=== PATIENT | female | born 1985 | race Caucasian/White ===

== ENCOUNTER 2021-12-12 14:45 | Outpatient (CLI) | payer BC, SELFPAY ==
--- OUTSIDE RECORDS SUMMARY | 2021-12-12 14:46 | XMS_ITS ---
:1985 Author Care Team Providers Name Role Phone Karlee Haganemarie Primary Care Provider Unavailable Allergies Code Code System Name Reaction Severity Status Onset NKDA ? Medications Name Status Start Date Stop Date ? ? Baby Aspirin 81 mg chewable tablet Active ? Not available Chew 1 tablet every day by oral route. digestive enzymes Active ? Not available Elderberry Active ? Not available + DHA Active ? Not available Probiotic Active ? Not available True Metrix Glucose Meter Active ? Not av ailable USE DIRECTED True Metrix Glucose Test Strip Active ? N ot available USE TO TEST BLOOD SUGAR 4 TIMES A DAY TRUEplus Lancets 28 gauge Active ? Not av ailable USE TO TEST BLOOD SUGAR 4 TIMES A DAY Vitamin C Active ? Not available Vitamin D3 Active ? Not available Problems Name Status Onset Date Source ? Obesity Active 06/13/2021 ? Mixed Anxiety and Depressive Disorder Active 06/13/2021 ? Active 06/13/2021 ? Procedures Date Name Performed by ? ? Extraction of [place] Tooth Information n ot available Results Lab Results None recorded. Past Encounters 11/15/2021 Routine Care Vanesa Hagan APRN CNM, WILLIAM: [address] [facility], [address] [address], [place] [address], Ph. 11/02/2021 Routine Care Vanesa Hagan APRN CNM, WHNP: [address] [facility], [facility] [address], [place] [address], Ph. 09/19/2021 Routine Care Vanesa Hagan APRN CNM, WHNP: [address] [facility], [address] [address], [place] [address], Ph. 07/25/2021 Routine Care Vanesa Hagan APRN CNM, WHNP: [address] [facility], [facility] [address], [place] [address], Ph. 06/13/2021 Routine Care Vanesa Hagan APRN CNM, WILLIAM: [address] [facility], [facility] [address], [place] [address], Ph. Social History Tobacco Smoking Status Never Smoker Vaccine List Notes: Declines flu and COVID-19 vacci ne Plan of Care Reminders Provider Appointments None recorded. ? ? Lab None recorded. ? ? Referral None recorded. ? ? Procedures None recorded. ? ? Surgeries None recorded. ? ? Imaging None recorded. ? ? Vitals 11/15/2021 02:00PM Visit Height Weight BMI Blood Pressure 62 in 275 lbs 6.4 oz 50.4 kg/m2 122/62 mm[Hg] 11/02/2021 09:00AM Visit Height Weight BMI Blood Pressure 62 in 274 lbs 8 oz 50.2 kg/m2 120/62 mm[Hg] 09/19/2021 03:00PM Visit Height Weight BMI Blood Pressure 62 in 264 lbs 48.3 kg/m2 118/62 mm[Hg] 07/25/2021 03:00PM Visit Height Weight BMI Blood Pressure 62 in 255 lbs 5.92 oz 46.7 kg/m2 116/64 mm[Hg] 06/13/2021 01:00PM Visit Height Weight BMI Blood Pressure 62 in 248 lbs 45.4 kg/m2 108/72 mm[Hg]
--- OUTSIDE RECORDS SUMMARY | 2021-12-12 14:46 | XMS_ITS | Encounter Summary ---
:1985 Author Reason for Visit (24, 25, 26, 27, 28 week) visit Assessment and Plan Assessment Note 1. EVETTE at 23.5 weeks gestation. 2. Obesity. - Reviewed PTL S/S, when to seek medical care. - Encouraged class via [place] if possible. - Encouraged daily baby ASA. - Reviewed comfort measures of ligament stretching and adequate hydration for suspicious constipation. - RTC in 4 weeks at [place], then 8 w eeks at [facility]. Time spent face to face for EVETTE was 40 m inutes. 1. Routine care Discussion Note: None recorded.Patient educational handouts: No information available. Plan of Care Reminders Provider Appointments Visit 12/20/2021 10:00AM Vanesa tan APRN CNLázaro, WILLIAM Lab None recorded. ? ? Referral None recorded. ? ? Procedures None recorded. ? ? Surgeries None recorded. ? ? Imaging None recorded. ? ? Medications Name Start Date ? ? Baby Aspirin 81 mg chewable tablet ? Chew 1 tablet every day by oral route. digestive enzymes ? Elderberry ? + DHA ? Probiotic ? True Metrix Glucose Meter ? USE DIRECTED True Metrix Glucose Test Strip ? USE TO TEST BLOOD SUGAR 4 TIMES A DAY TRUEplus Lancets 28 gauge ? USE TO TEST BLOOD SUGAR 4 TIMES A DAY Vitamin C ? Vitamin D3 ? Medications Administered None recorded. Vitals Height Weight BMI Blood Pressure 62 in 264 lbs 48.3 kg/m2 118/62 mm[Hg] Results Lab Results None recorded. Allergies Code Code System Name Reaction Severity Onset NKDA ? ? ? Problems Name Status Onset Date Source ? Obesity Active 06/13/2021 ? Mixed Anxiety and Depressive Disorder Active 06/13/2021 ? Active 06/13/2021 ? Procedures Date Name Performed by ? ? Extraction of [place] Tooth Information n ot available Vaccine List Notes: Declines flu and COVID-19 vacci ne Social History Tobacco Smoking Status Never Smoker Do you have difficulty walking or climbing N stairs? What type of diet are you following? REGULAR Have you been exposed to chemicals or N toxins? What is the highest grade or level of [id number] school you have completed or the highest degree you have received? Have you used any illegal drugs while N ? Do you have any transportation challenges? N Are you able to care for yourself? Y Are you currently employed? Y Are you blind or do you have difficulty N seeing? Do you have transportation difficulties? N Do you have enough food to eat? Y Have you been exposed to heavy metals? N Have you ever been hit/kicked/slapped or N raped in your current relationship? Do you have difficulty doing errands alone? N Have you consumed alcohol since becoming N ? Do you use any illicit or recreational N drugs? Have you ever experienced abuse from family N members, friends, past relationships, etc? Have there been any changes to your family N or social situation? What is your exercise level? Moderate What is your relationship status? Domestic partner What is your level of alcohol consumption? Moderate Notes: pre- Do you currently smoke or vape? N Are you sexually active? Y Are you deaf or do you have serious N difficulty hearing? Do you have people in your life you can Y reach out to for help Do you have difficulty concentrating, N remembering or making decisions? Are you passively exposed to smoke? Y No teresita: childhood Are you a survivor of abuse? N Do you or have you ever used any other N forms of tobacco or nicotine? Do you experience mental or emotional abuse N in your current relationship? Do you feel stressed (tense, restless, [id number] nervous, or anxious, or unable to sleep at night)? Do you have difficulty dressing or bathing? N Family History Relation Problem Onset Age of Age Notes Sister Polycystic ovary syndrome (No Information) N/A (No Notes) Functional Status No Impairment. Past Encounters 09/19/2021 Routine Care Vanesa Hagan APRN CNM, WILLIAM: [address] [facility], [place] [address], Ph. History of Present Illness Note: <div>This is a 36 year old presenting to the clinic for an EVETTE at 23.5 weekd gestation. See prentatl entry. Feeling well, no concerns. Anatomy U/S at [facility] and [facility]. Obtained a youth services librarian and excited to meet with her. Next visit in 4 weeks at [facility].</div>Review of Systems: ROS as noted in the HPI Review of Systems None recorded. Physical Exam ? Notes: See flowsheet
--- OUTSIDE RECORDS SUMMARY | 2021-12-12 14:46 | XMS_ITS | Encounter Summary ---
:1985 Author Reason for Visit (29, 30, 31 week) visit Assessment and Plan Assessment Note 1. EVETTE at 30 weeks. 2. Obesity. - Reviewed remainder of shared care mode l. Patient doing well, encouraged adequate hydration and limiting sugar within diet. - Encouraged swimming/tub soaks for feet swelling, as well as eliminating sodium intake. - RTC in 2 weeks. Time spent face to face for 30 week gest ation was 45 minutes. 1. Routine care Discussion Note: None recorded.Patient educational handouts: No information available. Plan of Care Reminders Provider Appointments Visit 12/20/2021 10:00AM Vanesa tan APRN CNM, WILLIAM Lab None recorded. ? ? Referral [...] lbs 8 oz 50.2 kg/m2 120/62 mm[Hg] Results Lab Results None recorded. Allergies Code Code System Name Reaction Severity Onset NKDA ? ? ? Problems Name Status Onset Date Source ? Obesity Active 06/13/2021 ? Mixed Anxiety and Depressive Disorder Active 06/13/2021 ? Active 06/13/2021 ? Procedures Date Name Performed by ? ? Extraction of [place] Tooth Information n ot available Vaccine List Notes: Declines flu and COVID-19 vacci ne Social History Tobacco Smoking Status Never Smoker Do you have difficulty walking or climbing N stairs? What type of diet are you following? REGULAR Have you been exposed to chemicals or N toxins? What is the highest grade or level of [id number] school you have completed or the highest [...] relationship? Do you feel stressed (tense, restless, [id number] nervous, or anxious, or unable to sleep at night)? Do you have difficulty dressing or bathing? N Family History Relation Problem Onset Age of Age Notes Sister Polycystic ovary syndrome (No Information) N/A (No Notes) Functional Status No Impairment. Past Encounters 11/02/2021 Routine Care Vanesa Hagan APRN CNM, WILLIAM: [address] [facility], [address], [place] [address], Ph. History of Present Illness Note: <div>Have you breastfed in the past? {{NA YES NO*}}
If so, did you meet you goals? {{NA* YES NO}}
Did you notice breast changes at the beginning of ?{{YES NO*}}
Do you have any history of breast surgery?{{YES-reduction YES-augmentation YES-other NO*}}
Do you have any concerns about the size or shape of your breasts or nipples?{{YES NO*}}
Do you have any other concerns about ?{{YES NO* NA-PLAN TO FORMULA FEED}}</div>Review of Systems: ROS as noted in the HPI Review of Systems None recorded. Physical Exam ? Notes: See flowsheet
--- OUTSIDE RECORDS SUMMARY | 2021-12-12 14:46 | XMS_ITS | Encounter Summary ---
:1985 Author Reason for Visit (32, 33, 34, 35 week) visit Assessment and Plan Assessment Note 1. EVETTE at 32.1 weeks gestation. 2. Stress. 3. Obesity. - Reviewed comfort measures of uterine c ramping. Reviewed PTL S/S and when to seek medical attention. - Encouraged 2 week EVETTE in [place] as they desire a growth U/S secondary to obesity. Reviewed WNL fundal height and guidelines facilities may follow with BMI >40. - RTC 2 week PP for mood check. Time spent face to face for EVETTE at 32 we eks was 50 minutes. 1. Routine care Discussion Note: None recorded.Patient educational handouts: No information available. Plan of Care Reminders Provider Appointments Visit 12/20/2021 10:00AM Vanesa tan APRN CNLázaro, WHVINEET Lab None recorded. ? ? Referral None [...] lbs 6.4 oz 50.4 kg/m2 122/62 mm[Hg] Results Lab Results None recorded. Allergies Code Code System Name Reaction Severity Onset NKDA ? ? ? Problems Name Status Onset Date Source ? Obesity Active 06/13/2021 ? Mixed Anxiety and Depressive Disorder Active 06/13/2021 ? Active 06/13/2021 ? Procedures Date Name Performed by ? ? Extraction of [place] Tooth Information n ot available Vaccine List Notes: Declines flu and COVID-19 vacci ne Social History Tobacco Smoking Status Never Smoker Do you have difficulty walking or climbing N stairs? What type of diet are you following? REGULAR Have you been exposed to chemicals or N toxins? What is the highest grade or level of [id number] school you have completed or the highest [...] relationship? Do you feel stressed (tense, restless, [id number] nervous, or anxious, or unable to sleep at night)? Do you have difficulty dressing or bathing? N Family History Relation Problem Onset Age of Age Notes Sister Polycystic ovary syndrome (No Information) N/A (No Notes) Functional Status No Impairment. Past Encounters 11/15/2021 Routine Care Vanesa Hagan APRN CNM, WHNP: [address] [facility], [address] [address], [place] [address], Ph. 11/02/2021 Routine Care Vanesa Hagan APRN CNM, WHNP: [address] [facility], [address] [address] [address], Ph. History of Present Illness Note: <div>Feeling well, no concerns. See OB flowsheet.</div>Review of Systems: ROS as noted in the HPI Review of Systems None recorded. Physical Exam ? Notes: See flowsheet
[2021-12-13 23:36] LABS: Strep B DNA Probe NEGATIVE (Negative)
== END 2021-12-12 14:46 | disposition home or self-care (01) ==
LOC: NFLDREF 14:45
PROVIDERS: Visit Provider Advanced Practice Midwife
DX: Z34.93 Encounter for supervision of normal pregnancy, unspecified, third trimester (principal); Z3A.36 36 weeks gestation of pregnancy
CPT/HCPCS: 87081; 87653

== ENCOUNTER 2022-01-15 14:55 | Outpatient (CLI) | payer BC, SELFPAY ==
--- OUTSIDE RECORDS SUMMARY | 2022-01-15 14:56 | XMS_ITS | Clinical Summary ---
:1985 Author Organization [facility] Address [address] [place] [address] Care Team Providers Name Role Phone None, Pcp Primary Care Provider Unavailable Allergies Active Allergy Reactions Severity Noted Date Comments Seasonal Other (see comments) Low 07/13/2020 Sinus c ongestion, drainage Medications Medication Sig Dispensed Refills Start Date End Date Status UNABLE TO FIND Med Name: 0 Activ e Livaplex, Ligaplex, OvexP, CystO, Cognitive enhancer, Beta, Magnesium Lactate, Tumeric Forte, Lymphtone, Lappa levothyroxine Take 1 tablet (50 30 tablet 3 07/26/2020 Active (Synthroid) 50 MCG mcg total) by tabletIndications: mouth 1 (one) time Hypothyroidism, each day unspecified type Immunizations Name Administration Dates Next Due Hepatitis A 01/08/2012 Meningococcal MCV4P 01/08/2012 Td 12/19/1998 Tdap 01/08/2012 Typhoid Inactivated 01/08/2012 Family History Medical History Relation Comments Obesity Father Obesity Father's Brother Obesity Father's Sister Heart disease Maternal Grandfather Anxiety disorder Maternal Grandmother Insomnia Maternal Grandmother Obesity Mother Obesity Mother's Brother No Known Problems Mother's Sister 1 Obesity Mother's Sister 2 Cancer Paternal Grandfather skin cancer Obesity Sister 1 Polycystic ovary syndrome Sister 1 Obesity Sister 2 Relation Status Comments Father Alive Father's Brother Alive half brother Father's Sister Alive half sister Maternal Grandfather Alive Maternal Grandmother Alive Mother Alive Mother's Brother Alive Mother's Sister 1 Alive Mother's Sister 2 Alive Paternal Grandfather Alive Paternal Grandmother never met grandmoth er Sister 1 Alive Sister 2 Alive Social History Tobacco Use Types Packs/Day Years Used Date Never Smoker Smokeless Tobacco: Never Used Alcohol Use Standard Drinks/Week Comments Yes 0 (1 standard drink = 0.6 oz pure alcoho l) Alcohol Habits Answer Date Recorded How often do you have a drink containing alcohol? 2-3 times a week 07/13/2020 How many drinks containing alcohol do you have on a 3 or 4 07/13/2020 typical day when you are drinking? How often do you have six or more drinks on one Monthly 07/13/2020 occasion? Comment: Not asked Sex Assigned at Date Recorded Not on file Last Filed Vital Signs Vital Sign Reading Time Taken Comments Blood Pressure 112/80 07/13/2020 8:27 AM CDT Pulse 72 07/13/2020 8:27 AM CDT Temperature 36.5 ??C (97.7 ??F) 07/13/2020 8:27 AM CDT Respiratory Rate 16 07/13/2020 8:27 AM CDT Oxygen Saturation 96% 07/13/2020 8:27 AM CDT Inhaled Oxygen Concentration - - Weight 105 kg (232 lb 9.4 oz) 07/13/2020 8:27 AM CDT Height 156.2 cm (5' 1.5) 07/13/2020 8:27 AM CDT Body Mass Index 43.24 07/13/2020 8:27 AM CDT Plan of Treatment Health Maintenance Due Date Last Done Comments COVID-19 Vaccine (#1) 01/18/1987 Pap Smear 01/23/2023 01/23/2018 HPV Vaccines Aged Out No longer eligib le based on patient's age to complete this topic Pneumococcal Vaccine: Pediatrics Aged Out No longer eligible based on (0 to 5 Years) and At-Risk patie nt's age to complete Patients (6 to 64 Years) this to [facility] Insurance Payer Benefit Plan / Subscriber ID Effective Dates Phone Addre ss Type Group BCBS OF BCBS OF [id number] 2019-Prese [address] [address] [place] [address] Care Teams Japanese Tutor Relationship Specialty Start Date End Date None, Pcp PCP - General 06/20/[address] [place] [phone]
--- OUTSIDE RECORDS SUMMARY | 2022-01-15 14:56 | XMS_ITS | Encounter Summary ---
:1985 Author Organization [facility] Address [address] [place] [address] Care Team Providers Name Role Phone Freida Stanton MD Primary Care Provider Unavailable Reason for Visit Reason Onset Date Comments need to schedule US 07/26/2020 Encounter Details Date Type Department Care Team Description 07/26/2020 Telephone Freida Pierre, need to schedule [address] [facility] [place] [address] Social History Tobacco Use Types Packs/Day Years [...] Assigned at Date Recorded Not on file documented as of this encounter Miscellaneous Notes Telephone Encounter - Ashanti Mcneal - 07/27/2020 9:57 AM CDT Pt doesn't want to have the ultrasound done or fill the rx for her thyroid. Telephone Encounter - Ashanti Mcneal - 07/26/2020 3:11 PM CDT LMTCB documented in this encounter Plan of Treatment Not on filedocumented as of this encounter Visit Diagnoses Not on filedocumented in this encounter Care Teams Student Support Counselor Relationship Specialty Start Date End Date Freida Stanton MD PCP - General Family Medicine 02/08/19 documented as of this encounter
--- OUTSIDE RECORDS SUMMARY | 2022-01-15 14:56 | XMS_ITS | Encounter Summary ---
:1985 Author Organization [facility] Address [address] [place] [address] Care Team Providers Name Role Phone Freida Stanton MD Primary Care Provider Unavailable Encounter Details Date Type Department Care Team Description 07/13/2020 Orders Only Freida Pierre Hypothyroidism, unspecified type (Primary Dx); [address] [place] [address] Social History Tobacco Use Types Packs/Day Years [...] on file documented as of this encounter Plan of Treatment Not on filedocumented as of this encounter Visit Diagnoses Diagnosis Hypothyroidism, unspecified type - Prima ry Irregular periods documented in this encounter Care Teams Branch Credit Counselor Relationship Specialty Start Date End Date Freida Stanton MD PCP - General Family Medicine 02/08/19 documented as of this encounter
--- OUTSIDE RECORDS SUMMARY | 2022-01-15 14:56 | XMS_ITS | Encounter Summary ---
:1985 Author Organization [facility] Address [address] [place] [address] Care Team Providers Name Role Phone Freida Stanton MD Primary Care Provider Unavailable Encounter Details Date Type Department Care Team Description 07/20/2020 Orders Only Family Med Freida Stanton MD [address] [place] [address] Social History Tobacco Use Types Packs/Day Years [...] on filedocumented in this encounter Care Teams Regulatory Affairs Assistant Relationship Specialty Start Date End Date Freida Stanton MD PCP - General Family Medicine 02/08/19 documented as of this encounter
--- OUTSIDE RECORDS SUMMARY | 2022-01-15 14:57 | XMS_ITS | Encounter Summary ---
:1985 Author Reason for Visit (36, 37, 38, 39, 40 week) visit Assessment and Plan Assessment Note 1. EVETTE at 37 weeks. 2. Obesity in . 3. AMA. - Reviewed comfort measures for swelling , joint discomfort and sleep. - Labor S/S reviewed, along with labor m aneuvers/comfort measures for malpositioned baby in labor. - PNC to be complete at [facility]. - Reviewed warning S/S of GHTN/Pre-eclam psia. - RTC in 1 week [facility]. - RTC at [facility] 2 weeks PP for mood check. Reviewed PP care done at [facility]. Time spent face to face reviewing end of , risk factors, warning S/S, comfort measures and coordinating a POC for PP was 60 minutes. 1. Routine care Discussion Note: None recorded.Patient educational handouts: No information available. Plan of Care Reminders Provider Appointments Return to Office on or around Vanesa azar, MANAGER [employer] 01/31/2022 OLIVIA, WILLIAM Lab None recorded. ? ? Referral None recorded. ? ? Procedures None recorded. ? ? Surgeries None recorded. ? ? Imaging None recorded. ? ? Medications Name Start Date ? ? Baby Aspirin 81 mg chewable tablet ? Chew 1 tablet every day by oral route. digestive enzymes ? Elderberry ? + DHA ? Probiotic ? Vitamin C ? Vitamin D3 ? Medications Administered None recorded. Vitals Height Weight BMI Blood Pressure 62 in 294 lbs 53.8 kg/m2 112/66 mm[Hg] Results Lab Results None recorded. Allergies Code Code System Name Reaction Severity Onset NKDA ? ? ? Problems Name Status Onset Date Source ? Mixed Anxiety and Depressive Disorder Active 06/13/2021 ? Active 06/13/2021 ? Obesity Active 12/20/2021 ? Procedures Date Name Performed by ? ? Extraction of [place] Tooth Information n ot available Vaccine List Notes: Declines flu and COVID-19 vacci ne Social History Tobacco Smoking Status Never Smoker Have you used any illegal drugs while N ? Do you have any transportation challenges? N Do you have difficulty walking or climbing N stairs? What type of diet are you following? REGULAR What is the highest grade or level of [id number] school you have completed or the highest degree you have received? Have you been exposed to chemicals or N toxins? Are you able to care for yourself? Y Are you currently employed? Y Are you blind or do you have difficulty N seeing? Do you have transportation difficulties? N Do you have enough food to eat? Y Have you been exposed to heavy metals? N Do you have difficulty doing errands alone? N Have you consumed alcohol since becoming N ? Do you use any illicit or recreational N drugs? What is your exercise level? Moderate Have there been any changes to your family N or social situation? What is your relationship status? Domestic partner What is your level of alcohol consumption? Moderate Notes: pre- Do you currently smoke or vape? N Are you sexually active? Y Do you have people in your life you can Y reach out to for help Are you deaf or do you have serious N difficulty hearing? Do you have difficulty concentrating, N remembering or making decisions? Are you a survivor of abuse? N Are you passively exposed to smoke? Y No teresita: childhood Do you or have you ever used any other N forms of tobacco or nicotine? Do you experience mental or emotional abuse N in your current relationship? Do you feel stressed (tense, restless, [id number] nervous, or anxious, or unable to sleep at night)? Do you have difficulty dressing or bathing? N Family History Relation Problem Onset Age of Age Notes Sister Polycystic ovary syndrome (No Information) N/A (No Notes) Functional Status No Impairment. Past Encounters 12/20/2021 Routine Care Vanesa Hagan APRN CNM, WHNP: [address] [facility] [address], [place] [address], Ph. History of Present Illness Note: <div>Presents alone. Feeling overall well, over it as her sleep has become uncomfortable and she is experiencing bilateral foot swelling. Using oils in the morning and evening to help redistribute the fluid. Encouraged to drink more water, take baths and/or a pool to help with ligament and swelling. Will try this weekend. Discussed risk factors: nullip, AMA, obesity and 40 lb weight gainfor potential complications. Reviewed warning S/S of GHTN/Pre- eclampsia: denies epigastric discomfort, RUQ discomfort, headaches or visual changes. B/P looks good. Discussed joint pain and comfort measures. Reviewed comfort measures of fluid retention. Discussed labor maneuvers,comfort positions for OP positioned baby. Baby OP per leopolds with EFW ~ 3700 grams, very active baby and with body habitus, estimate was difficult. Still goes to remittance clerk and chiropractor every week, along with massage once/week. Does not feel ready for baby, but ready for to be done. Was able to obtain another hyperbaric welder diver, Sandra Daniella. No growth U/S at [facility], WNL. GBS negative. Remainder of EVETTE at [facility], will schedule for 1 week. Labor S/S reviewed.</div>Review of Systems: ROS as noted in the HPI Review of Systems None recorded. Physical Exam ? Notes: See flowsheet
--- OUTSIDE RECORDS SUMMARY | 2022-01-15 14:57 | XMS_ITS | Encounter Summary ---
:1985 Author Reason for Visit (32, 33, 34, 35 week) visit Assessment and Plan Assessment Note 1. EVETTE at 32.1 weeks gestation. 2. Stress. 3. Obesity. - Reviewed comfort measures of uterine c ramping. Reviewed PTL S/S and when to seek medical attention. - Encouraged 2 week EVETTE in [place] as they desire a growth U/S secondary [...] Return to Office on or around Vanesa azar APRN 01/31/2022 CNM, WILLIAM Lab None recorded. ? ? [...] Name Performed by ? ? Extraction of [place] Tooth Information n ot available Vaccine List Notes: Declines flu and COVID-19 vacci ne Social History Tobacco Smoking Status Never Smoker Have you used any illegal drugs while N ? Do you have any transportation challenges? N Do you have difficulty walking or climbing N stairs? What type of diet are you following? REGULAR What is the highest grade or level of [id number] school you have completed or the highest [...] relationship? Do you feel stressed (tense, restless, [id number] nervous, or anxious, or unable to sleep at night)? Do you have difficulty dressing or bathing? N Family History Relation Problem Onset Age of Age Notes Sister Polycystic ovary syndrome (No Information) N/A (No Notes) Functional Status No Impairment. Past Encounters 11/15/2021 Routine Care Vanesa Hagan APRN CNM, WILLIAM: [address] [facility], [place] [address], [place] [address], Ph. 11/02/2021 Routine Care Vanesa Hagan APRN CNM, VINEET: [address] [facility], [place] [address], [place] [address], Ph. History of Present Illness Note: <div>Feeling well, no concerns. See OB flowsheet.</div>Review of Systems: ROS as noted in the HPI Review of Systems None recorded. Physical Exam ? Notes: See flowsheet
--- OUTSIDE RECORDS SUMMARY | 2022-01-15 14:57 | XMS_ITS ---
:1985 Author Care Team Providers Name Role Phone ArturoKarlee ricoemarie Primary Care Provider Unavailable Allergies Code Code [...] ? Not available True Metrix Glucose Meter Completed ? 2021 USE DIRECTED True Metrix Glucose Test Strip Completed ? 0 12/20/2021 USE TO TEST BLOOD SUGAR 4 TIMES A DAY TRUEplus Lancets 28 gauge Completed ? 2021 USE TO TEST BLOOD SUGAR 4 TIMES A DAY Vitamin C Active ? Not available Vitamin D3 Active ? Not available Problems Name Status Onset Date Source ? Mixed Anxiety and Depressive Disorder Active 06/13/2021 ? Active 06/13/2021 ? Obesity Active 12/20/2021 ? Procedures Date Name Performed by ? ? Extraction of [place] Tooth Information n ot available Results Lab Results None recorded. Past Encounters 12/20/2021 Routine Care Vanesa Hgaan APRN CNM, SPENSERNP: [address] [facility], [place] [address] [address], [place] [address], Ph. 11/15/2021 Routine Care Vanesa Hagan APRN CNM, VINEET: [address] [facility], [place] [address], Ph. 11/02/2021 Routine Care Vanesa Hagan APRN CNM, WILLIAM: [address] [facility], [facility] [address], [place] [address], Ph. 09/19/2021 Routine Care Vanesa Hagan APRN CNM, WILLIAM: [address] [facility], [facility] [address], [place] [address], Ph. 07/25/2021 Routine Care Vanesa Hagan APRN CNM, WILLIAM: [address] [facility], [place] [address], Ph. 06/13/2021 Routine Care Vanesa Hagan APRN CNM, WILLIAM: [address] [facility], [facility] [address], [place] [address], Ph. Social History Tobacco Smoking Status Never Smoker Vaccine List Notes: Declines flu and COVID-19 vacci ne Plan of Care Reminders Provider Appointments None recorded. ? ? Lab None recorded. ? ? Referral None recorded. ? ? Procedures None recorded. ? ? Surgeries None recorded. ? ? Imaging None recorded. ? ? Vitals 12/20/2021 10:00AM Visit Height Weight BMI Blood Pressure 62 in 294 lbs 53.8 kg/m2 112/66 mm[Hg] 11/15/2021 02:00PM Visit Height Weight BMI Blood [...]
--- OUTSIDE RECORDS SUMMARY | 2022-01-15 14:57 | XMS_ITS | Encounter Summary ---
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
--- OUTSIDE RECORDS SUMMARY | 2022-01-15 14:57 | XMS_ITS | Encounter Summary ---
:1985 Author Organization [facility] Address [address] [place] [address] Care Team Providers Name Role Phone Freida Stanton MD Primary Care Provider Unavailable Reason for Visit Reason Comments Annual Exam Encounter Details Date Type Department Care Team Description 02/08/2019 Office Visit Freida Pierre Well adult exam [address] [facility] [place] Iliana (Primary Dx) [place] [address] Social History Tobacco Use Types Packs/Day Years [...] on file documented as of this encounter Last Filed Vital Signs Vital Sign Reading Time Taken Comments Blood Pressure 120/72 02/08/2019 10:19 AM CDT Pulse 68 02/08/2019 10:19 AM CDT Temperature 36.5 ??C (97.7 ??F) 02/08/2019 10:19 AM CDT Respiratory Rate 16 02/08/2019 10:19 AM CDT Oxygen Saturation - - Inhaled Oxygen Concentration - - Weight 107 kg (236 lb 5.3 oz) 02/08/2019 10:19 AM CDT Height 155.6 cm (5' 1.26) 02/08/2019 10:19 AM CDT Body Mass Index 44.28 02/08/2019 10:19 AM CDT documented in this encounter Patient Instructions Patient InstructionsFrances E. Maximino, MD - 02/08/2019 10:20 AM CDT Patient Education Health Maintenance, Female Adopting a healthy lifestyle and getting preventive care can go a long way to promote health and wellness. Talk with your health care provider about what schedule of regular examinations is right for you. This is a good chance for you to check in with your provider about disease prevention and stayinghealthy. In between checkups, there are plenty of things you can do on your own. Experts have done a lot of research about which lifestyle changes and preventive measures are most likely to keep you healthy. Ask your health care provider for more information. Weight and diet Eat a healthy diet ?? Be sure to include plenty of vegetables, fruits, low-fat dairy products, and lean protein. ?? Do not eat a lot of foods high in solid fats, added sugars, or salt. ?? Get regular exercise. This is one of the most important things you can do for your health. ? Most adults should exercise for at least 150 minutes each week. The exercise should increase your heart rate and make you sweat (moderate-intensity exercise). ? Most adults should also do strengthening exercises at least twice a week. This is in addition to the moderate-intensity exercise. Maintain a healthy weight ?? Body mass index (BMI) is a measurement that can be used to identify possible weight problems. It estimates body fat based on height and weight. Your health care provider can help determine your BMI and help you achieve or maintain a healthy weight. ?? For females 20 years of age and older: ? A BMI below 18.5 is considered underweight. ? A BMI of 18.5 to 24.9 is normal. ? A BMI of 25 to 29.9 is considered overweight. ? A BMI of 30 and above is considered obese. Watch levels of cholesterol and blood lipids ?? You should start having your blood tested for lipids and cholesterol at 20 years of age, then have this test every 5 years. ?? You may need to have your cholesterol levels checked more often if: ? Your lipid or cholesterol levels are high. ? You are older than 50 years of age. ? You are at high risk for heart disease. Cancer screening Lung Cancer ?? Lung cancer screening is recommended for adults 55-80 years old who are at high risk for lung cancer because of a history of smoking. ?? A yearly low-dose CT scan of the lungs is recommended for people who: ? Currently smoke. ? Have quit within the past 15 years. ? Have at least a [id number] history of smoking. A pack year is smoking an average of one pack of cigarettes a day for 1 year. ?? Yearly screening should continue until it has been 15 years since you quit. ?? Yearly screening should stop if you develop a health problem that would prevent you from having lung cancer treatment. Breast Cancer ?? Practice breast self-awareness. This means understanding how your breasts normally appear and feel. ?? It also means doing regular breast self-exams. Let your health care provider know about any changes, no matter how small. ?? If you are in your 20s or 30s, you should have a clinical breast exam (CBE) by a health care provider every 1-3 years as part of a regular health exam. ?? If you are 40 or older, have a CBE every year. Also consider having a breast X-ray (mammogram) every year. ?? If you have a family history of breast cancer, talk to your health care provider about genetic screening. ?? If you are at high risk for breast cancer, talk to your health care provider about having an MRI and a mammogram every year. ?? Breast cancer gene (BRCA) assessment is recommended for women who have family members with BRCA-related cancers. BRCA-related cancers include: ? Breast. ? Ovarian. ? Tubal. ? Peritoneal cancers. ?? Results of the assessment will determine the need for genetic counseling and BRCA1 and BRCA2 testing. Cervical Cancer Your health care provider may recommend that you be screened regularly for cancer of the pelvic organs (ovaries, uterus, and vagina). This screening involves a pelvic examination, including checking for microscopic changes to the surface of your cervix (Pap test). You may be encouraged to have this screening done every 3 years, beginning at age 21. ?? For women ages 30-65, health care providers may recommend pelvic exams and Pap testing every 3 years, or they may recommend the Pap and pelvic exam, combined with testing for human papilloma virus (HPV), every 5 years. Some types of HPV increase your risk of cervical cancer. Testing for HPV may also be done on women of any age with unclear Pap test results. ?? Other health care providers may not recommend any screening for non women who are considered low risk for pelvic cancer and who do not have symptoms. Ask your health care provider if a screening pelvic exam is right for you. ?? If you have had past treatment for cervical cancer or a condition that could lead to cancer, you need Pap tests and screening for cancer for at least 20 years after your treatment. If Pap tests havebeen discontinued, your risk factors (such as having a new sexual partner) need to be reassessed to determine if screening should resume. Some women have medical problems that increase the chance of getting cervical cancer. In these cases, your health care provider may recommend more frequent screening and Pap tests. Colorectal Cancer ?? This type of cancer can be detected and often prevented. ?? Routine colorectal cancer screening usually begins at 50 years of age and continues through 75 years of age. ?? Your health care provider may recommend screening at an earlier age if you have risk factors for colon cancer. ?? Your health care provider may also recommend using home test kits to check for hidden blood in the stool. ?? A small camera at the end of a tube can be used to examine your colon directly (sigmoidoscopy or colonoscopy). This is done to check for the earliest forms of colorectal cancer. ?? Routine screening usually begins at age 50. ?? Direct examination of the colon should be repeated every 5-10 years through 75 years of age. However, you may need to be screened more often if early forms of precancerous polyps or small growths are found. Skin Cancer ?? Check your skin from head to toe regularly. ?? Tell your health care provider about any new moles or changes in moles, especially if there is a change in a mole's shape or color. ?? Also tell your health care provider if you have a mole that is larger than the size of a pencil eraser. ?? Always use sunscreen. Apply sunscreen liberally and repeatedly throughout the day. ?? Protect yourself by wearing long sleeves, pants, a wide-brimmed hat, and sunglasses whenever you are outside. Heart disease, diabetes, and high blood pressure ?? High blood pressure causes heart disease and increases the risk of stroke. High blood pressure ismore likely to develop in: ? People who have blood pressure in the high end of the normal range (130-139/85-89 mm Hg). ? People who are overweight or obese. ? People who are . ?? If you are 18-39 years of age, have your blood pressure checked every 3-5 years. If you are 40 years of age or older, have your blood pressure checked every year. You should have your blood pressuremeasured twice--once when you are at a hospital or clinic, and once when you are not at a hospital or clinic. Record the average of the two measurements. To check your blood pressure when you are not at a hospital or clinic, you can use: ? An automated blood pressure machine at a pharmacy. ? A home blood pressure monitor. ?? If you are between 55 years and 79 years old, ask your health care provider if you should take aspirin to prevent strokes. ?? Have regular diabetes screenings. This involves taking a blood sample to check your fasting bloodsugar level. ? If you are at a normal weight and have a low risk for diabetes, have this test once every three years after 45 years of age. ? If you are overweight and have a high risk for diabetes, consider being tested at a younger age ormore often. Preventing infection Hepatitis B ?? If you have a higher risk for hepatitis B, you should be screened for this virus. You are considered at high risk for hepatitis B if: ? You were born in a country where hepatitis B is common. Ask your health care provider which countries are considered high risk. ? Your parents were born in a high-risk country, and you have not been immunized against hepatitis B(hepatitis B vaccine). ? You have HIV or AIDS. ? You use needles to inject street drugs. ? You live with someone who has hepatitis B. ? You have had sex with someone who has hepatitis B. ? You get hemodialysis treatment. ? You take certain medicines for conditions, including cancer, organ transplantation, and autoimmuneconditions. Hepatitis C ?? Blood testing is recommended for: ? Everyone born from 1945 through 1965. ? Anyone with known risk factors for hepatitis C. Sexually transmitted infections (STIs) ?? You should be screened for sexually transmitted infections (STIs) including gonorrhea and chlamydia if: ? You are sexually active and are younger than 24 years of age. ? You are older than 24 years of age and your health care provider tells you that you are at risk for this type of infection. ? Your sexual activity has changed since you were last screened and you are at an increased risk forchlamydia or gonorrhea. Ask your health care provider if you are at risk. ?? If you do not have HIV, but are at risk, it may be recommended that you take a prescription medicine daily to prevent HIV infection. This is called pre- exposure prophylaxis (PrEP). You are considered at risk if: ? You are sexually active and do not regularly use condoms or know the HIV status of your partner(s). ? You take drugs by injection. ? You are sexually active with a partner who has HIV. Talk with your health care provider about whether you are at high risk of being infected with HIV. If you choose to begin PrEP, you should first be tested for HIV. You should then be tested every 3 months for as long as you are taking PrEP. ?? If you are premenopausal and you may become , ask your health care provider about preconception counseling. ?? If you may become , take 400 to 800 micrograms (mcg) of folic acid every day. ?? If you want to prevent , talk to your health care provider about control (contraception). Osteoporosis and menopause ?? Osteoporosis is a disease in which the bones lose minerals and strength with aging. This can result in serious bone fractures. Your risk for osteoporosis can be identified using a bone density scan. ?? If you are 65 years of age or older, or if you are at risk for osteoporosis and fractures, ask your health care provider if you should be screened. ?? Ask your health care provider whether you should take a calcium or vitamin D supplement to lower your risk for osteoporosis. ?? Menopause may have certain physical symptoms and risks. ?? Hormone replacement therapy may reduce some of these symptoms and risks. Talk to your health care provider about whether hormone replacement therapy is right for you. Follow these instructions at home: ?? Schedule regular health, dental, and eye exams. ?? Stay current with your immunizations. ?? Do not use any tobacco products including cigarettes, chewing tobacco, or electronic cigarettes. ?? If you are , do not drink alcohol. ?? If you are , limit how much and how often you drink alcohol. ?? Limit alcohol intake to no more than 1 drink per day for non women. One drink equals 12 ounces of beer, 5 ounces of wine, or 1?? ounces of hard liquor. ?? Do not use street drugs. ?? Do not share needles. ?? Ask your health care provider for help if you need support or information about quitting drugs. ?? Tell your health care provider if you often feel depressed. ?? Tell your health care provider if you have ever been abused or do not feel safe at home. This information is not intended to replace advice given to you by your health care provider. Make sure you discuss any questions you have with your health care provider. Document Released: 10/21/2011 Document Revised: 09/12/2016 Document Reviewed: 01/09/2016 [employer] Interactive Patient Education ?? 2019 Zones. documented in this encounter Progress Notes Freida Stanton MD - 02/08/2019 10:20 AM CDT Well Adult - Estab Subjective Patient ID: Rosie Stein is a 33 y.o. female. Chief Complaint Patient presents with ??? Annual Exam HPI Patient is a 33-year-old P0 who is here for an annual physical exam. She tells me she has had labs done 3 months ago that were normal. She shows me on her phone that a complete metabolic panel done on August 01, 2018 was completely normal and hemoglobin A1c was 4.9 at that time. She had a Pap smear last year that was normal including HPV testing. She declines flu vaccine today. She tells me that she has been doing a program called nutrition response testing which is in [place]. She [facility] [employer] and says that she has been doing that for 18 months and has changed her life. She is on various supplements and the goal is to taper off supplements completely. The idea is that she has reducedher processed and packaged food intake and eating more whole foods. She admits that the summer months are harder because she goes out quite a bit with her friends and eats out. She also consumes alcohol 2-3 times per week and when she drinks she drinks 2-4 alcoholic beverages per evening. She does notuse tobacco. 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 She exercises 3-5 times per week. She says her weight is stable. She lives by herself. She works in the [employer]. She has a monogamous relationship with a male partner. She has no concerns about STDs. She says that her periods are every 40 to 45 days andbleeding is 3 to 4 days and not heavy. She says her periods have always been somewhat irregular. Sheis to be on control but this caused her to have mood symptoms. She uses barrier method and timing of ovulation to avoid . Current Outpatient Medications on File Prior to Visit Medication Sig Dispense Refill ??? LILLOW 0.15-30 MG-MCG per tablet Take 1 tablet by mouth 1 (one) time each day (Patient not taking: Reported on 02/08/2019) 28 tablet 3 No current facility-administered medications on file prior to visit. Patient has no known allergies. Immunization History Administered Date(s) Administered ??? Hepatitis A 01/08/2012 ??? Meningococcal MCV4P 01/08/2012 ??? Td 12/19/1998 ??? Tdap 01/08/2012 ??? Typhoid Inactivated 01/08/2012 The following portions of the patient's chart were reviewed in this encounter and updated as appropriate: Tobacco Allergies Meds Med Hx Surg Hx Fam Hx Review of Systems Constitutional: Negative. HENT: Negative. Eyes: Negative. Respiratory: Negative. Cardiovascular: Negative. Gastrointestinal: Negative. Genitourinary: Negative. Musculoskeletal: Negative. Skin: Negative. Psychiatric/Behavioral: Negative. See HPI. Objective Physical Exam Blood pressure 120/72, pulse 68, temperature 36.5 ??C (97.7 ??F), temperature source Temporal, resp.rate 16, height 1.556 m (5' 1.26), weight 107 kg (236 lb 5.3 oz). General Appearance: Alert, cooperative, no distress. Head: Normocephalic, without obvious abnormality. Eyes: PERRL, conjunctiva/corneas clear, EOM's intact, fundi benign, both eyes Ears: Normal TM's and external ear canals, both ears Nose: Nares normal, no drainage Throat: Lips, mucosa, and tongue normal; teeth and gums normal Neck: Supple, symmetrical, trachea midline, no adenopathy; no thyromegaly Back: No tenderness. ROM normal. Lungs: Clear to auscultation bilaterally, respirations unlabored Chest Wall: No tenderness or deformity Heart: Regular rate and rhythm, S1 and S2 normal, no murmur, rub or gallop Breast Exam: No tenderness, masses, or nipple abnormality Abdomen: Soft, nontender, nondistended, no organomegaly. Normoactive bowel sounds. Genitalia: not performed Rectal: not performed Extremities: Extremities normal, atraumatic, without edema Pulses: 2+ and symmetric all extremities Skin: Skin without rashes or lesions Lymph nodes: Cervical, supraclavicular, and axillary nodes normal Neurologic: CNII-XII intact, normal strength, sensation and reflexes throughout PHQ 9 = 0 GAD7 = 1 Assessment/Plan Diagnoses and all orders for this visit: Well adult exam Patient's exam is notable for obesity but otherwise unremarkable. She has a healthy lifestyle and wedid discuss reducing alcohol intake. We also discussed influenza vaccine which she declines. I reviewed her previous labs including a normal TSH and CBC and an unremarkable lipid panel. She does not wish to do any further lab testing today and I do not think any are indicated. Patient information given regarding wellness. She will let me know if she wants to discuss further about family planning. Health Maintenance Due Topic Date Due ??? Pneumococcal PPSV23 Medium Risk Adult (1 of 1 - PPSV23) 2005 There are no Patient Instructions on file for this visit. documented in this encounter Plan of Treatment Not on filedocumented as of this encounter Visit Diagnoses Diagnosis Well adult exam - Primary Routine general medical examination at a health care facility documented in this encounter Care Teams Organ Fixer Relationship Specialty Start Date End Date Freida Stanton MD PCP - General Family Medicine 02/08/19 documented as of this encounter
--- OUTSIDE RECORDS SUMMARY | 2022-01-15 14:57 | XMS_ITS | Encounter Summary ---
:[address] 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
--- OUTSIDE RECORDS SUMMARY | 2022-01-15 14:57 | XMS_ITS | Encounter Summary ---
:[address] [facility] Address [address] [place] [address] Care Team Providers Name Role Phone Freida Stanton MD Primary Care Provider Unavailable Reason for Referral Consultation (Routine) - Closed Specialty Diagnoses / Procedures Referred By Contact Refer red To Contact Sleep Medicine Diagnoses Freida Gates MD [address] [place] [address] Referral ID Status Reason Start Date Expiration Date Visits V isits Requested Authorized [id number] Closed Specialty 07/13/2020 01/09/2021 1 1 Services Required Scheduling Instructions Staff from this department will contact the patient to schedule an appointment. Reason for Visit Reason Comments Annual Exam hormone imbalance left shoulder pain seeing chiropracter Encounter Details Date Type Department Care Team Description 07/13/2020 Office Visit Freida Pierre Well adult exam (Primary Dx) ; [address] [place] [address] Esa Barrientos MD Irregular periods; [place] [address] Encounter for preconception consultation; [phone] [place] Social History Tobacco Use Types Packs/Day Years [...] Mass Index 43.24 07/13/2020 8:27 AM CDT documented in this encounter Patient Instructions Patient InstructionsFrances Iliana Stanton MD - 07/13/2020 8:20 AM CDT Images from the original note were not included. Patient Education Preventive Care 21-39 Years Old, Female Preventive care refers to visits with your health care provider and lifestyle choices that can promote health and wellness. This includes: ?? A yearly physical exam. This may also be called an annual well check. ?? Regular dental visits and eye exams. ?? Immunizations. ?? Screening for certain conditions. ?? Healthy lifestyle choices, such as eating a healthy diet, getting regular exercise, not using drugs or products that contain nicotine and tobacco, and limiting alcohol use. What can I expect for my preventive care visit? Physical exam Your health care provider will check your: ?? Height and weight. This may be used to calculate body mass index (BMI), which tells if you are humble healthy weight. ?? Heart rate and blood pressure. ?? Skin for abnormal spots. Counseling Your health care provider may ask you questions about your: ?? Alcohol, tobacco, and drug use. ?? Emotional well-being. ?? Home and relationship well-being. ?? Sexual activity. ?? Eating habits. ?? Work and work environment. ?? Method of control. ?? Menstrual cycle. ?? history. What immunizations do I need? Influenza (flu) vaccine ?? This is recommended every year. Tetanus, diphtheria, and pertussis (Tdap) vaccine ?? You may need a Td booster every 10 years. Varicella (chickenpox) vaccine ?? You may need this if you have not been vaccinated. Human papillomavirus (HPV) vaccine ?? If recommended by your health care provider, you may need three doses over 6 months. Measles, mumps, and rubella (MMR) vaccine ?? You may need at least one dose of MMR. You may also need a second dose. Meningococcal conjugate (MenACWY) vaccine ?? One dose is recommended if you are age 19-21 years and a first-year college student living in a residence [place], or if you have one of several medical conditions. You may also need additional boosterdoses. Pneumococcal conjugate (PCV13) vaccine ?? You may need this if you have certain conditions and were not previously vaccinated. Pneumococcal polysaccharide (PPSV23) vaccine ?? You may need one or two doses if you smoke cigarettes or if you have certain conditions. Hepatitis A vaccine ?? You may need this if you have certain conditions or if you travel or work in places where you maybe exposed to hepatitis A. Hepatitis B vaccine ?? You may need this if you have certain conditions or if you travel or work in places where you maybe exposed to hepatitis B. Haemophilus influenzae type b (Hib) vaccine ?? You may need this if you have certain conditions. You may receive vaccines as individual doses or as more than one vaccine together in one shot (combination vaccines). Talk with your health care provider about the risks and benefits of combination vaccines. What tests do I need? Blood tests ?? Lipid and cholesterol levels. These may be checked every 5 years starting at age 20. ?? Hepatitis C test. ?? Hepatitis B test. Screening ?? Diabetes screening. This is done by checking your blood sugar (glucose) after you have not eaten for a while (fasting). ?? Sexually transmitted disease (STD) testing. ?? BRCA-related cancer screening. This may be done if you have a family history of breast, ovarian, tubal, or peritoneal cancers. ?? Pelvic exam and Pap test. This may be done every 3 years starting at age 21. Starting at age 30, this may be done every 5 years if you have a Pap test in combination with an HPV test. Talk with your health care provider about your test results, treatment options, and if necessary, the need for more tests. Follow these instructions at home: Eating and drinking ?? Eat a diet that includes fresh fruits and vegetables, whole grains, lean protein, and low-fat dairy. ?? Take vitamin and mineral supplements as recommended by your health care provider. ?? Do not drink alcohol if: ? Your health care provider tells you not to drink. ? You are , may be , or are planning to become . ?? If you drink alcohol: ? Limit how much you have to 0-1 drink a day. ? Be aware of how much alcohol is in your drink. In the [place] one drink equals one 12 oz bottle of beer (355 mL), one 5 oz glass of wine (148 mL), or one 1?? oz glass of hard liquor (44 mL). Lifestyle ?? Take daily care of your teeth and gums. ?? Stay active. Exercise for at least 30 minutes on 5 or more days each week. ?? Do not use any products that contain nicotine or tobacco, such as cigarettes, e-cigarettes, and chewing tobacco. If you need help quitting, ask your health care provider. ?? If you are sexually active, practice safe sex. Use a condom or other form of control (contraception) in order to prevent and STIs (sexually transmitted infections). If you plan to become , see your health care provider for a preconception visit. What's next? ?? Visit your health care provider once a year for a well check visit. ?? Ask your health care provider how often you should have your eyes and teeth checked. ?? Stay up to date on all vaccines. This information is not intended to replace advice given to you by your health care provider. Make sure you discuss any questions you have with your health care provider. Document Released: 06/03/2002 Document Revised: 12/17/2018 Document Reviewed: 12/17/2018 [employer] Patient Education ?? 2020 [employer]. documented in this encounter Progress Notes Freida Stanton MD - 07/13/2020 8:20 AM CDT Images from the original note were not included. Well Adult - Estab Subjective Patient ID: Rosie Stein is a 34 y.o. female. Chief Complaint Patient presents with ??? Annual Exam ??? hormone imbalance ??? left shoulder pain seeing chiropracter HPI Patient is a 34-year-old female P0 who was last seen in clinic by me in January 2019. She had a normal Pap and HPV testing at that time with recommendations to repeat in 5 years. She had labs drawn in 2019 that showed lipid panel of 159/101/61/77 and a glucose of 89. She had a TSH in 2017 that was 3.18. Concerns today are her irregular periods and fertility concerns. She says her periods have mostly been irregular since she started having periods at age 13. she says that she had regular periods when she was on the control pill but stopped that a couple of years ago. She then had a period of time where her periods were every 31 days when she was off the pill but then they were more irregular recently when she was on a keto diet where she lost 15 pounds. Now she is more on a well-balanced diet.She has some frustration because despite eating very well and working out regularly, she has plateaued as far as weight loss. She is in a relationship and considering starting a family though at this time they are using condoms for control. She is on a daily multivitamin with folic acid. She reports some increased anxiety related to work related stressors. She reports longstanding poor sleep, she sleeps on her back and does snore. She has some daytime sleepiness. She reports longstanding digestive problems with history of reflux that has resolved but she does have intermittent constipation and diarrhea. She does not smoke. She drinks 2-3 times per week and drinks 2-3 beverages per outing. Current Outpatient Medications on File Prior to Visit Medication Sig Dispense Refill ??? UNABLE TO FIND Med Name: Livaplex, Ligaplex, OvexP, CystO, Cognitive enhancer, Beta, Magnesium Lactate, Tumeric Forte, Lymphtone, Lappa No current facility-administered medications on file prior to visit. Seasonal Immunization History Administered Date(s) Administered ??? Hepatitis A 01/08/2012 ??? Meningococcal MCV4P 01/08/2012 ??? Td 12/19/1998 ??? Tdap 01/08/2012 ??? Typhoid Inactivated 01/08/2012 The following portions of the patient's chart were reviewed in this encounter and updated as appropriate: Tobacco Allergies Meds Med Hx Surg Hx Fam Hx Soc Hx Review of Systems As per HPI, All other systems reviewed and negative. Objective Physical Exam Blood pressure 112/80, pulse 72, temperature 36.5 ??C (97.7 ??F), temperature source Temporal, resp.rate 16, height 1.562 m (5' 1.5), weight 105 kg (232 lb 9.4 oz), SpO2 96 %. General Appearance: Alert, cooperative, no distress. Head: [...] no murmur, rub or gallop Breast Exam: Not examined Abdomen: Soft, nondistended, no organomegaly. She has some mild tenderness to deep palpation in the right lower abdomen but no palpable abnormality, no guarding or rebound. Normoactive bowel sounds. Genitalia: Not examined Rectal: Not examined Extremities: Extremities normal, atraumatic, without edema Pulses: 2+ and symmetric all extremities Skin: Skin without rashes or lesions Lymph nodes: Cervical, supraclavicular nodes normal Neurologic: No focal deficits PHQ 9 = 5 MOLLY 7 = 9 Assessment/Plan Diagnoses and all orders for this visit: Well adult exam Irregular periods - CBC Branch Off w/Diff; Future - TSH; Future - T4, free; Future - Comprehensive metabolic panel; Future - Ultrasound transvaginal non-OB; Future Encounter for preconception consultation - TSH; Future Snores - Ambulatory referral to Sleep Medicine A significant goal for her is to improve her sleep and after discussion, discussed having a referralto the clinic for possible sleep apnea. Discussed reducing or stopping alcohol intake. Discussed her fertility and would like to recheck her TSH with a goal of having her TSH less than 2.5. Also would like to obtain a pelvic ultrasound. Advised her to continue taking a multivitamin with folic acid if she is planning . Advised abstinence from alcohol. I will contact her with these results. She will be due for repeat HPV and Pap smear in January 2023. This dictation was created with voice recognition software and therefore may contain errors that went unnoticed. There are no preventive care reminders to display for this patient. Patient Instructions Patient Education Preventive Care 21-39 Years Old, Female Preventive care refers to visits with your health care provider and lifestyle choices that can promote health and wellness. This includes: ?? A yearly physical exam. This may also be called an annual well check. ?? Regular dental visits and eye exams. ?? Immunizations. ?? Screening for certain conditions. ?? Healthy lifestyle choices, such as eating a healthy diet, getting regular exercise, not using drugs or products that contain nicotine and tobacco, and limiting alcohol use. What can I expect for my preventive care visit? Physical exam Your health care provider will check your: ?? Height and weight. This may be used to calculate body mass index (BMI), which tells if you are humble healthy weight. ?? Heart rate and blood pressure. ?? Skin for abnormal spots. Counseling Your health care provider may ask you questions about your: ?? Alcohol, tobacco, and drug use. ?? Emotional well-being. ?? Home and relationship well-being. ?? Sexual activity. ?? Eating habits. ?? Work and work environment. ?? Method of control. ?? Menstrual cycle. ?? history. What immunizations do I need? Influenza (flu) vaccine ?? This is recommended every year. Tetanus, diphtheria, and pertussis (Tdap) vaccine ?? You may need a Td booster every 10 years. Varicella (chickenpox) vaccine ?? You may need this if you have not been vaccinated. Human papillomavirus (HPV) vaccine ?? If recommended by your health care provider, you may need three doses over 6 months. Measles, mumps, and rubella (MMR) vaccine ?? You may need at least one dose of MMR. You may also need a second dose. Meningococcal conjugate (MenACWY) vaccine ?? One dose is recommended if you are age 19-21 years and a first-year college student living in a residence [place], or if you have one of several medical conditions. You may also need additional boosterdoses. Pneumococcal conjugate (PCV13) vaccine ?? You may need this if you have certain conditions and were not previously vaccinated. Pneumococcal polysaccharide (PPSV23) vaccine ?? You may need one or two doses if you smoke cigarettes or if you have certain conditions. Hepatitis A vaccine ?? You may need this if you have certain conditions or if you travel or work in places where you maybe exposed to hepatitis A. Hepatitis B vaccine ?? You may need this if you have certain conditions or if you travel or work in places where you maybe exposed to hepatitis B. Haemophilus influenzae type b (Hib) vaccine ?? You may need this if you have certain conditions. You may receive vaccines as individual doses or as more than one vaccine together in one shot (combination vaccines). Talk with your health care provider about the risks and benefits of combination vaccines. What tests do I need? Blood tests ?? Lipid and cholesterol levels. These may be checked every 5 years starting at age 20. ?? Hepatitis C test. ?? Hepatitis B test. Screening ?? Diabetes screening. This is done by checking your blood sugar (glucose) after you have not eaten for a while (fasting). ?? Sexually transmitted disease (STD) testing. ?? BRCA-related cancer screening. This may be done if you have a family history of breast, ovarian, tubal, or peritoneal cancers. ?? Pelvic exam and Pap test. This may be done every 3 years starting at age 21. Starting at age 30, this may be done every 5 years if you have a Pap test in combination with an HPV test. Talk with your health care provider about your test results, treatment options, and if necessary, the need for more tests. Follow these instructions at home: Eating and drinking ?? Eat a diet that includes fresh fruits and vegetables, whole grains, lean protein, and low-fat dairy. ?? Take vitamin and mineral supplements as recommended by your health care provider. ?? Do not drink alcohol if: ? Your health care provider tells you not to drink. ? You are , may be , or are planning to become . ?? If you drink alcohol: ? Limit how much you have to 0-1 drink a day. ? Be aware of how much alcohol is in your drink. In the [place] one drink equals one 12 oz bottle of beer (355 mL), one 5 oz glass of wine (148 mL), or one 1?? oz glass of hard liquor (44 mL). Lifestyle ?? Take daily care of your teeth and gums. ?? Stay active. Exercise for at least 30 minutes on 5 or more days each week. ?? Do not use any products that contain nicotine or tobacco, such as cigarettes, e-cigarettes, and chewing tobacco. If you need help quitting, ask your health care provider. ?? If you are sexually active, practice safe sex. Use a condom or other form of control (contraception) in order to prevent and STIs (sexually transmitted infections). If you plan to become , see your health care provider for a preconception visit. What's next? ?? Visit your health care provider once a year for a well check visit. ?? Ask your health care provider how often you should have your eyes and teeth checked. ?? Stay up to date on all vaccines. This information is not intended to replace advice given to you by your health care provider. Make sure you discuss any questions you have with your health care provider. Document Released: 06/03/2002 Document Revised: 12/17/2018 Document Reviewed: 12/17/2018 [employer] Patient Education ?? 2020 [employer]. documented in this encounter Plan of Treatment Scheduled Orders Name Type Priority Associated Diagnoses Order S chedule Ultrasound transvaginal Imaging Routine Irregular periods Expected: 07/13/2020, non-OB Expires: 2021 Scheduled Referrals Name Type Priority Associated Order Schedule Diagnoses Ambulatory referral Outpatient Referral Routine Snores O rdered: to Sleep Medicine 07/13/2020 documented as of this encounter Results Comprehensive metabolic panel (07/13/2020 9:36 AM CDT) athologist Signature Total Protein 6.8 6.3 - 8.2 07/13/2020 [place] g/dL 1:44 PM [facility] Albumin, Serum 4.0 3.5 - 5.0 07/13/2020 [place] g/dL 1:44 PM [facility] Total Bilirubin <0.7 0.1 - 1.0 07/13/2020 [place] mg/dL 1:44 PM [facility] AST 24 8 - 43 U/L 07/13/2020 [place] 1:[address] [facility] Alkaline 38 38 - 128 07/13/2020 [place] Phosphatase U/L 1:44 PM [facility] ALT (SGPT) 27 0 - 34 U/L 07/13/2020 [place] 1:44 PM [facility] Sodium 138 135 - 145 07/13/2020 [place] mEq/L 1:44 PM [facility] Potassium 4.0 3.5 - 5.1 07/13/2020 [place] mEq/L 1:44 PM [facility] Chloride 107 98 - 107 07/13/2020 [place] mEq/L 1:44 PM [facility] CO2 27 22 - 29 07/13/2020 [place] mmol/L 1:44 PM [facility] BUN 14 5 - 25 07/13/2020 [place] mg/dL 1:44 PM [facility] Creatinine 0.7 0.4 - 1.2 07/13/2020 [place] mg/dL 1:44 PM [facility] Glucose 99 70 - 100 07/13/2020 [place] mg/dL 1:44 PM [facility] Calcium, Total,S 9.1 8.4 - 10.2 07/13/2020 [place] mg/dL 1:44 PM [facility] Fasting? Yes 07/13/2020 [place] 9:36 AM [facility] Specimen Anatomical Collection Method Collection Time Receive d Time (Source) Location / / Volume Laterality Blood 07/13/2020 9:36 AM CDT 12:58 PM CDT Freida Stanton MD LAB BLOOD ORDERABLES Performing Organization Address City/State/ZIP Code Phon e Number [facility] [address] [place] [address] (ABNORMAL) T4, free (07/13/2020 9:36 AM CDT) P athologist Signature Free T4 0.75 (L) 0.78 - 2.19 07/13/2020 [place] [facility] ng/dL 2:04 PM [facility] Comment: The results from this or any other diagn ostic test should be used and interpreted only in the context of the overall clinical picture. Heterophilic antibodies in serum or plas ma samples may cause interference in immunoassays. ??Exposure to animal antigens, either in the environment or as part of treatment or imaging procedures, may have circulating anti-an imal antibodies present. These antibodies may interfere with the assay reagents to produce unreliable results. ??Results which are inconsistent with clinical observations indicate the need for additional testing. Specimen Anatomical Collection Method Collection Time Receive d Time (Source) Location / / Volume Laterality Blood 07/13/2020 9:36 AM CDT 12:58 PM CDT Freida Stanton MD LAB BLOOD ORDERABLES Performing Organization Address City/[facility] e Number [facility] [address] [place] [address] TSH (07/13/2020 9:36 AM CDT) athologist Signature TSH, Sensitive 2.93 0.46 - 07/13/2020 [place] [facility] 4.68 mIU/L 2:04 PM CDT [facility] Comment: The results from this or any other diagn ostic test should be used and interpreted only in the context of the overall clinical picture. Biotin levels in serum remain elevated f or up to 24 hours after oral or intravenous biotin adminis tration and may interfere with this assay to produce unr eliable results. Heterophilic antibodies in serum or plas ma samples may cause interference in immunoassays. ??Exposure to animal antigens, either in the environment or as part of treatment or imaging procedures, may have circulating anti-an imal antibodies present. These antibodies may interfere with the assay reagents to produce unreliable results. ??Results which are inconsistent with clinical observations indicate the need for additional testing. Specimen Anatomical Collection Method Collection Time Receive d Time (Source) Location / / Volume Laterality Blood 07/13/2020 9:36 AM CDT 12:58 PM CDT Freida Stanton MD LAB BLOOD ORDERABLES Performing Organization Address [facility] e Number [facility] [address] [place] [address] CBC Branch Off w/Diff (07/13/2020 9:36 AM CDT) athologist Signature WBC 5.2 3.5 - 10.5 07/13/2020 [facility] [place] K/uL 9:54 AM CDT LAB RBC 4.30 3.90 - 07/13/2020 [facility] [place] 5.00 M/uL 9:54 AM CDT LAB Hemoglobin 13.6 12.0 - 07/13/2020 [facility] [place] 15.5 g/dL 9:54 AM CDT LAB Hematocrit 40.1 35.0 - 07/13/2020 [facility] [place] 44.0 % 9:54 AM CDT LAB Platelets 238 150 - 450 07/13/2020 [facility] [place] K/uL 9:54 AM CDT LAB MCV 93.3 81.6 - 07/13/2020 [facility] [place] 98.3 fL 9:54 AM CDT LAB MCH 31.6 26.0 - 07/13/2020 [facility] [place] 32.0 pg 9:54 AM CDT LAB MCHC 33.9 32.0 - 07/13/2020 [facility] [place] 36.0 g/dL 9:54 AM CDT LAB RDW 12.8 11.9 - 07/13/2020 [facility] [place] 15.5 % 9:54 AM CDT LAB Lymphocytes % 24.2 % 07/13/2020 [facility] [place] 9:54 AM CDT LAB Mid-size Cells 8.0 % 07/13/2020 [facility] [place] 9:54 AM CDT LAB Granulocytes/Dinesh 67.8 % 07/13/2020 [facility] [place] trophils 9:54 AM CDT LAB Lymphocytes 1.3 0.9 - 2.9 07/13/2020 [facility] [place] Absolute K/uL 9:54 AM CDT LAB MIDS Absolute 0.4 0.4 - 1.5 07/13/2020 [facility] [place] K/uL 9:54 AM CDT LAB Granulocytes/Dinesh 3.5 1.7 - 7.0 07/13/2020 [facility] [place] trophils K/uL 9:54 AM CDT LAB Absolute Specimen Anatomical Collection Method Collection Time Receive d Time (Source) Location / / Volume Laterality Blood 07/13/2020 9:36 AM 9:36 CDT AM CDT Freida Stanton MD LAB BLOOD ORDERABLES Performing Organization Address City/State/ZIP Code Phon e Number [facility] [address] [place] [address] [place] [address] documented in this encounter Visit Diagnoses Diagnosis Well adult exam - Primary Routine general medical examination at a health care facility Irregular periods Encounter for preconception consultation Snores Other dyspnea and respiratory abnormalit y documented in this encounter Care Teams Natural Sciences Manager Relationship Specialty Start Date End Date Freida Stanton MD PCP - General Family Medicine 02/08/19 documented as of this encounter
--- OUTSIDE RECORDS SUMMARY | 2022-01-15 14:57 | XMS_ITS | Encounter Summary ---
[...] Return to Office on or around Vanesa Victorino azar, ATTILA 01/31/2022 CNM, WILLIAM Lab None recorded. ? [...] Name Performed by ? ? Extraction of Louisa Tooth Information n ot available Vaccine List Notes: Declines flu and COVID-19 vacci ne Social History Tobacco Smoking Status Never Smoker Have you used any illegal drugs while N ? Do you have any transportation challenges? N Do you have difficulty walking or climbing N stairs? What type of diet are you following? REGULAR What is the highest grade or level of [id number] school you have completed or the highest [...] relationship? Do you feel stressed (tense, restless, [id number] nervous, or anxious, or unable to sleep at night)? Do you have difficulty dressing or bathing? N Family History Relation Problem Onset Age of Age Notes Sister Polycystic ovary syndrome (No Information) N/A (No Notes) Functional Status No Impairment. Past Encounters 11/02/2021 Routine Care Vanesa Hagan APRN CNM, WILLIAM: [address] [facility], [facility] [address], [place] [address], Ph. History of Present Illness Note: <div>Have [...]
--- OUTSIDE RECORDS SUMMARY | 2022-01-15 14:57 | XMS_ITS | Encounter Summary ---
:1985 Author Organization [facility] Address [address] [place] [address] Care Team Providers Name Role Phone Jayleen Wang FIRE EXTINGUISHER CHARGER, COFFEE TASTER Primary Care Provider Unavailable Reason for Visit Reason Comments Annual Exam Contraception pt stopped taking 8 weeks ag o Encounter Details Date Type Department Care Team Description 01/23/2018 Office Visit Ana Heath Estrada, Annual physical exam (Primar y Dx); [address] [facility] DNP, FIRE EXTINGUISHER CHARGER, COFFEE TASTER Screening for malignant neoplasm of cerv ix; [place] [address] Class 3 severe obesity without serious c omorbidity with body mass index (BMI) of 45.0 to 49.9 in adult, unspecified obesity type (HCC) [phone] [place] [address] Social History Tobacco Use Types Packs/Day Years [...] Sign Reading Time Taken Comments Blood Pressure 130/70 01/23/2018 8:23 AM CDT Pulse 72 01/23/2018 8:23 AM CDT Temperature 36.4 ??C (97.5 ??F) 01/23/2018 8:23 AM CDT Respiratory Rate 16 01/23/2018 8:23 AM CDT Oxygen Saturation 98% 01/23/2018 8:23 AM CDT Inhaled Oxygen Concentration - - Weight 111 kg (244 lb 0.8 oz) 01/23/2018 8:23 AM CDT Height 156.6 cm (5' 1.65) 01/23/2018 8:23 AM CDT Body Mass Index 45.14 01/23/2018 8:23 AM CDT documented in this encounter Patient Instructions Patient InstructionsHeath Hagan, MARIBEL, FIRE EXTINGUISHER CHARGER, COFFEE TASTER - 01/23/2018 8:20 AM CDT Images from the original note were not included. - Consider sleep apnea evaluation. Patient Education Sleep Apnea Sleep apnea is a condition in which breathing pauses or becomes shallow during sleep. Episodes of sleep apnea usually last 10 seconds or longer, and they may occur as many as 20 times an hour. Sleep apnea disrupts your sleep and keeps your body from getting the rest that it needs. This condition can increase your risk of certain health problems, including: ?? Heart attack. ?? Stroke. ?? Obesity. ?? Diabetes. ?? Heart failure. ?? Irregular heartbeat. There are three kinds of sleep apnea: ?? Obstructive sleep apnea. This kind is caused by a blocked or collapsed airway. ?? Central sleep apnea. This kind happens when the part of the brain that controls breathing does not send the correct signals to the muscles that control breathing. ?? Mixed sleep apnea. This is a combination of obstructive and central sleep apnea. What are the causes? The most common cause of this condition is a collapsed or blocked airway. An airway can collapse or become blocked if: ?? Your throat muscles are abnormally relaxed. ?? Your tongue and tonsils are larger than normal. ?? You are overweight. ?? Your airway is smaller than normal. What increases the risk? This condition is more likely to develop in people who: ?? Are overweight. ?? Smoke. ?? Have a smaller than normal airway. ?? Are elderly. ?? Are male. ?? Drink alcohol. ?? Take sedatives or tranquilizers. ?? Have a family history of sleep apnea. What are the signs or symptoms? Symptoms of this condition include: ?? Trouble staying asleep. ?? Daytime sleepiness and tiredness. ?? Irritability. ?? Loud snoring. ?? Morning headaches. ?? Trouble concentrating. ?? Forgetfulness. ?? Decreased interest in sex. ?? Unexplained sleepiness. ?? Mood swings. ?? Personality changes. ?? Feelings of depression. ?? Waking up often during the night to urinate. ?? Dry mouth. ?? Sore throat. How is this diagnosed? This condition may be diagnosed with: ?? A medical history. ?? A physical exam. ?? A series of tests that are done while you are sleeping (sleep study). These tests are usually done in a sleep lab, but they may also be done at home. How is this treated? Treatment for this condition aims to restore normal breathing and to ease symptoms during sleep. It may involve managing health issues that can affect breathing, such as high blood pressure or obesity.Treatment may include: ?? Sleeping on your side. ?? Using a decongestant if you have nasal congestion. ?? Avoiding the use of depressants, including alcohol, sedatives, and narcotics. ?? Losing weight if you are overweight. ?? Making changes to your diet. ?? Quitting smoking. ?? Using a device to open your airway while you sleep, such as: ? An oral appliance. This is a custom-made mouthpiece that shifts your lower jaw forward. ? A continuous positive airway pressure (CPAP) device. This device delivers oxygen to your airway through a mask. ? A nasal expiratory positive airway pressure (EPAP) device. This device has valves that you put into each nostril. ? A bi-level positive airway pressure (BPAP) device. This device delivers oxygen to your airway through a mask. ?? Surgery if other treatments do not work. During surgery, excess tissue is removed to create a wider airway. It is important to get treatment for sleep apnea. Without treatment, this condition can lead to: ?? High blood pressure. ?? Coronary artery disease. ?? (Men) An inability to achieve or maintain an erection (impotence). ?? Reduced thinking abilities. Follow these instructions at home: ?? Make any lifestyle changes that your health care provider recommends. ?? Eat a healthy, well-balanced diet. ?? Take [id number] and prescription medicines only as told by your health care provider. ?? Avoid using depressants, including alcohol, sedatives, and narcotics. ?? Take steps to lose weight if you are overweight. ?? If you were given a device to open your airway while you sleep, use it only as told by your health care provider. ?? Do not use any tobacco products, such as cigarettes, chewing tobacco, and e- cigarettes. If you need help quitting, ask your health care provider. ?? Keep all follow-up visits as told by your health care provider. This is important. Contact a health care provider if: ?? The device that you received to open your airway during sleep is uncomfortable or does not seem to be working. ?? Your symptoms do not improve. ?? Your symptoms get worse. Get help right away if: ?? You develop chest pain. ?? You develop shortness of breath. ?? You develop discomfort in your back, arms, or stomach. ?? You have trouble speaking. ?? You have weakness on one side of your body. ?? You have drooping in your face. These symptoms may represent a serious problem that is an emergency. Do not wait to see if the symptoms will go away. Get medical help right away. Call your local emergency services (911 in the [place] Do not drive yourself to the hospital. This information is not intended to replace advice given to you by your health care provider. Make sure you discuss any questions you have with your health care provider. Document Released: 03/28/2003 Document Revised: 12/01/2016 Document Reviewed: 01/15/2016 [employer] Patient Education ?? 2018 [employer] documented in this encounter Progress Notes Heath Hagan DNP, APRN, CNP - 01/23/2018 8:20 AM CDT Well Adult - Estab Subjective Patient ID: Massiel Stein is a 32 y.o. female. Chief Complaint Patient presents with ??? Annual Exam ??? Contraception pt stopped taking 8 weeks ago 32-year-old female comes into the clinic today for her annual exam. She notes that she does not haveany current concerns. She was taking control pills regularly, however stopped taking them about 8 weeks ago. She says that she feels better while she is not taking them. Her headaches have subsided and she has lost a small amount of weight. She feels that her mood is better. She says that her periods were not regular before she started the control pill. She has not had a period since she stopped taking it. She uses condoms for protection against , she does not believe she is . She does not have heavy periods or painful periods. She does have some underlying anxiety, however says this is manageable. She does have intermittent diarrhea and constipation and bloating. She is working with a chiropractor in [place] to address this. She also is getting nutritional advice from them. She says that she is trying to get back to exercising regularly again. She says she is now trying to exercise for 15 minutes 3 times per week. She does not smoke or use recreational drugs. She does drink alcohol about 15 servings per week. She says she does not get regular sleep. She snores loudly and wakes up frequently throughout the night. She thinks she has snorted herself awake once. She feels tired throughout the day. The following portions of the patient's chart were reviewed in this encounter and updated as appropriate: Tobacco Allergies Meds Med Hx Surg Hx Fam Hx Soc Hx Review of Systems Constitutional: Negative. HENT: Negative for ear pain. Eyes: Negative for pain and visual disturbance. Respiratory: Negative for cough, chest tightness and shortness of breath. Cardiovascular: Negative for chest pain, palpitations and leg swelling. Gastrointestinal: Negative for abdominal pain, blood in stool, constipation and diarrhea. Endocrine: Negative for cold intolerance, polydipsia and polyuria. Genitourinary: Negative for dysuria, pelvic pain, vaginal discharge and vaginal pain. Musculoskeletal: Negative for arthralgias and myalgias. Skin: Negative for rash. Intact, dry Neurological: Negative for seizures. Psychiatric/Behavioral: Negative for agitation and dysphoric mood. Objective Physical Exam Constitutional: She appears well-developed and well-nourished. HENT: Head: Normocephalic. Right Ear: External ear normal. Left Ear: External ear normal. Nose: Nose normal. Mouth/Throat: Oropharynx is clear and moist. Eyes: Conjunctivae are normal. Pupils are equal, round, and reactive to light. Neck: Normal range of motion. Neck supple. No thyromegaly present. Cardiovascular: Normal rate, regular rhythm and normal heart sounds. No murmur heard. Pulmonary/Chest: Effort normal and breath sounds normal. Abdominal: Soft. Bowel sounds are normal. She exhibits no mass. There is no tenderness. There is no rebound and no guarding. Genitourinary: Vagina normal and uterus normal. No vaginal discharge found. Genitourinary Comments: Cervix normal, no adnexa tenderness. No rashes or lesions present. Musculoskeletal: Normal range of motion. She exhibits no edema. Lymphadenopathy: She has no cervical adenopathy. Neurological: She is alert. No sensory deficit. Coordination normal. Skin: Skin is warm and dry. No rash noted. Psychiatric: She has a normal mood and affect. Her behavior is normal. Patient declined safety and health consultant for sensitive parts of exam. Assessment/Plan Diagnoses and all orders for this visit: Annual physical exam Screening for malignant neoplasm of cervix - Pap smear - HPV High Risk DNA Detection with Genotyping Class 3 severe obesity without serious comorbidity with body mass index (BMI) of 45.0 to 49.9 in adult, unspecified obesity type - Lipid panel, c14, and TSH drawn last year and were normal. -Patient does not want OCP refilled at this time. She will call when she wants it refilled. - Advised decreasing alcohol intake to 1 serving per day. She does not feel she has a dependency on alcohol currently. - She would like to continue nutrition counseling with her chiropractor. Advised her to call clinic if she would like a nutrition referral from [facility]. She is working on increasing her exercise. Advised 30 minutes per day at least 5 days per week. -Discussed symptoms of ESTEBAN with her and gave her a handout regarding this. Advised her that I would put a referral in to sleep medicine for further investigation of this, she will call if she is interested in this. -Follow up in 1 year, earlier if needed. Questions answered, patient verbalizes understanding and is in agreement with the plan of care. Heath Hagan DNP, ATTILA, KEISHA - 01/23/2018 8:20 AM CDT Hi Massiel, Your pap smear is normal. Your HPV test was negative. Your next pap smear should be in 5 years. documented in this encounter Plan of Treatment Not on filedocumented as of this encounter Procedures Procedure Name Priority Date/Time Associated Comments Diagnosis HPV HIGH RISK DNA Routine 01/23/2018 9:02 AM Screening for Res ults for this DETECTION WITH CDT malignant neoplasm procedu re are in GENOTYPING of cervix the results section. PAP TEST Routine 01/23/2018 9:02 AM Screening for Results for this CDT malignant neoplasm procedure are in of cervix the results section. documented in this encounter Results HPV High Risk DNA Detection with Genotyping (01/23/2018 9:02 AM CDT) [facility] gist Method Time Signature Source Endocervical 01/28/2018 [facility] 7:39 PM CDT LABORATORIES HPV Type 16 Negative Negative 01/28/2018 [facility] 7:39 PM CDT LABORATORIES HPV Type 18 Negative Negative 01/28/2018 [facility] 7:39 PM CDT LABORATORIES HPV non-Type Negative Negative 01/28/2018 [facility] 16 or 18 7:39 PM CDT LABORATORIES Comment: The following Other High Risk HPV types were not detected: 31, 33, 35, 39, 45, 51, 52, 56, 58, 59, 66, and 68 ADDITIONAL INFORMATIO N This test has been modified from the man nelsonr's instructions. Its performance characteri stics were determined by [facility] in a manner co nsistent with CLIA requirements. This test has not been tylor ared or approved by the U.S. Food and Drug Administration. Test Performed by: [facility] - [address] [address] Specimen (Source) Anatomical Collection Method Collection Time Re ceived Time Location / / Volume Laterality Pap collection 01/23/2018 9:02 01/23/2018 1:24 bottle AM CDT PM CDT Heath Estrada DNP, FIRE EXTINGUISHER CHARGER, COFFEE TASTER LAB CYTOLOGY ORDERABLES Performing Organization Address City/State/ZIP Code Phon e Number [facility] see result attachment for specific address (ABNORMAL) Pap smear (01/23/2018 9:02 AM CDT) Specimen Anatomical Collection Method Collection Time Receive d Time (Source) Location / / Volume Laterality Sure Path PAP, 01/23/2018 9:02 AM 018 1:40 screen (Cervix) CDT PM CDT Narrative [facility] - 01/19 1:32 PM CDT ? [facility] ? [address] ?[place] [address] ? Patient: ?MASSIEL STEIN ?Procedure: ? 01/23/2018 09:02 /Age/Sex: ??1985, 32 Y, F ? Received: ?01/23/2018 13:40 ?Accession #: ?? [id number] Billing: ?[id number] ?Patient Location: [id number] ?OFFICE Ordered by: ?? HEATH HAGAN, DNP, FIRE EXTINGUISHER CHARGER, COFFEE TASTER ?Attending: ? HEATH HAGAN, MARIBEL, ? KEISHA AIKEN ? SHOP HELPER CYTOLOGY FINAL REPORT SPECIMEN: (A) SURE PATH PAP, SCREEN SPECIMEN DESCRIPTION: Endocervical Received cloudy specimen in [facility] via l. CLINICAL INFORMATION: LMP: 11/07/2017 ?? Hormonal TX: Yes ?? P rev.normal: 2014 SPECIMEN ADEQUACY: Satisfactory for Evaluation. ??Endocervi gloria cells/transformation zone component present. GENERAL CATEGORIZATION: Negative for Intraepithelial Lesion or M alignancy INTERPRETATION/RESULTS: Reactive and reparative cellular changes . PAP Test Disclaimer Cervical cytology is a screening test pr imarily for squamous cancer and its precursors and has associated false-nega tive and false-positive results. Regular sampling and follow-up of unexplained cl inical signs and symptoms are recommended to minimize the impact of false negative and false positive results. Screened By: LAURYN YEH(ASCP) Signed By: DARERN SOLER MD <Sign Out Signature> Reported: ??01/29/2018 ? Page 1 of 1 Heath Estrada DNP, FIRE EXTINGUISHER CHARGER, COFFEE TASTER LAB CYTOLOGY ORDERABLES Performing Organization Address City/State/ZIP Code Phon e Number [facility] [address] [place] [address] documented in this encounter Visit Diagnoses Diagnosis Annual physical exam - Primary Routine general medical examination at a health care facility Screening for malignant neoplasm of cerv ix Screening for malignant neoplasm of the cervix Class 3 severe obesity without serious c omorbidity with body mass index (BMI) of 45.0 to 49.9 in adult, unspecified obesity ty pe (HCC) documented in this encounter Care Teams Cassandra Consultant Relationship Specialty Start Date End Date Jayleen Wang, ATTILA, COFFEE TASTER PCP - General 11/25/17 1 documented as of this encounter
--- OUTSIDE RECORDS SUMMARY | 2022-01-15 14:57 | XMS_ITS | Encounter Summary ---
:1985 Author Organization [facility] Address [address] [place] [address] Care Team Providers Name Role Phone None, Pcp Primary Care Provider Unavailable Reason for Visit Reason Onset Date Comments Med Refill 02/04/2018 Encounter Details Date Type Department Care Team Description 02/04/2018 Refill [facility] Internal Medicine Jayleen Wang, PRESSER MACHINE, PIPE FITTER MARINE [address] [place], [place] [phone] Social History Tobacco Use Types Packs/Day Years [...] this encounter Miscellaneous Notes Telephone Encounter - Lucero Mas LPN - 02/05/2018 10:48 AM CDT Pt called states she Is follows with [facility] and transferred to speak to them re med refillrequest. Pt reports has pap 01/23/18 By Emilee Cisneros Telephone Encounter - Jayleen Wang NP - 02/04/2018 4:50 PM CDT I don't see a pap smear on file. Also, if patient is not currently taking oral contraceptive, she will need a negative result to restart. Telephone Encounter - Brunilda Fabian LPN - 02/04/2018 3:33 PM CDT Marlissa (ethinyl estradiol-levonorgestrel) 30 mcg-0.15 mg tablet, oral, 1 tablet, Daily, 90 days Last Prescribed: 01/27/2017 Prescriber: Dwain Bowers Pharmacy: [facility] [place] Quantity: 3 packets Refills: 3 Instructions: patient is temporally not taking 01/16/18 Chronic: Y Last visit 11/27/16 No upcoming appts. Patient is due for f/u.Please advise on appt.and work with your staff . documented in this encounter Plan of Treatment Not on filedocumented as of this encounter Visit Diagnoses Not on filedocumented in this encounter Care Teams Raw Material Handler Relationship Specialty Start Date End Date None, Pcp PCP - General 06/20/[address] [place] [phone] documented as of this encounter
--- OUTSIDE RECORDS SUMMARY | 2022-01-15 14:57 | XMS_ITS | Encounter Summary ---
:1985 Author Organization [facility] Address [address] [place] [address] Care Team Providers Name Role Phone Jayleen Wang APRN, CNP Primary Care Provider Unavailable Reason for Visit Reason Onset Date Comments Med Refill 02/12/2018 Encounter Details Date Type Department Care Team Description 02/12/2018 Refill Dwain Lynn, Encounter for other [address] [facility] [place] [address] (Primary Dx) [phone] Social History Tobacco Use Types Packs/Day Years [...] as of this encounter Visit Diagnoses Diagnosis Encounter for other contraceptive manage ment - Primary documented in this encounter Care Teams Associate Professor Of Counseling Relationship Specialty Start Date End Date Jayleen Wang APRN, CNP PCP - General 11/25/17 1 documented as of this encounter
--- OUTSIDE RECORDS SUMMARY | 2022-01-15 14:57 | XMS_ITS | Encounter Summary ---
:1985 Author Organization [facility] Address [address] [place] [address] Care Team Providers Name Role Phone Freida Stanton MD Primary Care Provider Unavailable Encounter Details Date Type Department Care Team Description 02/11/2019 Abstract Freida Pierre MD [address] [place] [address] Social History Tobacco Use Types Packs/Day Years [...] encounter Procedures Procedure Name Priority Date/Time Associated Diagnosis Comme nts LIPID PANEL Routine 09/14/2018 Results for thi s procedure are i n the results section . BASIC METABOLIC PANEL Routine 09/14/2018 Result s for this procedure are i n the results section . HEMOGLOBIN A1C Routine 08/01/2018 Results for t his procedure are i n the results section . BASIC METABOLIC PANEL Routine 08/01/2018 Result s for this procedure are i n the results section . documented in this encounter Results Lipid panel (09/14/2018) Analysis Performed At Patho logist Time Signature Triglycerides 101 40 - 160 mg/dL Cholesterol 159 0 - 200 mg/dL HDL 61 35 - 70 mg/dL LDL Cholesterol 77 mg/dL (NMR) Specimen (Source) Anatomical Location Collection Method / Collectio n Time Received Time / Laterality Volume Blood (Blood, Venous) Historical Provider LAB BLOOD ORDERABLES (ABNORMAL) Basic metabolic panel (09/14/2018) [facility] Glucose 87 mg/dL Alkaline 49 U/L Phosphatase ALT (SGPT) 22 7 - 35 U/L AST 22 13 - 35 U/L BUN 16 4 - 21 mg/dL CREATININE IN 0.9 0.5 - 1.1 SER/PLAS mg/dL Total Bilirubin 0.4 0.1 - 1.4 mg/dL Total Protein 6.3 (A) 6.4 - 8.2 g/dL Albumin, Serum 4.3 3.5 - 5.0 g/dL Specimen (Source) Anatomical Location Collection Method / Collectio n Time Received Time / Laterality Volume Blood (Blood, Venous) Historical Provider LAB BLOOD ORDERABLES Hemoglobin A1c (08/01/2018) athologist Signature Hemoglobin A1C 4.9 4.0 - 6.0 % Specimen (Source) Anatomical Location Collection Method / Collectio n Time Received Time / Laterality Volume Blood (Blood, Venous) Historical Provider LAB BLOOD ORDERABLES (ABNORMAL) Basic metabolic panel (08/01/2018) athologist Signature Glucose 89 mg/dL Alkaline 55 U/L Phosphatase ALT (SGPT) 16 7 - 35 U/L AST 16 13 - 35 U/L BUN 12 4 - 21 mg/dL CO2 28 (A) 13 - 22 mmol/L CREATININE IN 0.9 0.5 - 1.1 SER/PLAS mg/dL Total Bilirubin 0.5 0.1 - 1.4 mg/dL Potassium 4.5 3.4 - 5.5 mmol/L Sodium 140 137 - 147 mmol/L Chloride 105 99 - 108 mmol/L Calcium, Total,S 9.6 8.7 - 10.7 mg/dL Total Protein 7.4 6.4 - 8.2 g/dL eGFR 87.0 60.0 mL/min/1.7 3m*2 Albumin, Serum 4.3 3.5 - 5.0 g/dL Specimen (Source) Anatomical Location Collection Method / Collectio n Time Received Time / Laterality Volume Blood (Blood, Venous) Historical Provider MD LAB BLOOD ORDERABLES documented in this encounter Visit Diagnoses Not on filedocumented in this encounter Care Teams Firing Pin Gauger Relationship Specialty Start Date End Date Freida Stanton MD PCP - General Family Medicine 02/08/19 documented as of this encounter
--- OUTSIDE RECORDS SUMMARY | 2022-01-15 14:57 | XMS_ITS | Encounter Summary ---
:1985 Author Organization [facility] Address [address] [place] [address] Care Team Providers Name Role Phone Freida Stanton MD Primary Care Provider Unavailable Encounter Details Date Type Department Care Team Description 07/13/2020 Lab [place] Irregular periods; [address] Encounter for preconception consultation BORIS Perez [id number] Social History Tobacco Use Types Packs/Day Years [...] Name Priority Date/Time Associated Diagnosis Comme nts GLOMERULAR FILTRATION Routine 07/13/2020 9:36 Irregular period s Results for this RATE AM CDT procedure are i n the results section. CBC BRANCH OFFICE Routine 07/13/2020 9:36 Irregular periods Re sults for this W/DIFF AM CDT procedure are i n the results section. TSH Routine 07/13/2020 9:36 Irregular period s Results for this AM CDT Encounter for procedure are in preconception the results consultation section. T4, FREE Routine 07/13/2020 9:36 Irregular periods Results for this AM CDT procedure are i n the results section. COMPREHENSIVE Routine 07/13/2020 9:36 Irregular periods Result s for this METABOLIC PANEL AM CDT procedure ar e in the results section. documented in this encounter Results Glomerular filtration rate (GFR) (07/13/2020 9:36 AM CDT) athologist Signature GFR >60 07/13/2020 [facility] 1:44 PM CDT [facility] >60 07/13/2020 [facility] Malaysian GFR 1:44 PM CDT [facility] Comment: GFR calculated from serum creatinine v alue Chronic Kidney Disease less than 60 mL/m in/1.73 m2 Kidney Failure less than 15 mL/min/1.73 m2 Note: effective 09/03/06 IDMS-Traceable MDRD Study Equation used. Specimen Anatomical Collection Method Collection Time Receive d Time (Source) Location / / Volume Laterality 07/13/2020 9:36 AM 9:36 CDT AM CDT Freida Stanton MD LAB BLOOD ORDERABLES Performing Organization Address City/State/ZIP Code Phon e Number [facility] [address] [place] [phone] CBC Branch Off w/Diff (07/13/2020 9:36 AM CDT) athologist Signature WBC 5.2 3.5 - 10.5 07/13/2020 [facility] [place] K/uL 9:54 AM CDT LAB RBC 4.30 3.90 - 07/13/2020 [facility] [place] 5.00 M/uL 9:54 AM CDT LAB Hemoglobin 13.6 12.0 - 07/13/2020 [facility] [place] 15.5 g/dL 9:54 AM CDT LAB Hematocrit 40.1 35.0 - 07/13/2020 [facility] [place] 44.0 % 9:54 AM CDT LAB Platelets 238 150 - 450 07/13/2020 [facility] [place] K/uL 9:54 AM CDT LAB MCV 93.3 81.6 - 07/13/2020 [facility] [place] 98.3 fL 9:54 AM CDT LAB MCH 31.6 26.0 - 07/13/2020 [facility] [place] 32.0 pg 9:54 AM CDT LAB MCHC 33.9 32.0 - 07/13/2020 [facility] [place] 36.0 g/dL 9:54 AM CDT LAB RDW 12.8 11.9 - 07/13/2020 [facility] [place] 15.5 % 9:54 AM CDT LAB Lymphocytes % 24.2 % 07/13/2020 [facility] 9:54 AM CDT LAB Mid-size Cells 8.0 % 07/13/2020 [facility] 9:54 AM CDT LAB Granulocytes/Dinesh 67.8 % 07/13/2020 [facility] O trophils 9:54 AM CDT LAB Lymphocytes 1.3 0.9 - 2.9 07/13/2020 [facility] Absolute K/uL 9:54 AM CDT LAB MIDS Absolute 0.4 0.4 - 1.5 07/13/2020 [facility] K/uL 9:54 AM CDT LAB Granulocytes/Dinesh 3.5 1.7 - 7.0 07/13/2020 [facility] O trophils K/uL 9:54 AM CDT LAB Absolute Specimen Anatomical Collection Method Collection Time Receive d Time (Source) Location / / Volume Laterality Blood 07/13/2020 9:36 AM 9:36 CDT AM CDT Freida Stanton MD LAB BLOOD ORDERABLES Performing Organization Address City/State/ZIP Code Phon e Number [facility] [address] [place] [address] [place] [address] TSH (07/13/2020 9:36 AM CDT) P athologist Signature TSH, Sensitive 2.93 0.46 - 07/13/2020 [facility] 4.68 mIU/L 2:04 PM CDT [...] MD LAB BLOOD ORDERABLES Performing Organization Address [facility] [address] [place] [phone] (ABNORMAL) T4, free (07/13/2020 9:36 AM CDT) athologist Signature Free T4 0.75 (L) 0.78 - 2.19 07/13/2020 [facility] ng/dL 2:04 PM CDT [facility] Comment: The [...] MD LAB BLOOD ORDERABLES Performing Organization Address [facility] [address] [place] [phone] Comprehensive metabolic panel (07/13/2020 9:36 AM CDT) athologist Signature Total Protein 6.8 6.3 - 8.2 07/13/2020 [facility] g/dL 1:44 PM CDT [facility] Albumin, Serum 4.0 3.5 - 5.0 07/13/2020 [facility] g/dL 1:44 PM CDT [facility] Total Bilirubin <0.7 0.1 - 1.0 07/13/2020 [place] mg/dL 1:44 PM [facility] AST 24 8 - 43 U/L 07/13/2020 [facility] 1:44 PM [facility] Alkaline 38 38 - 128 07/13/2020 [facility] Phosphatase U/L 1:44 PM [facility] ALT (SGPT) 27 0 - 34 U/L 07/13/2020 [facility] 1:44 PM [facility] Sodium 138 135 - 145 07/13/2020 [facility] mEq/L 1:44 PM [facility] Potassium 4.0 3.5 - 5.1 07/13/2020 [facility] mEq/L 1:44 PM [facility] Chloride 107 98 - 107 07/13/2020 [facility] mEq/L 1:44 PM [facility] CO2 27 22 - 29 07/13/2020 [place] mmol/L 1:44 PM [facility] BUN 14 5 - 25 07/13/2020 [place] mg/dL 1:44 PM [facility] Creatinine 0.7 0.4 - 1.2 07/13/2020 [place] mg/dL 1:44 PM [facility] Glucose 99 70 - 100 07/13/2020 [place] mg/dL 1:44 PM [facility] Calcium, Total,S 9.1 8.4 - 10.2 07/13/2020 [facility] mg/dL 1:44 PM [facility] Fasting? Yes 07/13/2020 [place] 9:36 AM [facility] Specimen Anatomical Collection Method Collection Time Receive d Time (Source) Location / / Volume Laterality Blood 07/13/2020 9:36 AM CDT 12:58 PM CDT Freida Stanton MD LAB BLOOD ORDERABLES Performing Organization Address City/State/ZIP Code Phon e Number [facility] [address] [place] [address] documented in this encounter Visit Diagnoses Diagnosis Irregular periods Encounter for preconception consultation documented in this encounter Care Teams Model Making Supervisor Relationship Specialty Start Date End Date Freida Stanton MD PCP - General Family Medicine 02/08/19 documented as of this encounter
--- OUTSIDE RECORDS SUMMARY | 2022-01-15 14:57 | XMS_ITS | Encounter Summary ---
:1985 Author Organization [facility] Address [address] [place] [address] Care Team Providers Name Role Phone Freida Stanton MD Primary Care Provider Unavailable Encounter Details Date Type Department Care Team Description 02/10/2019 Lab [place] Drug testing, pre-employment [address] [place] [address] Social History Tobacco Use Types Packs/Day Years [...] as of this encounter Visit Diagnoses Diagnosis Drug testing, pre-employment Health examination of defined subpopulat ion documented in this encounter Care Teams Email Administrator Relationship Specialty Start Date End Date Freida Stanton MD PCP - General Family Medicine 02/08/19 documented as of this encounter
--- NOTE | 2022-01-15 15:00 | CRLHL7_ITS ---
For Patients: As a result of the Century Cures Act, medical imaging exams and procedure reports are released immediately into your electronic medical record. You may view this report before your referring provider. If you have questions, please contact your health care provider. INDICATION: Post-dates TECHNIQUE: Real time milian scale imaging of the fetus was performed. COMPARISON: 08/20/2021 FINDINGS: Sonographic imaging demonstrates a single living intrauterine gestation. Fetus demonstrates a regular cardiac rate of 146 beats per minute. Fetus has a vertex position. The placenta lies posteriorly. Amniotic fluid volume appears normal and there is a single deepest pocket of 6.5 cm. The estimated weight is 4745gm. On the prior OB ultrasound dated 08/20/2021 the estimated weight was at the 39th percentile. The fetus was active and demonstrated normal breathing movements. There was normal flexion and extension of the trunk and extremities. IMPRESSION: Normal biophysical profile score 8/8. Sonographic gestational age 39 weeks 2 days. Estimated weight 4745 grams, 10 pound 7 ounces. Dictated by Dwain Morrissey MD @ 01/17/2022 1:04:29 PM (Electronically Signed)
== END 2022-01-15 14:56 | disposition home or self-care (01) ==
LOC: US 14:55
PROVIDERS: PCP Advanced Practice Midwife; Visit Provider Advanced Practice Midwife
DX: O48.0 Post-term pregnancy (principal); Z3A.41 41 weeks gestation of pregnancy
CPT/HCPCS: 76815; 76816; 76819

== ENCOUNTER 2022-01-17 12:15 | Inpatient (IN) | payer BC, SELFPAY ==
[2022-01-17] VITALS (16 sets, daily range): BP systolic 128–155; BP diastolic 65–91; PULSE 83–105; RESP 18; TEMP 36.8–37.1; O2SAT 96–98; BMI 55.9
[2022-01-17] MEDS: miSOPROStoL 25 MCG/0.25 TABLET VAGINAL ×3 (13:04→21:23)
--- NOTE | 2022-01-17 13:12 | W.PM.LDBA ---
Subjective History of Present Illness Date Seen: 01/17/22 Narrative: Patient is being admitted to Labor and Delivery for IOL for late term in the setting of elevated blood pressure in clinic today and large measuring fetus, >10lbs on ultrasound on 01/15/22. NST in clinic today was reassuring. She has been declining IOL but is agreeable today after discussion with Clem Willingham CNM. She is a 36 year old at weeks gestation. She prefers minimal intervention, desires unmedicated , and plans to have her boyfriend and client relationship executive present for labor support. Her full history and physical was dictated by Clem Willingham on 12/26/2021. She had an OB consult with a previous visit by Dr. Noland. Anesthesia consult was ordered but has not yet been completed. They have been notified of her arrival. Please see her H&P for details. OB PROBLEM LIST 1. AMA. Declined level II and genetic screening 2. BMI 45.5 Recommendations: Anesthesia referral: Early GCT: done at 16 weeks, 134 Weekly BPPs or NST starting 32 weeks, undecided Growth u/s between 32-36 weeks - ordered, declined OB consult on 01/10/2022 3. History of COVID infection during : level 2 ultrasound: Declines Growth ultrasound at 32: ordered Growth at 36 weeks 4. Recommended baby ASA @ 12 weeks d/t BMI, nulliparous, and AMA, declines, using natural supplement 5. PHQ: 16 ~ feels she is managing well right now; not interested in medication currently 6. H pylori infection diagnosed and treated by her homeopathy practitioner 7. Doing duel care with Dm Escalante at [facility] in [facility]. Will do every other visit here and plan to deliver with us. 8. Rubella non-immune. NEEDS: vaccine PP 9. Declines 28 week GCT, will test blood sugars the week prior, blood sugars all WNL except 1. 10. Needs follow up anatomy scan - rt arm and face views missing r/t position. Declines 11. 41.1 wk growth u/s EFW 10 lb 7 oz Ultrasound 01/15/2022: FINDINGS: Sonographic imaging demonstrates a single living intrauterine gestation.?Fetus demonstrates a regular cardiac rate of 146 beats per minute.? Fetus has a vertex position. The placenta lies posteriorly.? Amniotic fluid volume appears normal and there is a single deepest pocket of 6.5 cm.? The estimated weight is 4745gm. On the prior OB ultrasound dated 08/20/2021 the estimated weight was at the 39th percentile.? The fetus was active and demonstrated normal breathing movements.? There was normal flexion and extension of the trunk and extremities. IMPRESSION: Normal biophysical profile score 8/8. Sonographic gestational age 39 weeks 2 days. Estimated weight 4745 grams, 10 pound 7 ounces. OB - H&P: Exam Physical Exam: Vital signs: Pulse BP Pulse Ox 93 141/89 H 98 01/17/22 12:48 01/17/22 12:48 01/17/22 12:32 Constitutional: Constitutional: no acute distress Routine Neck Exam: Neck: Present full ROM Detailed Neck Exam: Thyroids: Comments: Supple Routine Respiratory Exam: Respiratory: Present CTA bilaterally Routine Cardiovascular Exam: Cardiovascular: RRR Detailed Labor and Delivery Exam: Patient Gravid: yes Dilation (cm): 1 (Per Clem Willingham CNM in clinic) Effacement (%): 30 Cervix position: mid Consistency: firm Tachysystole: No Contraction intensity: Mild Fetus (Single): Station: 0 Heart Rate Baseline: 135 Monitor Accelerations: Present Monitor Decelerations: None Vice President Of Customer Service Variability: Moderate (11-25) Routine Extremities Exam: Extremities: Present full ROM Routine Back/Spine/Pelvis Exam: Back/Spine: full ROM Routine Skin Exam: Present intact Routine Neurological Exam: Present alert, oriented X3, normal reflexes (Deep Tendon Reflexes +2) and normal speech; Absent clonus Routine Psychiatric Exam: Present normal affect and anxious OB - Problem Based A/P Additional Plan (1) Encounter for induction of labor: Status: Acute (2) Obesity, morbid, BMI 50 or higher: Status: Acute (3) Large for dates fetus affecting , antepartum: Status: Acute (4) Elevated blood pressure reading without diagnosis of hypertension: Status: Acute (5) AMA (advanced maternal age) primigravida 35+: Status: Acute (6) Rubella non-immune status, antepartum: Status: Acute Plan ASSESSMENT:? 36 at 41 3/7 weeks gestation? complicated by:? Labor type: Induced, Early labor? Category 1 FHR pattern.?? Labor complicated by: BMI >50, Elevated BP without diagnosis of hypertension, AMA, Large for gestational age fetus?(EFW by Ultrasound 01/15/22 10 lb 7oz.) GBS negative? ? PLAN:? 1. Routine intrapartum cares as ordered. Method of induction discussed with patient prior to admission at clinic visit with Clem Willingham CNM. Plan to start with vaginal cytotec, q 4 hours. Will administer per misoprosol protocol. Will recheck with any change in status. Patient not feeling contractions at this time. 2. Monitoring per policy, Intermittent?currently. She is aware that if she meets criteria for GHTN we would recommend continuous monitoring. 3. Planning unmedicated . Not a candidate for waterbirth. She is a candidate for analgesia of choice if desired.?? 4. Patient encouraged to reposition and ambulate to promote physiologic labor and .?Patient is very anxious but aware of her anxiety. She appreciates rationale and discussion when a change in plan occurs. 5. Anesthesia notified of patient arrival for consult. 6. Continue to monitor Blood pressures. Will draw labs based on elevation in clinic. If she has another blood pressure 4 hours from her initial clinic BP she would meet criteria for GHTN. Patient is aware and understands the risk. Questions and concerns answered. 7. Anticipate ? Delivery/Labor/Induction Plan Plan: induction Induction method: per misoprostol protocol
[2022-01-17 14:17] LABS: Basophils Absolute Auto 0.01 K/uL (0.00-0.30); Basophils Percent Auto 0.1 % (0.0-3.0); Eosinophils Absolute Auto 0.05 K/uL (0.00-0.50); Eosinophils Percent Auto 0.6 % (0.0-7.0); Hemoglobin* 12.2 gm/dL (12.0-16.0); Immature Granulocytes Abs Auto 0.06 K/uL (0.00-0.30); Lymphocytes Percent Auto 12.7 % (20-44); Mean Corpuscular HGB Conc 34 gm/dL (32-36); Mean Corpuscular Hemoglobin 30 pg (26-34); Mean Corpuscular Volume 90 fL (80-100); Monocytes Percent Auto 7.2 % (0.0-11.0); Neutrophils Percent Auto 78.7 % (42.0-72.0); Platelet Count* 208 K/uL (140-440); RDW Coefficient of Variation % 14.1 % (11.5-15.5); Red Blood Count 4.01 m/uL (4.00-5.20); White Blood Count* 8.64 K/uL (4.50-11.00)
[2022-01-17 14:21] LABS: Slide Review Reflex No
[2022-01-17 14:27] LABS: Alanine Aminotransferase* 22 U/L (4-35); Aspartate Amino Transferase* 31 U/L (12-35); Blood Urea Nitrogen* 9 mg/dL (5-24); Creatinine* 0.5 mg/dL (0.5-1.5); Estimated Glomerular Filt Rate 125 ml/min
[2022-01-17 14:56] LABS: Creatinine Urine 27.3 mg/dL; Total Protein Urine 12 mg/dL
[2022-01-17 15:36] LABS: SARS PCR* Negative SARS-CoV-2 (Negative)
--- NOTE | 2022-01-17 16:17 | P.ANPROEV_ITS ---
[facility] Medical History (Updated 01/17/22 @ 12:44 by Calista Van CNM) COVID-19 affecting , antepartum Helicobacter pylori (H. pylori) infection Surgical History (Updated 12/26/21 @ 16:19 by Michelle Willingham CNM) No history of previous surgery Social History (Updated 12/26/21 @ 16:21 by Mihcelle Willingham CNM) Are you following a diet prescribed by a doctor: No Are you following a special diet: No Smoking Status: Never smoker Meds Home Medications and Allergies Home Medications Medication Instructions Recorded Confirmed Type prenat.vits,gloria,[id number] 1 tab PO QDAY 10/24/21 01/17/22 History Allergies Allergy/AdvReac Type Severity Reaction Status Date / Time No Known Allergies Allergy Unknown Verified 01/17/22 10:32 Results Labs Labs: Short CBC 01/17/22 Range/Units 14:05 WBC 8.64 (4.50-11.00) K/uL Hgb 12.2 (12.0-16.0) gm/dL Hct 36.0 (33.0-51.0) % Plt Count 208 (140-440) K/uL BMP 01/17/22 14:05 BUN 9 Creatinine 0.5 Liver Function 01/17/22 Range/Units 14:05 AST 31 (12-35) U/L ALT 22 (4-35) U/L Anesthesia Risk Status Procedure Time Seen by Provider: 16:17 Date Seen: 01/17/22 History History of anesthesia reactions: No Family history of reaction to anesthesia: No Status Dentition: intact/complete Risk Assessed to be at risk for difficult intubation: Yes Assessment and Plan Assessment and plan (1) : Status: Acute (2) Obesity, morbid, BMI 50 or higher: Status: Acute Plan Saw patient on OB floor. She did not make it in for a visit during her . She is not wanting an epidural. Discussed size and the fact that this can increase difficulty of placement and time to place. spinous processes were palpable though are deep. Discussed general anesthesia and increased difficulty due to size as well
--- NOTE | 2022-01-17 18:23 | PM.OBPNL ---
Pain Control Time Seen by Provider: 17:00 Date Seen: 01/17/22 Comments: Rosie Waterman is coping well, she is not feeling much cramping or contractions at this time. She is currently being supported by boyfriend. She does have to have her tank wagon operator present when labor gets more intense. Understands the current plan of care. Questions answered to her satisfaction. Reports concerns regarding: the change in plan and anxiety of the unknown. She would like to continue with position changes for comfort and pain management.?? Contractions Monitor mode: External Contraction pattern: Irregular (Patient is unaware) Contraction intensity: Mild Fetus (Single) status: Category l Assessment and Plan Assessment: other (Early labor) Plan: continue present management Comments: ASSESSMENT:? 36 at 41 3/7 weeks gestation? complicated by:?BMI >50, Elevated BP without diagnosis of hypertension, AMA, Rubella non-immune Labor type: Induced, Early labor? Category 1 FHR pattern.?? Labor complicated by: BMI >50, Elevated BP without diagnosis of hypertension, AMA, Large for gestational age fetus?(EFW by Ultrasound 01/15/22 10 lb 7oz.) Pre-Eclampsia without Severe Features GBS negative? ? PLAN:? 1. Routine intrapartum cares as ordered. Continue with vaginal cytotec as planned. 2. Monitoring per policy, continuous with diagnosis of Pre-Eclampsia without severe features. 3. Planning unmedicated . Not a candidate for waterbirth. She is a candidate for analgesia of choice if desired.?? 4. Patient encouraged to reposition and ambulate to promote physiologic labor and .?Patient is very anxious but aware of her anxiety. She is going to try some aromatherapy. 5. Anesthesia consult completed. See their documentation for more information. 6. Continue to monitor Blood pressures. Labs WNL except p/c ratio of 0.40. Discussed findings with patient. Plan for labor does not change, this supports the decision for IOL and that it is time for her to have her baby. All questions answered. 7. Anticipate ? Labs Labs Laboratory Tests 01/17/22 01/17/22 01/17/22 Range/Units 14:26 14:20 14:05 WBC (4.50-11.00) K/uL RBC (4.00-5.20) m/uL Hgb (12.0-16.0) gm/dL Hct (33.0-51.0) % MCV (80-100) fL MCH (26-34) pg MCHC (32-36) gm/dL RDW Coeff of Lucy (11.5-15.5) % Plt Count (140-440) K/uL Neut % (Auto) (42.0-72.0) % Lymph % (Auto) (20-44) % Carlisle % (Auto) (0.0-11.0) % Eos % (Auto) (0.0-7.0) % Baso % (Auto) (0.0-3.0) % Neut # (Auto) (1.7-7.0) K/uL Lymph # (Auto) (0.90-2.90) K/uL Carlisle # (Auto) (0.00-0.90) K/UL Eos # (Auto) (0.00-0.50) K/uL Baso # (Auto) (0.00-0.30) K/uL Abs Immat Gran (auto) (0.00-0.30) K/uL BUN 9 (5-24) mg/dL Creatinine 0.5 (0.5-1.5) mg/dL Estimated GFR 125 ml/min AST 31 (12-35) U/L ALT 22 (4-35) U/L Urine Creatinine 27.3 mg/dL Protein/Creatinin Ratio 0.40 H (0-0.19) Urine Total Protein 12 mg/dL SARS-CoV-2 (PCR) Negative SARS-CoV-2 (Negative) 01/17/22 Range/Units 14:05 WBC 8.64 (4.50-11.00) K/uL RBC 4.01 (4.00-5.20) m/uL Hgb 12.2 (12.0-16.0) gm/dL Hct 36.0 (33.0-51.0) % MCV 90 (80-100) fL MCH 30 (26-34) pg MCHC 34 (32-36) gm/dL RDW Coeff of Lucy 14.1 (11.5-15.5) % Plt Count 208 (140-440) K/uL Neut % (Auto) 78.7 H (42.0-72.0) % Lymph % (Auto) 12.7 L (20-44) % Carlisle % (Auto) 7.2 (0.0-11.0) % Eos % (Auto) 0.6 (0.0-7.0) % Baso % (Auto) 0.1 (0.0-3.0) % Neut # (Auto) 6.80 (1.7-7.0) K/uL Lymph # (Auto) 1.10 (0.90-2.90) K/uL Carlisle # (Auto) 0.60 (0.00-0.90) K/UL Eos # (Auto) 0.05 (0.00-0.50) K/uL Baso # (Auto) 0.01 (0.00-0.30) K/uL Abs Immat Gran (auto) 0.06 (0.00-0.30) K/uL BUN (5-24) mg/dL Creatinine (0.5-1.5) mg/dL Estimated GFR ml/min AST (12-35) U/L ALT (4-35) U/L Urine Creatinine mg/dL Protein/Creatinin Ratio (0-0.19) Urine Total Protein mg/dL SARS-CoV-2 (PCR) (Negative)
[2022-01-18] VITALS (19 sets, daily range): BP systolic 128–164; BP diastolic 61–93; PULSE 80–97; RESP 18; TEMP 36.7–36.8; O2SAT 97–98
[2022-01-18] MEDS: miSOPROStoL 25 MCG/0.25 TABLET VAGINAL ×3 (01:18→22:30)
--- NOTE | 2022-01-18 08:48 | P.OBPN_ITS ---
Pain Control Time Seen by Provider: 08:48 Date Seen: 01/18/22 Pain control: tolerating well Comments: Intrapartum Progress Note? Labor and Delivery? ? Subjective: Rosie is coping well with IOL labor pain/contractions. Reports they feel a little crampy in her back. She is currently being supported by Seven. Discussed last dose of cytotec given at 5:35am, cervix soft but unchanged, can continue IOL with cervadil. Pt agreeable. Questions elicited and answered to he r satisfaction. She would like to get some sleep as she was not able to sleep well last night and says she does not do well with little sleep.?? Contractions Monitor mode: External Contraction pattern: Irregular (Patient is unaware) Contraction intensity: Mild Pelvic Exam Dilation (cm): fingertip Effacement (%): 0 Station: -3 Fetus (Single) status: Category l Assessment and Plan Assessment: induction ongoing Comments: ASSESSMENT:? 36 at 41 1/7 weeks gestation? complicated by:?Prepregancy BMI 45, [facility] Labor type: Induced for postdates, IOL ongoing Category 1 FHR pattern.?? GBS Negative ? ?? PLAN:? 1. Routine intrapartum cares as ordered. Continue with IOL management: Cervadil placement after ctytotec dose complete 2. Monitoring per policy, continuous? 3. Planning unmedicated . Candidate for analgesia of choice.?? 4. Patient encouraged to reposition and ambulate to promote physiologic labor and and comfort.? 6. Anticipate progress to active labor ?
[2022-01-18] MEDS: DINOPROSTONE 10 MG VAGINAL INSERT VAGINAL (09:40)
--- NOTE | 2022-01-18 22:28 | PM.OBPNL ---
Pain Control Time Seen by Provider: 22:28 Date Seen: 01/18/22 Pain control: tolerating well Comments: Intrapartum Progress Note? Labor and Delivery? ? Subjective: Rosie is coping well with IOL overall. She has not been feeling any contractions or having any discomfort. Cervidil was removed at 2245. SVE: 1cm, long and high, soft - minimal change from this morning. Discussed options to continue IOL with Pitocin and Cook catheter or higher dose Cytotec regimen. Pt declined Pitocin and Cook, and stated she was very nervous about higher doses of Cytotec with the increased risk for tachysystole. Discussed option to continue with Cytotec 25mcg q4 hours, which she said she was much more comfortable with. Talked at length about options, risks, benefits, and the need for labor to progress at this point. Pt wants to do 25mcg of cytotec q4 overnight, then reevaluate in the morning, stated she is open to the idea of Pitocin at that time if needed, but would prefer not to have it. Rosie expressed that she has been having a hard time accepting the idea of needing an induction, since she had really hoped for an unmedicated, low intervention labor and . She stated that she is frustrated with the IOL process, but she is finally wrapping her head around the idea of having a baby, and will start working on her mindset to encourage her body into labor now. Questions elicited and answered to her satisfaction. Encouraged balancing sleep with activity and position changes to promote labor and optimal position.?? Contractions Monitor mode: External Contraction pattern: Irregular (Patient is unaware) Contraction intensity: Mild Pelvic Exam Dilation (cm): 1 Effacement (%): 0 Station: -3 Fetus (Single) status: Category l Assessment and Plan Assessment: induction ongoing Comments: Cytotec 25mcg q4 hours overnight, reevaluate in the morning.
--- NOTE | 2022-01-18 22:55 | P.OBPN_ITS ---
Pain Control Time Seen by Provider: 15:30 Date Seen: 01/18/22 Pain control: tolerating well Comments: (Late Entry) Into room to check on pt progress, discuss current plan and possible next steps in IOL. Rosie resting comfortably in bed after having a good nap/rest and shower. Stated she was a little more crampy and feeling some contractions. Discussed possible options for IOL after Cervidil, including Pitocin/cook catheter, Pitocin alone if cervix is dilated more than 3cm, or possible need for more cervical ripening with additional doses of Cytotec. Agreed that we would make a plan later after SVE when Cervidil complete. Encouraged position changes, dancing, movement, and ambulation to help labor progress and optimal positioning. Pt agreeable to plan. Contractions Monitor mode: External Contraction pattern: Irregular (Patient is unaware) Contraction intensity: Mild Fetus (Single) status: Category l Assessment and Plan Assessment: induction ongoing Plan: continue present management Comments: ASSESSMENT:? 35 at 41 1/7 weeks gestation? complicated by:?Prepregnancy BMI 45, AMA, Pre-Eclampsia without severe features; Dual care with [facility] Labor type: Induced for postdates, Pre-Eclampsia, Large for Dates fetus; IOL ongoing Category 1 FHR pattern.?? GBS Negative ? ?? PLAN:? 1. Routine intrapartum cares as ordered. Continue with IOL management: Cervidil 2. Monitoring per policy, continuous? 3. Planning unmedicated . Candidate for analgesia of choice.?? 4. Patient encouraged to reposition and ambulate to for comfort and to promote physiologic labor and .? 6. Anticipate progress to active labor
--- NOTE | 2022-01-18 23:55 | PM.OBPNL ---
Pain Control Time Seen by Provider: 23:30 Date Seen: 01/18/22 Pain control: tolerating well Comments: Into room to assess pt - elevated FHR and contraction pattern Rosie in room bouncing on labor ball. Discussed need to get a better reading on baby and contractions. Pt agreeable to resting in bed to better monitor baby and contractions at this time. Once in bed, low fowlers, FHR returned to 155 baseline with accelerations and contraction pattern tracing more accurately. Pt reports feeling more cramping in lower abdomen now. Contractions Monitor mode: External Contraction pattern: Irregular (Difficult to monitor, pt reports feeling them more now though) Contraction intensity: Mild Fetus (Single) status: Category ll Assessment and Plan Assessment: induction ongoing Plan: continue present management Comments: ASSESSMENT:? 35 at 41 1/7 weeks gestation? complicated by:?Prepregnancy BMI 45, AMA, Pre-Eclampsia without severe features; Dual care with [facility] Labor type: Induced for postdates, Pre-Eclampsia, Large for Dates fetus; IOL ongoing Category 2 FHR pattern.?? GBS Negative ? ?? PLAN:? 1. Routine intrapartum cares as ordered. Continue with IOL management: Cytotec 25mcg q4 hours and reevaluate in the morning or as needed 2. Monitoring per policy, continuous? 3. Planning unmedicated . Candidate for analgesia of choice.?? 4. Patient encouraged to rest.? 6. Anticipate progress to active labor
[2022-01-19] VITALS (90 sets, daily range): BP systolic 80–177; BP diastolic 41–113; PULSE 74–109; RESP 16–20; TEMP 36.6–37.1; O2SAT 97–99
[2022-01-19] MEDS: miSOPROStoL 25 MCG/0.25 TABLET VAGINAL (03:01)
--- NOTE | 2022-01-19 06:59 | P.OBPN_ITS ---
Pain Control Time Seen by Provider: 06:30 Date Seen: 01/19/22 Pain control: tolerating well (Working with electronic die maker, counter pressure, massage, position changes) Comments: Into room to check progress and make a plan for the morning Rosie in bed, right lateral, with Fish Hatchery Laborer Millicent applying counter pressure to lower back. Support person Seven sleeping on couch. Cytotec 25mg x2, next dose due at 7am. Rosie reports she is feeling significant back pain with each contraction. SVE: 2/50/-3, more midline, bulging bag. Discussed findings with pt and electronic die maker, reassured that her cervix is definitely making change. Reviewed options to keep going with cytotec, switch to pitocin, or hold next dose to see if contractions just keep working. Pt prefers to hold next dose of cytotec and reevaluate plan when Michelle Willingham CNM is here later this morning. Pt stated she might be open to pain medication at some point if back labor persists like this. Encouraged position changes, forward leaning, massage, counter pressure, hydrotherapy for comfort measures and reassured pt that if she would like pain medication at any time we can discuss, but will leave it up to her to let us know if she would like to talk about it. Novii not picking up contractions consistently, RN readjusted and still not picking up better. Discussed possible need to switch to TOCO and EFM or telemetry until if we can not get Novii to warehouse order picker better. At 7:00 am changed to telemetry unit and now tracings more accurate. Contractions Monitor mode: External Contraction frequency: 3 (2-3) Contraction pattern: Irregular (Difficult to monitor, pt reports feeling them more now though) Contraction intensity: Moderate (per pt - mostly back labor) Pelvic Exam Dilation (cm): 2 Effacement (%): 50 Station: -3 Fetus (Single) status: Category l Comments: Baseline: 140 Accelerations: Present Decels: Absent Contractions: 2-3min Assessment and Plan Assessment: induction ongoing Plan: other (Hold next dose of cytotec ) Comments: ASSESSMENT:? 35 at 41 1/7 weeks gestation? complicated by:?Prepregnancy BMI 45, AMA, Pre-Eclampsia without severe features; Dual care with [facility] Labor type: Induced for postdates, Pre-Eclampsia, Large for Dates fetus; IOL ongoing Category 1 FHR pattern.?? GBS Negative ? ?? PLAN:? 1. Routine intrapartum cares as ordered. Continue with IOL management: Hold next dose of cytotec and reevaluate after 8am 2. Monitoring per policy, continuous?- switched to telemetry at 7am 3. Planning unmedicated . Candidate for analgesia of choice.?Encouraged pt to let us know if she would like to discuss options. 4. Patient encouraged to move and utilize shower, labor tools, massage and counter pressure for comfort and to encourage labor to progress. ? 6. Anticipate progress to active labor
--- NOTE | 2022-01-19 08:39 | P.OBPN_ITS ---
Pain Control Time Seen by Provider: 08:00 Date Seen: 01/19/22 Pain control: other (tolerating contractions fair. Pt is very tired but is changing positions and using back pressure for comfort) Contractions Monitor mode: External Contraction frequency: 3 (2-4) Contraction pattern: Regular Contraction intensity: Moderate (per pt - mostly back labor, some tolerable pain in the lower front) Fetus (Single) status: Category l Comments: Baseline 135, +accels. -decels, moderate variability Assessment and Plan Assessment: induction ongoing Plan: begin Pitocin augmentation Comments: Extensive discussion on options for continuing labor induction and the risks and benefits of each. Discussed options of additional cytotec doses, pitocin or AROM. Contractions are currently too close to safely given more cytotec. Per the pervious CNM assessment, baby may by too ballotable for AROM. Although pitocin is something that the patient wanted to avoid discussed that it may be her best option at this time. Offered no interventions but discouraged against this. Encouraged her to use the contractions she currently has and add pitocin to help augment them to progress labor. She is hesitant but doesn't want to do this all day so is agreeable to pitocin at this time. Will consider AROM later in the day if appropriate. Bedside ultrasound to confirm position showed baby vertex. The patients profile stitching machine operator and are at the bedside and supportive.
[2022-01-19] MEDS: LACTATED RINGERS 1000 ML 1,000 ML 123 ML IV (08:41)
[2022-01-19] MEDS: OXYTOCIN 30 unit/500 ML in NS 30 UNIT/500 ML BAG IVPB (08:56)
[2022-01-19] MEDS: LABETALOL HCL 5 MG/ML inj IVP ×2 (10:43→12:19)
--- NOTE | 2022-01-19 11:45 | PC.NURSE ---
Pt out of bed moving to wall for counter pressure
--- NOTE | 2022-01-19 11:46 | PC.NURSE ---
Pt out of bed walking to wall for counter pressure
--- NOTE | 2022-01-19 12:57 | PM.OBCN1 ---
OB - CN: HPI Date of Consult Time Seen by Provider: 12:58 Date Seen: 01/19/22 Patient: [facility] Patient Consult date: 01/19/22 Requesting Physician: Michelle Willingham CNM Primary Care Provider: Not a Local Provider Consult Narrative Narrative: HPI: Rosie is a 36 year old G 1 P 0 at 42 and 7/5 weeks gestation that was admitted to the [facility] on 01/17/22 for cervical ripening followed by induction of labor for mild preeclampsia. I was asked to see patient by Michelle Willingham CNM for a consultation as the patient now meets criteria for severe preeclampsia by blood pressure criteria. Rosie's has been complicated by elevated BMI 55.9, suspected macrosomia an ultrasound for estimated weight performed on 01/15/2022: Single, live, intrauterine gestation in vertex presentation. Amniotic fluid level is normal with single deepest pocket of 6.5 cm. Estimated weight was 4745 g = 10 lb 7 oz > 97%. and recent diagnosis of mild preeclampsia. The patient was desiring spontaneous onset of labor and no medications for analgesia during labor. Unfortunately, her has not been low risk. The patient was admitted on 01/17/2022 and has done 2 courses of vaginal Cytotec with Cervidil between. She was started on Pitocin this morning with the hope of artificial rupture of membranes when able. The patient received 1 dose of IV labetalol 20 mg at 10:43 a.m. after having a blood pressure of 177/99 at 10:37 a.m. and then received another IV labetalol 20 mg dose at 12:19 a.m. after a blood pressure of 164/96. After that 2nd labetalol dose the patient was started on magnesium for seizure prophylaxis with a 4 g load followed by 2 g magnesium sulfate per hour given IV. I also requested repeat serum preeclampsia labs as they have not been checked since her admission and she now has worsening blood pressure. I also ordered coagulation tests: INR, PTT and fibrinogen and requested 2 units of packed red blood cells crossed on hold for delivery as she has significant risk factors for hemorrhage. The most reason cervix check was performed by Michelle Willingham CNM at 12:45pm: 4.5cm/90%/-2 with a bulging bag. The patient gave verbal permission for Michelle to break her bag of water but she wanted to use the restroom 1st. The patient desires the nurse locomotive oiler to manage her labor and I will be managing her preeclampsia, possible shoulder dystocia, laceration repair if complicated and hemorrhage. I ordered serial serum preeclampsia labs every 6 hours now that she meets criteria for severe preeclampsia. She will likely need the antihypertensive medication orally after delivery. The patient had significant low back pain with contractions and is considering options for analgesia during labor. She denies headache, visual changes, mid epigastric/right lower quadrant pain, increased swelling. See the patient's Admission H&P from 01/17/2022 Preeclampsia labs: 01/17/22 at 14:05: hgb 12.2, plats 208, BUN 9, creatinine 0.5, AST 31, ALT 22. Urine P/C 0.40. Blood type A positive. A second set of serum preeclampsia labs is pending. I will not repeat urine testing as she has met criteria for proteinuria already. OB PROBLEM LIST 1.? AMA.? Declined level II and genetic screening 2.? BMI 45.5? Recommendations: ? Anesthesia referral: ? Early GCT: done at 16 weeks, 134 ? Weekly BPPs or NST starting 32 weeks, undecided ? Growth u/s between 32-36 weeks - ordered, declined OB consult on 01/10/2022 3.? History of COVID infection during : level 2 ultrasound:? Declines Growth ultrasound at 32: ordered Growth at 36 weeks 4.? Recommended baby ASA @ 12 weeks d/t? BMI, nulliparous, and AMA, declines, using natural supplement 5. PHQ: 16 ~ feels she is managing well right now; not interested in medication currently 6.? H pylori infection diagnosed and treated by her homeopathy practitioner 7.? Doing duel care with? - Ava at [facility] in [facility].? Will do every other visit here and plan to deliver with us.? 8.? Rubella non-immune.? NEEDS: vaccine PP 9.? Declines 28 week GCT, will test blood sugars the week prior,? blood sugars all WNL except 1. 10. Needs follow up anatomy scan - rt arm and face views missing r/t position.? Declines 11. 41.1 wk growth u/s EFW 10 lb 7 oz History History 1 Elective abortions Para 0 Spontaneous abortions Hx # Term Pregnancies Ectopic pregnancies Hx # Pregnancies Multiple births Number of Living Children 0 Labs OB Labs: Lab Assessment Start: 01/17/22 12:19 Freq: ONCE Status: Complete Protocol: PC.OBGBS Activity Type Activity Date Activity User E-sign Co-sign Detail Recorded Client Recorded Date Recorded By Document 01/17/22 12:50 MMB [id number] 01/17/22 12:55 MMB 01/17/22 12:50 Lab Assessment GBS Negative Does Patient Meet Criteria No Maternal Blood Type A Maternal RH Factor Positive Evaluate Maternal Rubella Immune Status Non-Immune Maternal HIV Status Negative Maternal Syphillis (RPR) Status Negative Are Labs Available Yes Lab Assessment Start: 01/17/22 18:13 Freq: Status: Complete Protocol: PC.OBGBS Activity Type Activity Date Activity User E-sign Co-sign Detail Recorded Client Recorded Date Recorded By Document 01/17/22 12:26 MMB [id number] 01/17/22 18:13 BKG DAEMON 01/17/22 12:26 Lab Assessment GBS Negative PFSH PFSH Medical History COVID-19 affecting , antepartum Helicobacter pylori (H. pylori) infection Surgical History No history of previous surgery Social History Are you following a diet prescribed by a doctor: No Are you following a special diet: No Smoking Status: Never smoker Meds Home Medications and Allergies Home Medications Medication Instructions Recorded Confirmed Type prenat.vits,gloria,[id number] 1 tab PO QDAY 10/24/21 01/17/22 History Allergies Allergy/AdvReac Type Severity Reaction Status Date / Time No Known Allergies Allergy Unknown Verified 01/17/22 10:32 OB - H&P: Exam Physical Exam: Vital signs: Temp Pulse Resp BP Pulse Ox 98.7 F 93 20 143/88 H 97 01/19/22 11:32 01/19/22 12:46 01/19/22 11:33 01/19/22 12:46 01/18/22 05:23 Narrative: General: Patient in pain with contractions. Vital signs: See heart rate monitor External monitor: Baseline 140s, sporadic variable and early decelerations, (+)accelerations. Reactive, category 2. Reassuring. [place]: Q2-3 minutes. SVE per OLIVIA Martinez: 4-5cm/90/-2. Meconium stained amniotic fluid (moderate). OB - CN: A/P Assessment and Plan (1) Encounter for induction of labor: Status: Acute Assessment and Plan: 1. Continue Pitocin per labor induction protocol. (2) Obesity, morbid, BMI 50 or higher: Status: Acute (3) Large for dates fetus affecting , antepartum: Status: Acute Assessment and Plan: 1. At risk for uterine atony and hemorrhage. Plan TXA IV in the 2nd stage 10-30 minutes prior to delivery. 2. Typed crossed the patient for 2u pRBC's on hold if needed for treatment of hemorrhage (4) AMA (advanced maternal age) primigravida 35+: Status: Acute (5) Rubella non-immune status, antepartum: Status: Acute (6) Pre-eclampsia: Problem details: Severe by BP criteria on 01/19/22 Status: Acute Assessment and Plan: 1. Magnesium sulfate 4gm IV, 2gm IV/hour for seizure prophylaxis. 2. Check serum preeclampsia labs Q6hr. 3. Serum preeclampsia labs, INR, PTT and fibrinogen now. 4. Following with the CNM's.
--- NOTE | 2022-01-19 13:22 | P.OBPN_ITS ---
Pain Control Date Seen: 01/19/22 Pain control: other (tolerating fair, support at bedside with SO and regulatory attorney, trying position changes) Contractions Monitor mode: External Contraction frequency: 3 (2-4) Contraction pattern: Regular Contraction intensity: Moderate (per pt - mostly back labor, some tolerable pain in the lower front) Pelvic Exam Dilation (cm): 4-5cm Effacement (%): 90 Station: -2 Comments: Had a bulging bag of water. AROM with verbal consent. Moderate amount of moderately stained meconium fluid. Fetus (Single) Amniotic Membrane Status: AROM status: Category l Assessment and Plan Pitocin rate (mU/min): 7 Assessment: induction ongoing Plan: other (AROM performed) Comments: Blood pressures increasing. Treated x2 at this point. Dr. Noland notified and participating in her care at this time. Plan for the OB to manage her Pre- eclampsia and to co-manage her labor. Magnesium started. Reviewed risks and benefits of AROM and pt agreeable to it at this time. Considering an epidural but declining at this time. Labs and type & screen ordered.
[2022-01-19 13:28] LABS: Hematocrit 34.5 % (33.0-51.0); Hemoglobin* 11.9 gm/dL (12.0-16.0); Mean Corpuscular HGB Conc 35 gm/dL (32-36); Mean Corpuscular Hemoglobin 31 pg (26-34); Mean Corpuscular Volume 89 fL (80-100); Platelet Count* 205 K/uL (140-440); Red Blood Count 3.87 m/uL (4.00-5.20); White Blood Count* 13.95 K/uL (4.50-11.00)
[2022-01-19 13:30] LABS: Slide Review Reflex No
[2022-01-19 13:41] LABS: Fibrinogen* 607 mg/dL (200-450); INR 0.94 (0.91-1.10)
[2022-01-19 13:42] LABS: Alanine Aminotransferase* 22 U/L (4-35); Aspartate Amino Transferase* 29 U/L (12-35); Blood Urea Nitrogen* 12 mg/dL (5-24); Creatinine* 0.5 mg/dL (0.5-1.5); Estimated Glomerular Filt Rate 125 ml/min
[2022-01-19] MEDS: ROPIVACAINE 0.2% 100 ml 100 ML 12 MG EPIDURAL (15:34)
[2022-01-19] MEDS: PHENYLEPHRINE 100 MCG/ML SYRINGE IVP ×4 (15:55→16:44)
[2022-01-19] MEDS: ePHEDrine sulfate 5 MG/ML inj 10 MG IVP ×3 (16:04→17:04)
[2022-01-19] MEDS: LACTATED RINGERS 1000 ML 1,000 ML 1017 ML IV (16:13)
--- NOTE | 2022-01-19 16:29 | P.ANBPRC_ITS ---
[facility] Medical History COVID-19 affecting , antepartum Helicobacter pylori (H. pylori) infection Surgical History No history of previous surgery Social History Are you following a diet prescribed by a doctor: No Are you following a special diet: No Smoking Status: Never smoker Meds Home Medications and Allergies Home Medications Medication Instructions Recorded Confirmed Type prenat.vits,gloria,[id number] 1 tab PO QDAY 10/24/21 01/17/22 History Allergies Allergy/AdvReac Type Severity Reaction Status Date / Time No Known Allergies Allergy Unknown Verified 01/17/22 10:32 Results Labs Labs: Laboratory Results - last 24 hr 01/17/22 01/19/22 01/19/22 14:05 13:18 13:18 WBC 13.95 H RBC 3.87 L Hgb 11.9 L Hct 34.5 MCV 89 MCH 31 MCHC 35 Plt Count 205 INR 0.94 Fibrinogen 607 H BUN Creatinine Estimated Creat Clear Estimated GFR AST ALT Blood Type A Positive Antibody Screen NEGATIVE Crossmatch (G) See Detail 01/19/22 13:18 WBC RBC Hgb Hct MCV MCH MCHC Plt Count INR Fibrinogen BUN 12 Creatinine 0.5 Estimated Creat Clear 118.50 Estimated GFR 125 AST 29 ALT 22 Blood Type Antibody Screen Crossmatch (AHG) Vital Signs Vital Signs: Last Vital Signs Temp 98.0 F 01/19/22 16:20 Pulse 83 01/19/22 16:28 Resp 20 01/19/22 11:33 BP 83/46 L 01/19/22 16:28 Pulse Ox 97 01/19/22 15:30 Weight: 136.441 kg Height: 156.21 cm Anesthesia Procedures Epidural Insertion Patient Location: OB Start Time: 15:30 Stop Time: 16:30 Start Date: 01/19/22 Stop Date: 01/19/22 Reason for Block: procedure for pain Patient Position: sitting Performed By: Jeremiah Spaulding Preanesthetic Checklist: IV checked, risks and benefits discussed, surgical consent, monitors and equipment checked, pre-op evaluation, timeout performed and anesthesia consent Prep: chlorhexidine gluconate Monitoring: blood pressure monitoring, continuous pulse oximetry and heart rate Approach: midline Vertebral Space: lumbar (1-5) Epidural Technique: FABY saline Needle Type: Tuohy needle Injection Technique: continuous catheter Needle gauge: 17 Needle Length (cm): 10 cm Needle Insertion Depth (cm): 9 Catheter Gauge: 19 Catheter Type: multi-orifice Catheter at skin depth (cm): 15 Test Dose Result: negative and lidocaine 1.5% with epinephrine 1 to 200,000
[2022-01-19] MEDS: LACTATED RINGERS 1000 ML 1,000 ML 507 ML IV (17:13)
--- NOTE | 2022-01-19 19:25 | PM.OBPNL ---
Pain Control Date Seen: 01/19/22 Pain control: tolerating well and epidural Contractions Monitor mode: External Contraction frequency: 3 (3-7) Contraction pattern: Irregular Contraction intensity: Moderate (per pt - mostly back labor, some tolerable pain in the lower front) Pelvic Exam Dilation (cm): 7 Effacement (%): 90 Station: -1 Fetus (Single) Amniotic Membrane Status: AROM status: Category ll Comments: Baseline 145, + accels, rare late decels noted, minimal to moderate variability. Thick meconium fluid present. Assessment and Plan Pitocin rate (mU/min): 7 Assessment: active labor and induction ongoing Plan: continue present management Comments: IUCP placed. Risks and benefits explained. Patient is agreeable to placement.
[2022-01-19 19:51] LABS: Hematocrit 31.8 % (33.0-51.0); Hemoglobin* 10.8 gm/dL (12.0-16.0); Mean Corpuscular HGB Conc 34 gm/dL (32-36); Mean Corpuscular Hemoglobin 31 pg (26-34); Mean Corpuscular Volume 90 fL (80-100); Platelet Count* 190 K/uL (140-440); Red Blood Count 3.54 m/uL (4.00-5.20); White Blood Count* 14.06 K/uL (4.50-11.00)
[2022-01-19 19:52] LABS: Slide Review Reflex No
[2022-01-19 20:08] LABS: Blood Urea Nitrogen* 13 mg/dL (5-24); Creatinine* 0.7 mg/dL (0.5-1.5); Est. Creatinine Clearance* 84.65; Estimated Glomerular Filt Rate 116 ml/min
[2022-01-19 20:10] LABS: Alanine Aminotransferase* 20 U/L (4-35); Aspartate Amino Transferase* 26 U/L (12-35)
[2022-01-19] MEDS: LACTATED RINGERS 1000 ML 1,000 ML 125 ML IV ×2 (21:18→22:31)
--- NOTE | 2022-01-19 21:27 | P.OBPN_ITS ---
Pain Control Time Seen by Provider: 21:00 Date Seen: 01/19/22 Comments: Subjective: The patient feels exhausted has sore muscles and is requesting a C- section for delivery because she states she is at the end of her rope. She has had no progression in cervical dilation since 2:00 p.m. this afternoon para Pitocin: 9 milliunits/minute. Vital signs: Per electronic medical record. FSE: Baseline 150s, no accelerations, sporadic late decelerations, minimal variability, nonreactive. Category 2. Capac: Contractions every 3-5 minutes. [place] units 63 in the last 10 minutes SVE: 6-7 cm/90 %/-1 to -2. Assessment: 36-year-old 1 para 0 at 41 weeks 5 days gestation unsuc cessful induction of labor, severe preeclampsia, maternal exhaustion, suspected macrosomia. Plan: 1. Pitocin stopped 2. Patient has an epidural for analgesia that is working well 3. Consent form reviewed and signed for primary low-transverse section. Contractions Monitor mode: Internal Contraction frequency: 5 (3-7) Contraction pattern: Irregular Contraction intensity: Mild (per pt - mostly back labor, some tolerable pain in the lower front) Fetus (Single) Amniotic Membrane Status: AROM status: Category ll
--- NOTE | 2022-01-19 21:36 | P.PCN_ITS ---
Procedure Note Time Seen by Provider: 21:36 Date Seen: 01/19/22 Date of procedure: 01/19/22 Will [facility] bill your pro fee for this procedure?: Yes Procedure: Preoperative diagnosis: 36-year-old 1 para 0 at 41 and 5/7 weeks * Severe preeclampsia * BMI 56 * Suspected macrosomia * Unsuccessful induction of labor * Thick meconium-stained amniotic fluid Postoperative diagnosis: Same Procedure: Primary low-transverse section Anesthesia: Epidural Surgeon: Micheline Noland MD Fermenting Cellar Dropper: Not applicable Quantitative blood loss: 1,036 mL IV Fluid: 1500 mL UOP: 650 mL Specimen: Placenta to pathology Drain(s): 1. Ascencio to gravity 2. Bakri to gravity. 300 mL in the balloon. Findings: A live female infant was delivered from the ROT position at 10:19 p.m. Apgars were 8 at 1 min and 8 at 5 min respectively. weight: 9 lb 11 oz. Nuchal cord(s): No. The placenta was delivered spontaneously and complete at 10:22 p.m.. Amniotic fluid: Thick meconium-stained. Normal uterus, fallopian tubes and ovaries were noted. Procedure: Rosie was taken to the OR where epidural anesthetic was found be adequate. A Ascencio catheter was placed. The patient was then placed in the dorsal supine position with a leftward tilt. She was then prepped and draped in a normal sterile manner. A Pfannenstiel skin incision was made and carried through sharply to the underlying layer of fascia. Fascia was incised in the midline and this incision carried laterally with Koo scissors. The superior aspect of fascial incision was grasped with Thalia clamps, tented up, and the rectus muscles dissected off with a combination of blunt and sharp dissection. The inferior aspect of the fascial incision was grasped with Thalia clamps, tented up and again the rectus muscles dissected off with a combination of blunt and sharp dissection. The rectus muscles were in the midline. The peritoneum was entered bluntly. This opening was extended bluntly. An Ru-O self-retaining retractor was placed. A bladder flap was not created. Uterus was incised in a low transverse manner in the midline. This incision carried laterally with blunt pressure on the inferior and superior aspects of the uterine incision. The amniotic sac was ruptured. The 's head and body was delivered atraumatically. The umbilical cord was clamped and cut 30-60 seconds after delivery. The infant was shown to the patient and her support person and then handed to waiting pediatric and nursing staff. The placenta was delivered spontaneously. The uterus was cleared of clots and debris. The uterine incision was re-approximated with the uterus in vivo. The 1st layer using 0-Vicryl in a running, locked manner. The 2nd layer using 0-Monocryl in a running, vertical, imbricating layer. Additional sutures needed for hemostasis: Yes: 6 figure of 8 sutures using 2-0 chromic to obtain hemostasis. Patience was then applied to the uterine incision Excellent hemostasis was verified. The Ru retractor was removed. The rectus muscles were not reapproximated. The rectus muscles were then closely inspected to verify hemostasis. Hemostasis was obtained with bipolar cautery. The fascia was then re-approximated using 0-Maxon loop in a running manner. The subcutaneous tissue was then irrigated with saline and hemostasis obtained with bipolar cautery. The subcutaneous tissue was re-approximated usi ng 3-0 plain gut interrupted sutures. The skin was reapproximated using 4-0 Monocryl in a running subcuticular manner. A silver-containing Methaplex dressing was applied. The patient tolerated this procedure well. Sponge, lap and instrument counts were correct x2 active to the procedure. Patient was taken to the recovery area in stable condition. The patient received 3g of IV Ancef prior to skin incision. 1gm TXA IV after cord clamp. 40 units Pitocin in 1 L IV fluid wide open after placental delivery. Bakri balloon placed w/ 300ml saline prior to uterine incision closure. Patient BP prior to leaving the OR: 167/90. Surgeon: Micheline Noland MD
[2022-01-19] MEDS: CEFAZOLIN 1 GM inj 3 GM IVP (21:54)
[2022-01-19] MEDS: KETOROLAC 30 MG/ML inj IVP (23:16)
--- NOTE | 2022-01-19 23:46 | W.PM.NB ---
Nerve Block Nerve Block Time Seen by Provider: 23:40 Date Seen: 01/19/22 Type of block requested by surgeon for post-operative analgesia: TAP Side: bilateral Time out performed: Yes Verification of patient name: Yes Verification of date of : Yes Site marking: site marked Name of person performing procedure: Jeremiah Spaulding Continuous monitoring Was continuous monitoring of O2 sat, B/P, residential monitor, recorded every 15 minutes?: Yes Procedure Checklist: sterile prep, needles and gloves Ultrasound guided. Images saved: Yes Medications given in 5ml increments after negative aspiration: Marcaine %: 0.25 mL: 30 Needle gauge: 20 and Exparel mL: 10 Needle gauge: 20 Patient tolerated procedure well: Yes Additional comments: Injected in 5ml increments after negative aspiration Block Charges Block Charge (with Pro Fee): TAP Bilateral Use of Ultrasound Machine for Block: Yes- US Guidance/pain block
--- NOTE | 2022-01-19 23:47 | W.ANESCHARGE ---
Anesthesia Charges Start Date/Time Anesthesia Start Date: 01/19/22 Anesthesia Start Time: 21:35 Stop Date/Time Anesthesia Stop Date: 01/19/22 Anesthesia Stop Time: 23:45 Summary Emergency: Yes
[2022-01-20] VITALS (28 sets, daily range): BP systolic 113–137; BP diastolic 73–84; PULSE 86–107; RESP 16–18; TEMP 36.8–37.2; O2SAT 95–98
[2022-01-20] MEDS: KETOROLAC 30 MG/ML inj IVP ×4 (04:06→22:10)
[2022-01-20] MEDS: LACTATED RINGERS 1000 ML 1,000 ML 75 ML IV ×2 (04:31→16:42)
--- NOTE | 2022-01-20 09:41 | PM.OBPNCS1 ---
OB - PN: A/P Assessment and Plan (1) Encounter for induction of labor: Status: Acute (2) Obesity, morbid, BMI 50 or higher: Status: Acute (3) Large for dates fetus affecting , antepartum: Status: Acute (4) AMA (advanced maternal age) primigravida 35+: Status: Acute (5) Rubella non-immune status, antepartum: Status: Acute (6) Pre-eclampsia: Problem details: Severe by BP criteria on 01/19/22 Status: Acute OB - PN: Subj Subjective Time Seen by Provider: 09:41 Date Seen: 01/20/22 Interval history: SUBJECTIVE The patient feels tired. The pain is well controlled with current medications. She has no new complaints. Ascencio in place. There is adequate urine output. The patient has a Ascencio catheter in place and has excellent urine output. She has a decreased appetite, is tolerating a regular diet, is passing flatus, and has not had a bowel movement. There is scanned amount of rubra lochia. She has not been ambulating as she is less than 12 hours postop and on magnesium sulfate until 10:20 p.m. today. Breast without difficulty. Iron supplementation: CBC without differential ordered stat this morning will await hemoglobin results. OBJECTIVE: Vital Signs: See EMR MOOD: appropriate CHEST: clear to auscultation HEART: regular rate and rhythm ABDOMEN: soft, non-tender the uterine fundus is at the level of the Umbilicus, Midline and is appropriate for the stage of recovery. INCISION: Silver-containing dressing in place and dry. EXTREMITIES:SCD's in place, 1-2+ BLE edema to the ankle. ASSESSMENT 36 year old who is: 1. Postoperative day # 1 2. Severe preeclampsia by blood pressure criteria on magnesium until 10:20 p.m. today. 3. Breast feeding PLAN 1. Continue routine postoperative cares. 2. Discontinue magnesium sulfate at 10:20 p.m. today 3. See if desires tomorrow. 4. A set of serum preeclampsia labs were ordered stat: CBC without diff, AST, ALT, BUN, creatinine. 5. Adequate urine output OB - PN: Obj Exam Physical Exam: Vital signs: Temp Pulse Resp BP Pulse Ox O2 Del Method 98.5 F 86 18 128/82 95 01/20/22 07:57 01/20/22 07:57 01/20/22 07:57 01/20/22 07:57 01/20/22 07:57 01/20/22 07:57 OB - PN: Obj Data Labs Labs: Laboratory Results - last 24 hr 01/17/22 01/19/22 01/19/22 14:05 13:18 13:18 WBC 13.95 H RBC 3.87 L Hgb 11.9 L Hct 34.5 MCV 89 MCH 31 MCHC 35 Plt Count 205 INR 0.94 Fibrinogen 607 H BUN Creatinine Estimated Creat Clear Estimated GFR AST ALT Blood Type A Positive Antibody Screen NEGATIVE Crossmatch ([facility]) See Detail 01/19/22 01/19/22 01/19/22 13:18 19:40 19:40 WBC 14.06 H RBC 3.54 L Hgb 10.8 L Hct 31.8 L MCV 90 MCH 31 MCHC 34 Plt Count 190 INR Fibrinogen BUN 12 13 Creatinine 0.5 0.7 Estimated Creat Clear 118.50 84.65 Estimated GFR 125 116 AST 29 26 ALT 22 20 Blood Type Antibody Screen Crossmatch ([facility])
[2022-01-20] MEDS: ENOXAPARIN 40 MG/0.4 ML INJ SUBCUT (09:50)
[2022-01-20 10:07] LABS: Hematocrit 30.1 % (33.0-51.0); Hemoglobin* 10.4 gm/dL (12.0-16.0); Mean Corpuscular HGB Conc 35 gm/dL (32-36); Mean Corpuscular Hemoglobin 31 pg (26-34); Mean Corpuscular Volume 90 fL (80-100); Platelet Count* 193 K/uL (140-440); Red Blood Count 3.35 m/uL (4.00-5.20); White Blood Count* 15.66 K/uL (4.50-11.00)
[2022-01-20 10:12] LABS: Alanine Aminotransferase* 17 U/L (4-35); Aspartate Amino Transferase* 31 U/L (12-35); Blood Urea Nitrogen* 13 mg/dL (5-24); Creatinine* 0.7 mg/dL (0.5-1.5); Est. Creatinine Clearance* 84.65; Estimated Glomerular Filt Rate 116 ml/min
[2022-01-20 10:19] LABS: Slide Review Reflex No
[2022-01-21 01:01] VITALS: BP 121/75; PULSE 89; RESP 17; TEMP 36.9; O2SAT 96
[2022-01-21] MEDS: IBUPROFEN 600 MG TABLET PO (02:53)
[2022-01-21 08:10] VITALS: BP 130/84; PULSE 98; RESP 16; TEMP 37.2; O2SAT 96
[2022-01-21] MEDS: ENOXAPARIN 40 MG/0.4 ML INJ SUBCUT (09:58)
[2022-01-21] MEDS: DOCUSATE SODIUM 100 MG CAPSULE PO (09:58)
--- NOTE | 2022-01-21 10:42 | P.OBPN_ITS ---
OB - PN: A/P Assessment and Plan (1) Encounter for induction of labor: Status: Resolved (2) Obesity, morbid, BMI 50 or higher: Status: Acute (3) Large for dates fetus affecting , antepartum: Status: Resolved (4) AMA (advanced maternal age) primigravida 35+: Status: Acute (5) Rubella non-immune status, antepartum: Status: Acute (6) Pre-eclampsia: Problem details: Severe by BP criteria on 01/19/22 Status: Acute OB - PN: Subj Subjective Time Seen by Provider: 10:42 Date Seen: 01/21/22 Interval history: SUBJECTIVE Rosie is overall feeling well. When I went to assess patient this morning, she was up walking around taking care of her infant. The pain is well controlled w ith current medications. She has no new complaints. Urinating without pena.. There is adequate urine output. She is tolerating a regular diet, is passing flatus, and has not had a bowel movement. There is scanted amount of rubra lochia. without difficulty. Her blood pressures are within normal limits. She denies headaches, vision changes, shortness of breath, right upper quadrant pain rapidly increasing edema. She is status post 24 hours of magnesium sulfate for seizure prophylaxis due to severe preeclampsia. She tolerated the magnesium sulfate well. She does not feel ready to go home just yet. She states that she has help at home. We discussed that she will need a 1 week follow-up to check her blood pressures and to remove her dressing. She has a blood pressure cuff at home. We reviewed concerning PreE a symptoms that she needs to call the clinic for. Her labs are at baseline. Goal range blood pressure for her is below 140 systolic over 90 diastolic. OBJECTIVE: Vital Signs: See EMR MOOD: appropriate CHEST: clear to auscultation HEART: regular rate and rhythm ABDOMEN: soft, non-tender the uterine fundus is at the level of the Umbilicus, Midline and is appropriate for the stage of recovery. INCISION: Silver-containing dressing in place and dry. Minimal tenderness. EXTREMITIES: 1-2+ BLE edema to the ankle. ASSESSMENT 36 year old who is: 1. Postoperative day # 2 2. Severe preeclampsia by blood pressure criteria s/p . 3. Breast feeding PLAN 1. Continue routine postoperative cares. 2. Blood pressure monitor. 3. See 4. A set of serum preeclampsia labs were ordered stat: Overall within normal limits. 5. Adequate urine output 6. Continue Ppx Lovenox while inpatient. Dispo: Admitted for IOL, POD#2 from LTCS due to failed induction. Patient has met all postoperative milestones. She will need a follow up in 1 week for incision check and BP check. Anticipate discharge tomorrow as baby needs to stay one more night. OB - PN: Obj Exam Physical Exam: Vital signs: Temp Pulse Resp BP Pulse Ox O2 Del Method 99 F 98 16 130/84 96 01/21/22 08:10 01/21/22 08:10 01/21/22 08:10 01/21/22 08:10 01/21/22 08:10 01/21/22 08:10
[2022-01-21 12:00] VITALS: BP 136/85; TEMP 37.1; O2SAT 97
[2022-01-21 15:58] VITALS: BP 129/82; PULSE 99; RESP 16; TEMP 37.3; O2SAT 96
[2022-01-21 19:54] VITALS: BP 145/88; PULSE 102; RESP 16; TEMP 37; O2SAT 96
[2022-01-22 01:45] VITALS: BP 156/91; PULSE 91; RESP 18; O2SAT 97
[2022-01-22] MEDS: LABETALOL HCL 100 MG TABLET 200 MG PO (02:03)
[2022-01-22 04:34] VITALS: BP 145/86; PULSE 87; RESP 16
--- NOTE | 2022-01-22 08:40 | P.DS_ITS ---
DS: Providers Provider Date Seen: 01/22/22 Date of admission: 01/17/22 12:15 Primary care physician: Not a Local Provider Admitting Clinician: Calista Van CNM Attending Physician on discharge: Calista Van CNM DS: Diagnosis Discharge Diagnosis (1) Status post primary low transverse section: Status: Acute Problem details: Unsuccessful induction of labor, female, 9 lb 11 oz, thick meconium-stained fluid Annie (2) Pre-eclampsia: Status: Acute Problem details: Severe by BP criteria on 01/19/22 DS: Medications Discharge Medications Other Medication Instructions: Labetalol 200mg twice a day. Continue to monitor blood pressures daily Exam Narrative: Exam Narrative: Chest: CTA X2, RRR ABD: Non tender Incision: healing well, no surrounding erythema, induration or abnormal discharge Pelvic: Normal lochia Const: Vital Signs, click to edit/add: Vital Signs - 24 hr 01/21/22 12:00 01/21/22 15:58 01/21/22 19:54 Temperature 98.8 F 99.2 F 98.6 F Pulse Rate [Pulse Oximeter] 99 102 H Respiratory Rate 16 16 Blood Pressure [Ri ght Arm] 136/85 129/82 145/88 H Pulse Oximetry 97 96 96 Oxygen Delivery Me thod Room Air Room Air Room Air 01/22/22 01:45 01/22/22 04:34 Temperature Pulse Rate [Pulse Oximeter] 91 87 Respiratory Rate 18 16 Blood Pressure [Ri ght Arm] 156/91 H 145/86 H Pulse Oximetry 97 Oxygen Delivery Me thod Room Air Common normals: no apparent distress General appearance: cooperative and comfortable OB - DS: Summary Hospital Course Hospital Course: The patient is a 36 year old G 1 P 1001 at 41 6/7 weeks gestation that was admitted to the Center on 01/17/22 for IOL due to post term dates. She had an uncomplicated delivery. She delivered a viable female . She is breast feeding. the patient has done well. Intrapartum diagnosis of preeclampsia with severe features, s/p magnesium sulfate infusion intrapartum a nd x 24 hours for seizure prophylaxis. blood pressures have been labile, instructed to continue to monitor daily and continue to take labetalol 200mg twice a day. Has a scheduled follow up appointment in clinic Friday01/25/22. Peripartum Data Procedures: Procedures Operation Date: 01/19/22 21:45 Actual Procedure Side Surgeon p Section Not Applicable Micheline Noland MD Infant Gender: Female Status at Discharge Functional status at discharge: independent ambulation Overall status at discharge: patient is progressing back to baseline Time Spent with Patient Time attestation: Total time spent providing and/or coordinating discharge services: Time spent: Less than 30 minutes Discharge Plan Discharge Disposition: Home, Self-Care Date of Admission: 01/17/22 12:15 Attending Provider on Discharge: Zehra Marley Primary Care Provider: Provider,Not a Local Condition: Stable Anticipated Discharge Date/Time: 01/22/22 12:30 Discharge Medications: New docusate sodium 100 mg Capsule 100 mg PO BID PRN (Reason: constipation) 60 Days Qty: 120 0RF ibuprofen 600 mg Tablet 600 mg PO Q6H PRN (Reason: Pain) 14 Days Qty: 30 0RF oxycodone 5 mg Tablet 5 mg PO 3XD PRN (Reason: Pain) 7 Days Qty: 21 0RF labetalol 100 mg Tablet 200 mg PO BID Qty: 30 0RF Lanolin (HPA) 100 % Cream 1 applic topical Q1H PRNQty: 1 0RF Continued prenat.vits,gloria,neu-ebko-fsxfy Tablet 1 tab PO QDAY Discharge Orders: Discharge Order (Routine); Ordered 01/22/22 Ordered By: Zehra Marley Patient Education: Preeclampsia and Eclampsia After Delivery (GEN), OB Over the Counter Medication Information, OB /Breast Feeding Activity Restrictions/Additional Instructions: Activity restrictions: * Nothing vaginally for 6 weeks: No tampons or intercourse * No driving while taking narcotic pain medications: 1-2 weeks. * No high impact, strenuous or core exercises for 6 weeks. * Lifting restriction: Maximum of 20 lb for 6 weeks. * Off of work for a minimum of 8 weeks for postop recovery. Discharge instructions were reviewed with the patient including signs and symptoms of infection and medications to use for pain. She will follow up in 6 weeks for a visit, sooner as needed. Symptoms to report to doctor: Drainage or increase in redness around your incision Bleeding that saturates more than one pad per hour Passing clots larger than the size of a golf ball Pain not relieved by prescribed medication Fever above 100.4 degrees Fahrenheit Foul vaginal odor Difficulty in emotions, mood and functions Thoughts of hurting yourself and/or Painful, reddened areas in your breast Any drainage, redness or tenderness in your IV/spinal site Severe headache that doesn't improve after taking medications Changes in vision, including temporary loss of vision, blurred vision, and/or light sensitivity Upper abdominal pain (usually under ribs on the right side) Decrease in urination or painful, frequent urinating Chest pain Shortness of breath Tenderness or pain with redness and/swelling in the calf(s) of your leg Nothing per Vagina: No intercourse, No tampons, No douching, For [address]: While taking narcotic pain medication. Lifting Restriction: 20 lbs Lifting Restriction Duration: 6 weeks Off Work or School: 8 weeks Follow Up Plan Surgeon Micheline Noland MD on Friday01/25/2022 for dressing removal, incision check ad BP check. A nurse motor bus driver, PA or CASER UP for the following: Initial visit: 2 weeks (Optional) = review control options, screening anxiety/depression, discuss infant care/feeding concerns. Follow up visit: 6 weeks for physical exam. Referrals Consultation: consultation services are available to all mothers and babies for the first year after delivery. To make an appointment, please call [phone]. Discharge Diet: Regular Follow Up Appointments: [facility] [Provider Group] Provider,Not a Local [Primary Care Provider] - Forms: My eStore App Info Instructions
[2022-01-22 11:53] VITALS: BP 140/90; PULSE 87; RESP 16; TEMP 36.7
== END 2022-01-22 11:45 | disposition home or self-care (01) | DRG 540 ==
PROVIDERS: Obstetrics & Gynecology; Admitting Provider Advanced Practice Midwife; Visit Provider Advanced Practice Midwife
PROC: 10D00Z1 Extraction of Products of Conception, Low, Open Approach (ICD-10-PCS; CPT 59514; principal; 2022-01-19 21:30)
DX: O48.0 Post-term pregnancy (principal); O14.14 Severe pre-eclampsia complicating childbirth; O75.81 Maternal exhaustion complicating labor and delivery; O77.0 Labor and delivery complicated by meconium in amniotic fluid; O36.63X0 Maternal care for excessive fetal growth, third trimester, not applicable or unspecified; O61.0 Failed medical induction of labor; O61.1 Failed instrumental induction of labor; O99.214 Obesity complicating childbirth; E66.01 Morbid (severe) obesity due to excess calories; Z86.16 Personal history of COVID-19; Z3A.41 41 weeks gestation of pregnancy; Z37.0 Single live birth
CPT/HCPCS: 01967; 01968; 36415; 59200; 64488; 76816; 76819; 76942; 82565; 82570; 84156; 84450; 84460; 84520; 85025; 85027; 85384; 85610; 86850; 86900; 86901; 86922; 87635; 88307; 99140; A9270; C9290; J0690; J1650; J1885; J2274; J2370; J2405; J2590; J2795; J3010; J3475; J3490; J7120; S0020

== ENCOUNTER 2023-07-24 08:42 | Outpatient (CLI) | payer BC, SELFPAY ==
--- NOTE | 2023-07-24 08:45 | US_ITS ---
Patient: MASSIEL ARCHIBALD Facility:?[facility] Patient ID:?[id number] Site Patient ID:?[id number]. Site :?[id number] Study:?US-OB Pelvis TV OB<14wks-07/24/2023 9:55:52 AM Ordering Physician:Irena Rosenthal Final Report: INDICATION: First trimester scan, establish dates. COMPARISON: None. TECHNIQUE: Real-time milian-scale imaging of the pelvis was performed. FINDINGS: Sonographic imaging demonstrates a single living intrauterine gestation. The embryo demonstrates a regular cardiac rate measuring 157 beats per minute. The embryo`s crown-rump length measurement of 1.9 cm corresponds to a gestational age of 8 weeks 3 days with a sonographic due date of 03/01/2024. There is a normal-appearing yolk sac. There are no gross abnormalities noted within the embryo at this early state of development. The gestational sac has a normal appearance. There is no evidence of a perigestational hemorrhage. The amount of fluid within the sac appears appropriate for gestational age. The cervix is closed. The myometrium appears normal. The right ovary is normal. Nonvisualization of the left ovary. There are no suspicious fluid collections noted in the cul-de-sac. IMPRESSION: Gestational age calculated at 8 weeks 3 days with a sonographic due date of 03/01/2024. Dictated by Dwain Morrissey MD @ 07/24/2023 10:17:40 AM Signed by:?Dwain Morrissey MD @07/24/2023 10:17:40 AM (Electronic Signature)
== END 2023-07-24 08:43 | disposition home or self-care (01) ==
LOC: US 08:43
PROVIDERS: Visit Provider Advanced Practice Midwife
DX: Z34.91 Encounter for supervision of normal pregnancy, unspecified, first trimester (principal); Z3A.08 8 weeks gestation of pregnancy
CPT/HCPCS: 76817; 86592; 86703; 86704; 86706; 86762; 86787; 86803; 86850; 86900; 86901; 87086; 87340

== ENCOUNTER 2023-10-14 10:04 | Outpatient (CLI) | payer BC, SELFPAY | END 2023-10-14 10:05 | disposition home or self-care (01) | LOC: NFLDREF 10-17 07:04 | PROVIDERS: Visit Provider Advanced Practice Midwife | DX: O09.522 Supervision of elderly multigravida, second trimester (principal); O99.212 Obesity complicating pregnancy, second trimester; Z3A.19 19 weeks gestation of pregnancy | CPT/HCPCS: 76805; 82565; 82570; 84156; 84443; 84450; 84460 ==

== ENCOUNTER 2023-10-28 12:31 | Outpatient (CLI) | payer BC, SELFPAY ==
--- OUTSIDE RECORDS SUMMARY | 2023-10-29 07:25 | XMS_ITS | Encounter Summary ---
Author Organization [facility] Address [address] [place] [address] Care Team Providers Care Receiving Inspector Name Role Phone Sh Non-Fv Uc Provider, Radiology Primary Care Pr ovider Unavailable Encounter Details Date Type Department Care Team (Latest Contact Info) Description 10/28/2023 Travel Social History Tobacco Use Types Packs/Day Years Used Date Smoking Tobacco: Never Assessed Estimated Date of Delivery Comme nts Yes 03/03/2024 Based on last me nstrual period of 05/28/2023 Sex and Gender Information Value Date Recorded Sex Assigned at Not on file Gender Identity Not on file Sexual Orientation Not on file documented as of this encounter Plan of Treatment Not on file documented as of this encounter Visit Diagnoses Not on filedocumented in this encounter Care Teams Receiving Inspector Relationship Specialty Start Date End Date Sh Non-Fv Uc Provider, Radiology PCP - General 10/24/23 documented as of this encounter
--- OUTSIDE RECORDS SUMMARY | 2023-10-29 07:25 | XMS_ITS | Encounter Summary ---
Author Organization [place] Address [address] [place] [address] Care Team Providers Care Roustabout Name Role Phone Sh Non-Fv Uc Provider, Radiology Primary Care Pr ovider Unavailable Reason for Visit * Reason Comments Ultrasound L2-AMA, BMI, incompl ete heart views Encounter Details Date Type Department Care Team (Late st Contact Info) Description 10/27/2023 PRE VISIT [facility] [place] [address] [place] [address] Roshni Saucedo, DANNA Ultrasound (L2-AMA, BMI, incomplete heart views) Social History Tobacco Use Types Packs/Day Years [...] on filedocumented in this encounter Care Teams Roustabout Relationship Specialty Start Date End Date Non-Fv Uc Provider, Radiology PCP - General 10/24/23 documented as of this encounter
--- OUTSIDE RECORDS SUMMARY | 2023-10-29 07:25 | XMS_ITS | Encounter Summary ---
Author Organization [place] Address [address] [place] [address] Care Team Providers Care Feedmobile Driver Name Role Phone Sh Non-Fv Uc Provider, Radiology Primary Care Pr ovider Unavailable Reason for Referral * Consultation (Routine: Next available opening) - Pending Review Specialty Diagnoses / Procedures Referred By Contac t Referred To Contact Diagnoses related condition, antepartum Calista Van APRN [facility] [address] [place] [address] [facility] [address] [place] [address] Referral ID Status Reason Start Date Expiration Date V isits Requested Visits Authorized [id number] Pending Review 10/24/2023 10/23/2024 1 1 Question Answer Preferred Location: [facility] [place] CHRISTA 03/03/2024 Ultrasound Comprehensive US (>than 18 weeks GA) US PROC NONE MFM Issue Advanced Maternal Age *MUST request Genetic Counseling - BMI, encounter for screening follow-up, unable to visualize the heart views MFM MD Consultation (unrelated to Ultrasound findings): No Inflammatory Bowel Disease Clinic: Joint MFM and GI Consultation: No Chronic Kidney Disease: Joint MFM and Nephrology Consultation No Genetic Counseling Consultation: No fax [facility] Comments There is no height or weight on file to calculate BMI. >> Patient may proceed with recommendations for further testing as directed by the Maternal Medicine Specialist >> >> If requesting Echo: MFM will determine appropriate location for exam due to indication. Please be aware that coverage of these services is subject to the terms and limitations of your health insurance plan. Call member services at your health plan with any benefit or coverage questions. Encounter Details Date Type Department Care Team (Latest Contact Info) Description 10/24/2023 Transcribe Orders [facility] [place] [address] [place] [id number] Calista Van APRN CNM [facility] [address] [place] [address] related condition, antepartum (Primary Dx) Social History Tobacco Use Types Packs/Day Years Used Date Smoking Tobacco: Never Assessed Sex and Gender Information Value Date Recorded Sex Assigned at Not on file Gender Identity Not on file Sexual Orientation Not on file documented as of this encounter Plan of Treatment Scheduled Referrals Name Type Priority Associated Diagnoses Orde r Schedule Mat Med Ctr Referral - Referral Routine: Next available opening related condition, antepartum Expected: 10/24/2023 (Approximate), Expires: 04/21/2024 documented as of this encounter Visit Diagnoses Diagnosis related condition, antepartum- Primary documented in this encounter Care Teams Feedmobile Driver Relationship Specialty Start Date End Date Sh Non-Fv Uc Provider, Radiology PCP - General 10/24/23 documented as of this encounter
--- OUTSIDE RECORDS SUMMARY | 2023-10-29 07:25 | XMS_ITS | Clinical Summary ---
Author Organization [facility] Address [address] [place] [id number] Care Team Providers Care Landscaper Name Role Phone Sh Non-Fv Uc Provider, Radiology Primary Care Pr ovider Unavailable Encounters Date Type Department Care Team Description 10/28/2023 2:00 PM CDT Office Visit [facility] [address] [place] [phone] Calista Hazel APRN CNM Rauk, Phillip Neil, MD Obesity affecting in second trimester, unspecified obesity type (Primary Dx) 10/28/2023 1:14 PM CDT - 10/28/2023 11:59 PM CDT Hospital Encounter [facility] [address] [place] [phone] Calista Hazel APRN CNM Rauk, Phillip Neil, MD related condition, antepartum Discharge Disposition: Home or Self Care 10/28/2023 Travel 10/27/2023 PRE VISIT [facility] [address] [place] [phone] Roshni Saucedo, DANNA Ultrasound (L2-AMA, BMI, incomplete heart views) 10/24/2023 Transcribe Orders [facility] [address] [place] [phone] Calista Hazel APRN CNM related condition, antepartum (Primary Dx) 10/24/2023 Transcribe Orders [facility] [address] [place] [address] Calista Hazel APRN CNM related condition, antepartum (Primary Dx) from Last 3 Months Social History Tobacco Use Types Packs/Day Years Used Date Smoking Tobacco: Never Assessed Estimated Date of Delivery Comme nts Yes 03/03/2024 Based on last me nstrual period of 05/28/2023 Sex and Gender Information Value Date Recorded Sex Assigned at Not on file Gender Identity Not on file Sexual Orientation Not on file Plan of Treatment Health Maintenance Due Date Last Done Comments ADVANCE CARE PLANNING 1985 ANNUAL REVIEW OF HM ORDERS 1986 GLUCOSE 1986 YEARLY PREVENTIVE VISIT 1986 HIV SCREENING 2001 HEPATITIS C SCREENING 2004 HEPATITIS B IMMUNIZATION (1 of 3 - 19+ 3-dose series) 2005 PAP 07/19/2007 DTAP/TDAP/TD IMMUNIZATION (3 - Td or Tdap) 01/07/2022 01/08/2012, 12/19/1998 COVID-19 Vaccine (1 - 2022-2 4 season) 2022 PHQ-2 (once per calendar year) 2023 MATERNAL SCREENING DISCUSSION 08/06/2023 OBGCT (OB) 11/12/2023 INFLUENZA VACCINE (#1) 2023 RSV VACCINE ( & 60+ ) (1 - Risk 1-dose series) 01/07/2024 MENINGITIS IMMUNIZATION Aged Out 01/08/2012 No l onger eligible based on patient's age to complete this topic HPV IMMUNIZATION Aged Out No longer e ligible based on patient's age to complete this topic IPV IMMUNIZATION Aged Out No longer e ligible based on patient's age to complete this topic Pneumococcal Vaccine: Pediatrics (0 to 5 Years) and At-Risk Patients (6 to 64 Years) Aged Out No longer eligible b ased on patient's age to complete this topic RSV MONOCLONAL ANTIBODY Aged Out No l onger eligible based on patient's age to complete this topic Procedures Procedure Name Priority Date/Time Associated Diagnosis Comments [facility] Routine 10/28/2023 2:27 PM CDT related condition, antepartum from Last 3 Months Results * [facility] US Comprehensive Single (10/28/2023 2:27 PM CDT) Anatomical Region Laterality Modality Ultrasound 10/28/2023 1:26 PM CDT Impressions 10/28/2023 2:42 PM CDT IMPRESSION ----- 1. Castillo at 21w 6d gestational age. 2. No anomalies commonly detected by ultrasound were identified in the detailed anatomic survey within the limits of ultrasound. 3. Growth parameters and estimated weight were consistent with gestational age predicted by assigned CHRISTA. 4. The amniotic fluid volume appeared normal. 5. On transabdominal imaging the cervix appeared long and closed. Narrative 10/28/2023 2:42 PM CDT ?Comprehensive ----- Pat. Name: TIMOTHYCINTHYANirav MASSIEL ? Study Date: ??10/28/2023 1:26pm Pat. NO: ??[id number] ?Referring ??MD: CALISTA HAZEL Site: ? Gardener: Gregoria Grayson RDMS : ??1985 ?Age: ?? 38 ----- INDICATION ----- Obesity (BMI 52) . Advanced Maternal Age. Incomplete heart views on outside ultrasound METHOD ----- Transabdominal ultrasound examination. View: Suboptimal view: limited by maternal body habitus ----- Castillo . Number of fetuses: 1 DATING ----- ? Date ?Details ?Gest. age ?CHRISTA LMP ?05/28/2023 ?Cycle: regular cycle ?21 w + 6 d ? 03/03/2024 Previous U/S ?07/24/2023 ?GA, GA 8 w + 3 d ? 22 w + 1 d ? 03/01/2024 U/S ? 10/28/2023 ?based upon AC, BPD, Femur, HC ? 22 w + 2 d ? 02/29/2024 Assigned dating ?based on the LMP, selected on 10/28/2023 ? 21 w + 6 d ? 03/03/2024 GENERAL EVALUATION ----- Cardiac activity present. FHR 142 bpm. movements: present. Presentation: cephalic Placenta: posterior, no previa > 2 cm from internal os Umbilical cord: Cord vessels: 3 vessel cord. Insertion site: normal insertion Amniotic fluid: Amount of AF: normal. MVP 4.9 cm BIOMETRY ----- BPD ? 51.8 ?mm ? 21w 5d ?Hadlock OFD ? 75.0 ?mm ? 23w 0d ?Nicolaides HC ? 203.8 ?mm ? 22w 4d ? Hadlock Cerebellum tr ?23.7 ?mm ? 21w 6d ? Nicolaides AC ? 187.5 ?mm ? 23w 4d ?89% ?Hadlock Femur ?36.1 ?mm ? 21w 3d ? Hadlock Humerus ? 34.3 ? mm ?21w 5d ?Steve Weight Calculation: EFW ?514 ? g ? 78% ?Hadlock EFW (lb,oz) ?1 lb 2 ?oz EFW by ? Sierra ([id number]) Head / Face / Neck Biometry: Supervisor Machining ?5.1 ? mm CM ? 4.6 ? mm Nasal bone ? 7.9 ?mm ANATOMY ----- The following structures appear normal: Head / Neck ? Cranium. Head size. Head shape. Lateral ventricles. Choroid plexus. Midline falx. Cavum septi pellucidi. Cerebellum. Cisterna magna. ? Parenchyma. Thalami. Vermis. ? Neck. Face ? Lips. Profile. Nose. Maxilla. Mandible. Orbits. Lens. Heart / Thorax ?4-chamber view. RVOT view. LVOT view. 3-vessel view. 1-gbpfsq-rwqtfkf view. Situs. Aortic arch view. Bicaval view. Ductal arch view. Superior ? vena cava. Inferior vena cava. Cardiac position. Cardiac size. Cardiac rhythm. ? Right lung. Left lung. Diaphragm. Abdomen ? Abdom. wall. Cord insertion. Stomach. Kidneys. Bladder. Liver. Bowel. Genitals. Spine ?Cervical spine. Thoracic spine. Lumbar spine. Sacral spine. Extremities / Skeleton ?Arms. Right arm. Right hand. Left arm. Left hand. Legs. Right leg. Right foot. Left leg. Left foot. MATERNAL STRUCTURES ----- Cervix ?Visualized ? Appearance: Appears Closed ? Approach - Transabdominal: Cervical length 68.9 mm Right Ovary ?Not examined Left Ovary ?Not examined RECOMMENDATION ----- We discussed the findings on today's ultrasound with the patient. For a BMI > 40 we recommend that you assess growth at 28 and 34 weeks and also begin weekly testing at 34 weeks. Return to primary provider for continued care. Thank-you for the opportunity to participate in the care of this patient. If you have questions regarding today's evaluation or if we can be of further service, please contact the [facility] Center. anomalies may be present but not detected Procedure Note Marbin Fuller MD - 10/28/2023 Comprehensive ----- Pat. Name: MASSIEL STEIN Study Date: 10/28/2023 1:26pm Pat. NO: [id number] Referring MD: CALISTA HAZEL Site: Gardener: Gregoria Grayson RDMS : 1985 Age: 38 ----- INDICATION ----- Obesity (BMI 52) . Advanced Maternal Age. Incomplete heart views onoutside ultrasound METHOD ----- Transabdominal ultrasound examination. View: Suboptimal view: limited bymaternal body habitus ----- Castillo . Number of fetuses: 1 DATING ----- DateDetailsGest. age CHRISTA LMP 05/28/2023ycle: regular cycle21 w + 6 d 03/03/2024 Previous U/S 07/24/2023 GA, GA8 w + 3 d22 w + 1 d 03/01/2024 U/S 10/28/2023ased upon AC, BPD, Femur, HC22 w + 2 d 02/29/2024 Assigned dating based on the LMP, selected on w + 6 d 03/03/2024 GENERAL EVALUATION ----- Cardiac activity present. FHR 142 bpm. movements: present.Presentation: cephalic Placenta: posterior, no previa > 2 cm from internal os Umbilical cord: Cord vessels: 3 vessel cord. Insertion site: normalinsertion Amniotic fluid: Amount of AF: normal. MVP 4.9 cm BIOMETRY ----- BPD 51.8mm 21w 5dHadlock OFD 75.0mm 23w 0dNicolaides HC 203.8mm 22w 4dHadlock Cerebellum tr 23.7mm 21w 6dNicolaides AC 187.5mm 23w 4d 89%Hadlock Femur 36.1mm 21w 3dHadlock Humerus 34.3mm 21w 5dJeanty Weight Calculation: EFW 514g 78%Hadlock EFW (lb,oz) 1 lb 2oz EFW by Hadlock([id number]) Head / Face / Neck Biometry: Supervisor Machining 5.1mm CM 4.6mm Nasal bone 7.9mm ANATOMY ----- The following structures appear normal: Head / Neck Cranium. Head size. Head shape.Lateral ventricles. Choroid plexus. Midline falx. Cavum septi pellucidi.Cerebellum. Cisterna magna. Parenchyma. Thalami. Vermis. Neck. Face Lips. Profile. Nose. Maxilla.Mandible. Orbits. Lens. Heart / Thorax 4-chamber view. RVOT view. LVOT view.3-vessel view. 5-eurmfq-migyohe view. Situs. Aortic arch view. Bicavalview. Ductal arch view. Superior vena cava. Inferior vena cava.Cardiac position. Cardiac size. Cardiac rhythm. Right lung. Left lung.Diaphragm. Abdomen Abdom. wall. Cord insertion. Stomach.Kidneys. Bladder. Liver. Bowel. Genitals. Spine Cervical spine. Thoracic spine.Lumbar spine. Sacral spine. Extremities / Skeleton Arms. Right arm. Right hand. Left arm.Left hand. Legs. Right leg. Right foot. Left leg. Left foot. MATERNAL STRUCTURES ----- Cervix Visualized Appearance: Appears Closed Approach - Transabdominal:Cervical length 68.9 mm Right Ovary Not examined Left Ovary Not examined RECOMMENDATION ----- We discussed the findings on today's ultrasound with the patient. For a BMI > 40 we recommend that you assess growth at 28 and 34weeks and also begin weekly testing at 34 weeks. Return to primary provider for continued care. Thank-you for the opportunity to participate in the care of this patient.If you have questions regarding today's evaluation or if we can be offurther service, please contact the [facility]. anomalies may be present but not detected IMPRESSION ----- 1. Castillo at 21w 6d gestational age. 2. No anomalies commonly detected by ultrasound were identified inthe detailed anatomic survey within the limits of prenatalultrasound. 3. Growth parameters and estimated weight were consistent withgestational age predicted by assigned CHRISTA. 4. The amniotic fluid volume appeared normal. 5. On transabdominal imaging the cervix appeared long and closed. Calista Hazel APRN, CNM IMYu MFLázaro PERRY from Last 3 Months Care Teams Landscaper Relationship Specialty Start Date End Date Sh Non-Fv Uc Provider, Radiology PCP - General 10/24/23
--- OUTSIDE RECORDS SUMMARY | 2023-10-29 07:25 | XMS_ITS | Encounter Summary ---
Author Organization [place] Address [facility] [place] [address] Care Team Providers Care Floor Worker Well Service Name Role Phone Sh Non-Fv Uc Provider, Radiology Primary Care Pr ovider Unavailable Reason for Visit * Reason Comments Ultrasound L2-BMI, AMA, incompl ete views on anatomy scan Encounter Details Date Type Department Care Team (Late st Contact Info) Description 10/28/2023 2:00 PM CDT Office Visit [facility] [place] [address] [place] [phone] Calista Van APRN [facility] [address] [place] [address] Marbin Fuller MD [address] [facility] [address] [place] [address] Obesity affecting in second trimester, unspecified obesity type (Primary Dx) Social History Tobacco Use Types Packs/Day Years Used Date Smoking Tobacco: Never Assessed Estimated Date of Delivery Comme nts Yes 03/03/2024 Based on last me nstrual period of 05/28/2023 Sex and Gender Information Value Date Recorded Sex Assigned at Not on file Gender Identity Not on file Sexual Orientation Not on file documented as of this encounter Progress Notes * Marbin Fuller MD - 10/28/2023 2:00 PM CDT Please see Imaging tab under Chart Review for details of today's US at the [facility]. Marbin Fuller MD Maternal- Medicine documented in this encounter Plan of Treatment Not on file documented as of this encounter Visit Diagnoses Diagnosis Obesity affecting in second trimester, unspecified obesity type- Primary documented in this encounter Care Teams Floor Worker Well Service Relationship Specialty Start Date End Date Sh Non-Fv Uc Provider, Radiology PCP - General 10/24/23 documented as of this encounter
--- OUTSIDE RECORDS SUMMARY | 2023-10-29 07:25 | XMS_ITS | Data Portability ---
Author Organization [place] - [facility], [facility] -Facility Address [address] [place] [address] [place] [address] Assessment Encounter Date Assessment Date Assessment LastModified by Organization Details LastModified Time 08/28/2023 08/28/2023 1. NOB at 13.1 weeks gestation. 2. Hx/o Pre-Eclampsia. 3. Obesity. 4. Hx/o C/S. - Encouraged baby ASA to initiate now, prior to 16 weeks. Reviewed reasoning why. - Reviewed shared model of care, encouraged to add pre-eclamptic BL labs with a TSH as she is using topical iodine. - Becoming Mama book from previous . - RTC in 3 weeks for FHR. Time spent face to face establishing OB care and coordinating a plan of care was 60 minutes. Not available 08/28/2023 11:39:05 09/22/2023 09/22/2023 1. EVETTE at 16.5 weeks gestation. - Anatomy U/S next visit, with visit afterwards at [facility]. - Encouraged daily baby ASA. - RTC at 24 weeks. Time spent face to face for routine antepartum care and coordinating a plan of care was 60 minutes. Not available 09/22/2023 17:47:55 Plan of Treatment Reminders Order Date Submit Date Provider Last Modified By Organization Details Last Modified Time Details Appointments None record ed. Lab None record ed. Referral None record ed. Procedures None record ed. Surgeries None record ed. Imaging None record ed. Medication Orders None record ed. Patient TargetsNo targets recorded. Patient InstructionsNo instructions recorded. Reason for Referral None Reported. Problems Name Status Onset Date Resolution Date Notes Provider Name and Address Organization Details Recorded Time Active 024 Shared model of care with [facility] Vladimir Hagan APRN, OLIVIA, NP [address] [place] [address] [place], [address] , [facility] - [facility] 4 17:46:56 Obesity Active Has a pack press operator she meets once/week. HgbA1c per NOB= 5.1% Vladimir Hagan APRN, CNM, NP [address] [place] [address] [place], [address] , [facility] - Full [facility] 4 17:46:55 Past history of section Active Desires TOLAC Vladimir Hagan APRN, CNM, VINEET [address] [place], [place] [address], [place], [address] , [facility] Full [facility] 4 17:46:55 Past history of pre-eclampsi a Active Reviewed increased risk factor for CVD, diabetes, autoimmune d/o later in life. Encouraged baby ASA, to initiate 12-16 weeks. Developed at 41.3 weeks gestation with IOL. Encouraged to add BL pre-eclamptic labs to NOB. Vladimir Hagan APRN, CNM, WILLIAM [address] [place], [place] [address], [place], [address] , [facility] - [facility] 4 17:46:55 Active 024 Shared model of care with [facility] Vladimir Hagan APRN, CNM, NP [address] [place], [place] [address], [place], [address] , [facility] Full [facility] 4 17:46:56 Past history of pre-eclampsi a Active Reviewed increased risk factor for CVD, diabetes, autoimmune d/o later in life. Encouraged baby ASA, to initiate 12-16 weeks. Developed at 41.3 weeks gestation with IOL. Encouraged to add BL pre-eclamptic labs to NOB. Vladimir Hagan APRN, CNM, WILLIAM [address] [place], [place] [address], [place], [address] , [facility] Full [facility] 4 17:46:55 Mixed anxiety and depressive disorder Active Not Available [facility] 4 20:08:33 Obesity Active Has a pack press operator she meets once/week. HgbA1c per NOB= 5.1% Vladimir Hagan APRN, OLIVIA, NP [address] [place] [address], [place], [address] , [facility] 4 17:46:55 Completed 02/27/2022 Shared model of care with [facility] service. NOB labs completed at [facility]- reviewed. 12/20- Has customer care specialist- Vladimir Hagan APRN, OLIVIA, [facility] [address] [place] [address], [address] , [facility] 11:06:26 Problem Notes None recorded. Procedures Surgical History Date Name Laterality Status Provider Name and Address Organization Details Recorded Time Date of Last Pap Smear completed Not Available [facility] 08/06/2023 20:07:34 extraction of wisdom tooth completed Not Available [facility] 08/06/2023 20:06:47 Imaging Results None recorded. Procedure Notes None recorded. Medical Equipment None Reported. Allergies Allergen ID Allergen Name Allergen Category Reaction Reaction Severity Criticality Documentation Date Start Date Code Code System Note Provider Name and Address Organization Details Recorded Time 301 adhesive tape environme nt,medica tion itching Not available low 08/28/2023 ALEENA DUEÑAS, DANNA [address] [place], [address], [facility] 4 10:23:10 Medications Name Sig Start Date Stop Date Status Note LastModified by Organization Details LastModified Time Baby Aspirin 81 mg chewable tablet Chew 1 tablet every day by oral route. 08/27 completed Not Available Not Available Not Available labetalol 100 mg tablet TAKE TWO TABLETS BY MOUTH TWICE A DAY 08/27 completed Not Available Not Available Not Available magnesium 200mg active Not Available Not Rosalba ilable Not Available Vitamin C 2021 active Not Available Not Available Not Avai lable digestive enzymes 2021 active Not Available Not Available Not Avai lable alfalfa active Not Available Not Avail able Not Available zinc 0,54578 active Not Available Not Avail able Not Available Vitamin D3 2021 active Not Available Not Available Not Avai lable Elderberry 08/27 completed Not Available Not Available Not Available Probiotic 2021 active Not Available Not Available Not Avai lable + DHA 2021 active Not Available Not Available Not Avai lable TRUEplus Lancets 28 gauge USE TO TEST BLOOD SUGAR 4 TIMES A DAY 12/20 completed Not Available Not Available Not Available True Metrix Glucose Test Strip USE TO TEST BLOOD SUGAR 4 TIMES A DAY 12/20 completed Not Available Not Available Not Available True Metrix Glucose Meter USE DIRECTED 12/20 completed Not Available Not Available Not Available Lanolin (HPA) 100 % topical cream APPLY TOPICALLY EVERY HOUR NEEDED 09/21 completed Not Available Not Available Not Available Vitals Date Recorded Body mass index (BMI) Body height Body weight Systolic blood pressure Diastolic blood pressure Provider Name and Address Organization Details Last Updated DateTime 11/15/2021 50.4 kg/m2 157.48 cm 230467.3 39 g 122 mm[Hg] 62 mm[Hg] Not Available [facility] 4 20:08:18 Date Recorded Body mass index (BMI) Body height Body weight Systolic blood pressure Diastolic blood pressure Provider Name and Address Organization Details Last Updated DateTime 12/20/2021 53.8 kg/m2 157.48 cm 392030.1 57 g 112 mm[Hg] 66 mm[Hg] Not Available [facility] 4 20:08:18 Date Recorded Body mass index (BMI) Body height Body weight Systolic blood pressure Diastolic blood pressure Provider Name and Address Organization Details Last Updated DateTime 02/27/2022 47.6 kg/m2 157.48 cm 171448.0 16 g 116 mm[Hg] 68 mm[Hg] Not Available [facility] 4 20:08:18 Date Recorded Body height Body mass index (BMI) Systolic blood pressure Diastolic blood pressure Provider Name and Address Organization Details Last Updated DateTime 08/28/2023 157.48 cm 50.4 kg/m2 122 mm[Hg] 68 mm[Hg] ALEENA DUEÑAS, RN [address] [place], [place] [address], [address] , [place] - [facility] 08/28/2023 10:34:00 Date Recorded Body weight Provider Name an d Address Organization Details Last Updated DateTime 08/28/2023 953616.763681 g Vladimir Hagan APRN, OLIVIA, NP [address] [place], [place] [address], [address], [place] - [facility] 08/28/2023 11:33:27 Date Recorded Body height Body mass index (BMI) Systolic blood pressure Diastolic blood pressure Provider Name and Address Organization Details Last Updated DateTime 09/22/2023 157.48 cm 51 kg/m2 120 mm[Hg] 84 mm[Hg] ALEENA DUEÑAS, DANNA [address] [place], [place] [address], [address] , [place] - [facility] 09/22/2023 17:09:26 Date Recorded Body weight Provider Name an d Address Organization Details Last Updated DateTime 09/22/2023 503363.46514 g Vladimir Hagan APRN, CNM, [facility] [address] [place], [place] [address], [address], [facility] Full [facility] 09/22/2023 17:46:39 Social History Question Answer Notes LastModified by Organizat ion Details LastModified Time Tobacco Smoking Status Never Smoker Not Available [facility] 08/06/2023 20:06:58 What Is Your Level Of Alcohol Consumption? Moderate Pre-pregnanc y MIGRATION.[id number] Information not available 08/06/2023 Are You Blind Or Do You Have Difficulty Seeing? No MIGRATION.05105 49406 Information not available 08/06/2023 Are You Currently Employed? Yes MIGRATION.38365 18764 Information not available 08/06/2023 Are You Deaf Or Do You Have Serious Difficulty Hearing? No MIGRATION.27451 99285 Information not available 08/06/2023 What Type Of Diet Are You Following? REGULAR MIGRATION.19213 35815 Information not available 08/06/2023 What Is The Highest Grade Or Level Of School You Have Completed Or The Highest Degree You Have Received? [id number] MIGRATION.45881 20872 Information not available 08/06/2023 Have You Been Exposed To Chemicals Or Toxins? No MIGRATION.33247 78951 Information not available 08/06/2023 Have You Been Exposed To Heavy Metals? No MIGRATION.01695 85766 Information not available 08/06/2023 Have There Been Any Changes To Your Family Or Social Situation? No MIGRATION.52944 89529 Information not available 08/06/2023 Do You Have Any Transportation Challenges? No MIGRATION.90004 01373 Information not available 08/06/2023 Do You Have Enough Food To Eat? Yes MIGRATION.57070 97552 Information not available 08/06/2023 Do You Have People In Your Life You Can Reach Out To For Help Yes MIGRATION.49146 12774 Information not available 08/06/2023 Have You Ever Experienced Abuse From Family Members, Friends, Past Relationships, Etc? No MIGRATION.90162 50409 Information not available 08/06/2023 Have You Ever Been Hit/kicked/slappe d Or Raped In Your Current Relationship? No MIGRATION.15967 25293 Information not available 08/06/2023 Have You Been Exposed To Heavy Metals? No [email or web address] Information not available 08/28/2023 Have You Been Exposed To Chemicals Or Toxins? No [email or web address] Information not available 08/28/2023 Do You Experience Mental Or Emotional Abuse In Your Current Relationship? No MIGRATION.55052 36838 Information not available 08/06/2023 Are You A Survivor Of Abuse? No MIGRATION.53836 01836 Information not available 08/06/2023 What Is Your Relationship Status? Domestic Partner MIGRATION.38429 77445 Information not available 08/06/2023 Are You Sexually Active? Yes MIGRATION.13647 20552 Information not available 08/06/2023 Are You Passively Exposed To Smoke? Yes Childhood MIGRATION.27175 34759 Information not available 08/06/2023 Do You Feel Stressed (tense, Restless, Nervous, Or Anxious, Or Unable To Sleep At Night)? [id number] MIGRATION.64018 96062 Information not available 08/06/2023 Do You Use Any Illicit Or Recreational Drugs? No MIGRATION.69458 57807 Information not available 08/06/2023 Do You Have Any Dietary Restrictions? No [email or web address] Information not available 08/28/2023 Do You Or Have You Ever Used Any Other Forms Of Tobacco Or Nicotine? No MIGRATION.22449 20641 Information not available 08/06/2023 Sex: Unknown Functional Status Question Answer Note LastModified by Organizat ion Details LastModified Time Do you have difficulty walking or climbing stairs? No MIGRATION.[id number] 000 Information not available 08/06/2023 Do you have transportation difficulties? No MIGRATION.[id number] 000 Information not available 08/06/2023 What is your exercise level? Moderate MIGRATION.[id number] 000 Information not available 08/06/2023 Mental Status Question Answer Note LastModified by Organizat ion Details LastModified Time Do you have difficulty concentrating, remembering or making decisions? No [id number].[id number] 0 Information not available 08/06/2023 Family History Relationship Description Onset Age of this Age Resolved Age Notes Sister Polycystic ovary syndrome Medical History Condition Response Allergies (Food, seasonal, environmental ) Y Heart Problems N Kidney or Bladder Problems N Thyroid Problems N Lung Disease N Dermatologic Disorders N GI Problems Y Acne N Breast Problem N Eating Disorder N Gestational Diabetes N Anemia N Hematologic disorders N Anesthesia Complications N History of STI N Polycystic ovary syndrome N Psychiatric Illness N Anxiety Disorder N Diabetes N Autoimmune disease N Arthritis N Infertility N Acid Reflux (GERD) N Cancer N Eczema N Abuse/Domestic Violence N Asthma N Endometriosis N Trauma/Violence N High Cholesterol N Depression/ depression Y Heart Disease N Headaches N Fibromyalgia N Pre-Eclampsia Y Hypertension N Osteoporosis N Thrombophilias N Gynecological History Statement/Question Response History of sexually transmitted infectio n? N Date of LMP 05/28/2023 Frequency of Cycle (Q days) 30 Sexually Active? Y Duration of Flow (days) 4 Date of Last Pap Smear 06/01/2021 Sexual Problems? N LMP Definite Obstetrics History GPAL:G 2 P 1 0 0 1 Type Value Full Term 1 Living 1 Total 2 Past Encounters Encounter ID Performer Location Encounter Start Date Encounter Closed Date Diagnosis/Indication Diagnosis SNOMED-CT Code [id number] _CLIFTON_CLARISSA GRATION_DE FAULT_1 , 11/15/2021 00:00:00 11/15/2021 00:00:00 576 _CLIFTON_MI GRATION_DE FAULT_1 , 12/20/2021 00:00:00 12/20/2021 00:00:00 586 _ATHENA_MI GRATION_DE FAULT_1 , 06/13/2021 00:00:00 06/13/2021 00:00:00 594 _ATHENA_MI GRATION_DE FAULT_1 , 07/25/2021 00:00:00 07/25/2021 00:00:00 616 _ATHENA_MI GRATION_DE FAULT_1 , 11/02/2021 00:00:00 11/02/2021 00:00:00 620 _ATHENA_MI GRATION_DE FAULT_1 , 09/19/2021 00:00:00 09/19/2021 00:00:00 [id number] _ATHENA_MI GRATION_DE FAULT_1 , 02/27/2022 00:00:00 02/28/2022 00:00:00 [id number] Vladimir Hagan APRN, OLIVIA, WILLIAM [facility] Main Office [address] [place] [address] [place] [address] 08/28/2023 10:12:41 10/09/2023 20:23:46 Routine care [id number] Vladimir Hagan APRN, OLIVIA, WILLIAM [facility] [address] [place] [address] [place] [address] 09/22/2023 16:54:47 09/22/2023 17:49:15 Routine care [id number] Health Concerns Section Related Observation LastModified by Organization Detai ls LastModified Time None Recorded Concern Status LastModified by Organization Details LastModified Time None Recorded Advance Directives Directive None Recorded Payers Encounter Date Sequence Insurance Name Policy Number Policy Alvarez Covered Member ID Alvarez Member ID Guarantor Name 08/28/2023 1 [place] [id number] Rosie Stein [id number] 09/22/2023 1 [place] [id number] Rosie Stein [id number] Notes Date Note Type Note Provider Name and Address Organization Details Recorded Time 11/15/2021 text/html HPI Notes: Feeli ng well, no concerns. See OB flowsheet. Not Available [place] - [facility] 11/15/2021 18:09:10 12/20/2021 text/html HPI Notes: Prese nts alone. Feeling overall well, over it as [...] gainfor potential complications. Reviewed warning S/S of GHTN/Pre-eclampsia: denies epigastric discomfort, RUQ discomfort, headaches or visual changes. B/P looks good. Discussed joint pain and comfort measures. Reviewed comfort measures of fluid retention. Discussed labor maneuvers, comfort positions for OP positioned baby. Baby OP per brandy with EFW ~ 3700 grams, very active baby and with body habitus, estimate was difficult. Still goes to pack press operator and chiropractor every week, along with massage once/week. Does not feel ready for baby, but ready for to be done. Was able to obtain another customer care specialist, Sandra Daniella. No growth U/S at [facility], WNL. GBS negative. Remainder of EVETTE at [facility], will schedule for 1 week. Labor S/S reviewed. Not Available [place] - [facility] 12/20/2021 12:55:57 02/27/2022 text/html HPI Notes: S: Jorge cheng is a G1 now P1001 female who is 6 weeks post vaginal of a healthy female named Annie. She had a C/S for prolonged labor, CPD, AOD, FTP at 41.5 weeks gestation status post IOL. Patient has felt some PTSD revolving around this experience. Baby's weight 9-11lbs. Gestational age at : 41.3 weeks Date of : 01/19/2022 site: [facility] Complications of labor/: Postdates IOL (3 days), Late onset Pre-eclampsia, thick meconium- C/S for CPD, FTP, AOD Pertinent complications/histo ry: Nullip, obesity, AMA Feeding: exclusive breast, going well. Concerns about nursing: none. Baby gaining wt well. Denies any hospitalizations. Has been seen at peds provider: [facility] Bleeding: lochia ceased at 4 weeks. No return of menses. Perineal pain: N/A Voiding: without pain or difficulty Bowel movements: without pain or difficulty, but irregular. BM every 2-3 days. Emotional status/Bonding: Bonding well. Stable in mood. PHQ-9= 7; MOLLY-7=6 support/plan: Has good support. Denies domestic violence or abuse. Mother in law, doing well and has 1 chemo treatment left. Plans to be primary caregiver of baby when Delmis RTW. Pap smear: 05/2021- normal. No hx of abnormals. Family planning/contracept ion: Condoms. A: 36 year old female approx 6 weeks post failed IOL, C/S Lactating Mother Plan: Discussed the following with client: routine PP care status post C/S, healing after major surgery. Signs and symptoms of depression/mood disorders. Discussed she is at increased risk secondary to hx/o depression. Mood stable today. Sexuality, return to fertility. Contraception options reviewed. Patient declines hormonal control, desires condoms. Activity and exercise. Reviewed precautions post surgery, weight limitations. Reviewed S/S infection. Nutrition and Hydration- supplements to take and needs. Supplements- PNV, Vit D, Calcium. Pap up to date. Not indicated until 2026. Routine gynecology and access to CNM care. Continue Labatelol as directed by OBGYN. Time utilized for assessment of patient and/or reviewing chart, test results, setting follow up plan, coordinating care= 60 minutes. Not Available [place] - [facility] 02/28/2022 11:49:01 08/28/2023 text/html HPI Notes: This is a 38 year old female presenting to the clinic for a NOB at 13.1 weeks gestation, dated by definite LMP, confirmed with 1st trimester U/S. Unplanned, but welcomed with partner, Rod. She is a TOLAC partnered with [facility], but desires a shared model of care. Presents alone for NOB at 13.1 weeks gestation. Feeling well, no concerns. Is planning shared model of care with [facility] as she risks out of care d/t previous C/S, obesity (BMI=50) and hx/o pre-eclampsia. Encouraged baby ASA as she is not currently taking it. Also encouraged for [facility] to add BL pre-eclamptic labs and a TSH (with topical iodine use) to assure stability. Patient to message pneumatic systems operator and will return to [facility] for lab draws. Offered to draw labs here, but desires [facility] as she will deliver there. Discussed previous experience, not as optimal as she would've liked, but spent time discussing things to utilize to prevent the same scenario. Reviewed shared model of care. RTC in 3 weeks for FHR. Mood stable. Prior care during this ? Yes, established care at [facility]. Dating ultrasound completed or ordered? Yes, previous C/S. Client's thoughts on this : Excited. Health Histories in chart updated/reviewed with client. Discussed nutrition, hydration, exercise, supplements (PNV, Vit D, Ernest 3s) and promotion of . Advised regarding weight gain, food cautions, sibling prep, parenting, self care and mental wellness. Genetic screening informed consent provided. Informed regarding options and timeline- Patient declines genetic screening.- Declined. Relevant OB history reviewed, concerns/questions addressed: Hx/o C/S, pre-eclampsia, eight gain/activity. Risk assessment completed for care per [facility], Policy and Procedure Manual reviewed with client, who does not meet criteria for CENTER at this time. Education checklist reviewed. Time utilized for assessment of patient and/or reviewing chart, test results, setting follow up plan, coordinating care= 60 minutes. RTC 3 weeks Vladimir Hagan APRN, OLIVIA, NP [address] [place] [address], [phone], [facility] - [facility] 08/28/2023 11:41:10 09/22/2023 text/html HPI Notes: Prese nts alone. 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 Started taking baby ASA x 1 week, then stopped due to the bottle having warning of do not take in last 3 months of as it may cause complications in unborn child or complications Continues chiro care and pack press operator care. Anatomy U/S with OLIVIA visit already scheduled at [facility] in 4 weeks. Still needs to complete BL pre-eclamptic labs and 24 hr urine. Plans to pick this up this week. Vladimir Hagan APRN, CNM, WHNP [address] [place] [address], [place], [address], [place] [facility] 09/22/2023 17:49:14 OBGyn Episode Ob Episode Information Episode Created Date Number of Fetuses Patient Bloodtype Patient rh Status Prepregnancy Weight lbs Domestic Partner Domestic Partner Phone Father Name Technical Support Engineer Status 08/28/19 24 1 A Positive 270 Rod OPEN Fetus Data First Name Last Name Admitted to NICU Weight (g) Sex Living Outcome Pediatric Complications Fetus ID Race Codes Race Delivery Type 201 Problems Problem Notes Problem Name Start Date End Date Resolution Snomed Code Not e Past history of pre-eclampsia 02/27/2022 [id number] Reviewed in creased risk factor for CVD, diabetes, autoimmune d/o later in life. Encouraged baby ASA, to initiate 12-16 weeks. Developed at 41.3 weeks gestation with IOL.Encouraged to add BL pre-eclamptic labs to NOB. 08/28/2023 [id number] Shared mo del of care with [facility] Obesity 12/20/2021 [id number] Has a nut ritionist she meets once/week. HgbA1c per NOB= 5.1% Past history of section [id number] Desires CRYSTAL AC Keith Calculation Initial Keith Date Initial Exam Date Initial Exam Provider Initial Ultrasound Date Last Menstrual Period Date Ultra Sound Weeks Gestation 03/03/2024 08/28/2023 05/28/2023 0 Eighteen To Twenty Week Keith Update Ultra Sound Date Fundal Height At Umbil Quickening Date Ultra Sound Latest Weeks Gestation Final Keith Confirmed By Final Keith Confirmed Date Final Keith Date Ultra Sound Latest Days Gestation 0 [email or web address] 08/28/2023 03/03/20 24 0 Pre- Flowsheet Flowsheet Date 08/28/2023 Callahan Score Blood Edema Fundus Height Fundus Units Glucose Ketones Leukocytes Nitrite Labor Signs Protein Cervic Dilation Cervic Effacement Cervic Station none Type Weight in lbs BP Diastolic BP Location Tested BP Systolic BP Type 68 L arm 122 sitting Fetus Heart Rate Present Fetus Movement A No Comments Presents alone for NOB at 13 .1 weeks gestation. Feeling well, no concerns. Is planning shared model of care with [facility] as she risks out of care d/t previous C/S, obesity (BMI=50) and hx/o pre-eclampsia. Encouraged baby ASA as she is not currently taking it. Also encouraged for [facility] to add BL pre-eclamptic labs and a TSH (with topical iodine use) to assure stability. Patient to message pneumatic systems operator and will return to [facility] for lab draws. Offered to draw labs here, but desires [facility] as she will deliver there. Discussed previous experience, not as optimal as she would've liked, but spent time discussing things to utilize to prevent the same scenario. Reviewed shared model of care. RTC in 3 weeks for FHR. Mood stable. Flowsheet Date 09/22/2023 Callahan Score Blood Edema Fundus Height Fundus Units Glucose Ketones Leukocytes Nitrite Labor Signs Protein Cervic Dilation Cervic Effacement Cervic Station 16 wks none Type Weight in lbs BP Diastolic BP Location Tested BP Systolic BP Type 84 L arm 120 sitting Fetus Heart Rate Present A 152 Present Fetus Movement A No Comments Presents alone. 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 Started taking baby ASA x 1 week, then stopped due to the bottle having warning of do not take in last 3 months of as it may cause complications in unborn child or complications Continues chiro care and pack press operator care. Anatomy U/S with CNM visit already scheduled at [facility] in 4 weeks. Still needs to complete BL pre-eclamptic labs and 24 hr urine. Plans to pick this up this week. Menstrual History Last Menstrual Date Menses Monthly On Bcp Conception Prior Menses Frequency Hcg Plus Date Menarche Onset Age 0205/28/2023 true 30 Genetic Screening And Infection History Question Response Note Patient's Age Will Be 35 Yea rs Or Older At Estimated Date of Delivery true Thalassemia (Yakut, Welsh, Mediterranean, Or Background): MCV < 80 false Neural Tube Defect (Meningom yelocele, Spina Bifida, Or Anencephaly) false Congenital Heart Defect false Down Syndrome false Raul-Sachs (eg, Jew, Cajun , South Sudanese-Cypriot) false Ritesh Disease false Sickle Cell Disease Or Trait () false Hemophilia Or Other Blood Disorders false Muscular Dystrophy false Cystic Fibrosis false Pennington's Chorea false Intellectual Disability/Autism false If Yes, Was Person Tested For Fragile X? false Other Inherited Genetic Or C hromosomal Disorder false Maternal Metabolic Disorder (eg, Type 1 Diabetes, PKU) false Patient Or Baby's Father Had A Child With Defects Not Listed Above false Recurrent Loss, Or A Stillbirth false Medications (including Suppl ements, Vitamins, Herbs, OTC Drugs), Illicit/Recreational Drugs, Alcohol true PNV + DHA, Zinc, M ag, Gastrozyme, Vitamin D/K, Minerals, Iodine If Yes, Agent(s) And Strength/Dosage false Any Other Genetic History false Live With Someone With TB Or Exposed To TB false Patient Or Partner Has Histo ry Of Genital Herpes false Rash Or Viral Illness Since Last Menstrual Period false History Of STD, Gonorrhea, C hlamydia, HPV, Syphilis false Other Infection History false History of HIV false History of Hepatitis false Prior GBS-infected child false Recent Travel History Outside of Country false Hemoglobinopathy Or Carrier false Other Structural Defect false Delivery Information Delivery Date Delivery Type Labor Anesthesia Weeks Gestation Incision Type Labor Labor Length Hrs Delivered By Post Complications Tubal Sterilization Discharge Date Comments Discharge Information Feeding Method Contraceptive Method Maternal HG B and HCT Levels
--- OUTSIDE RECORDS SUMMARY | 2023-10-29 07:25 | XMS_ITS | Encounter Summary ---
Author Organization [place] Address [address] [place] [address] Care Team Providers Care Funeral Prearrangement Counselor Name Role Phone Sh Non-Fv Uc Provider, Radiology Primary Care Pr ovider Unavailable Reason for Referral * Diagnostic Imaging Ultrasound (Routine) - Pending Review Specialty Diagnoses / Procedures Referred By Contac t Referred To Contact Radiology. Diagnoses related condition, antepartum Procedures [facility] US Comprehensive Single Calista Hazel APRN [address] [address] Referral ID Status Reason Start Date Expiration Date V isits Requested Visits Authorized [id number] Pending Review 10/24/2023 10/23/2024 1 1 Reason for Visit * Diagnostic Imaging Ultrasound (Routine) - Pending Review Specialty Diagnoses / Procedures [facility] Referred To Contact Radiology. Diagnoses related condition, antepartum Procedures [facility] US Comprehensive [facility] Calista Hazel APRN [facility] [address] [place] [address] Referral ID Status Reason Start Date Expiration Date V isits Requested Visits Authorized [id number] Pending Review 10/24/2023 10/23/2024 1 1 Encounter Details Date Type Department Care Team (Latest Contact Info) Description 10/28/2023 1:14 PM CDT - 10/28/2023 11:59 PM CDT Hospital Encounter [facility] [place] [address] [place] [phone] CarlotaCalista APRN [facility] [address] [place] [address] Marbin Fuller MD [address] [place] [address] related condition, antepartum Discharge Disposition: Home or Self Care Social History Tobacco Use Types Packs/Day Years [...] on file documented as of this encounter Procedures Procedure Name Priority Date/Time Associated Diagnosis Comments [facility] US COMPREHENSIVE SINGLE Routine 10/28/2023 2:27 PM CDT related condition, antepartum documented in this encounter Results * [facility] US Comprehensive Single (10/28/2023 2:27 PM CDT) [...] 2:42 PM CDT ?Comprehensive ----- Pat. Name: MASSIEL STEIN ? Study Date: ??10/28/2023 1:26pm Pat. NO: ??[id number] ?Referring ??MD: CALISTA HAZEL Site: ? Furniture Restorer: Gregoria Grayson RDMS : ??1985 ?Age: ?? [...] ?1 lb 2 ?oz EFW by ? Hadlock ([id number]) Head / Face / Neck Biometry: Funeral Planner ?5.1 ? mm CM ? 4.6 ? [...] view. RVOT view. LVOT view. 3-vessel view. 7-gyqqhu-addthxw view. Situs. Aortic arch view. Bicaval view. [...] STEIN Study Date: 10/28/2023 1:26pm Pat. NO: [id number] Referring MD: CALISTA HAZEL Site: Furniture Restorer: Gregoria Grayson RDMS : 1985 Age: 38 [...] EFW (lb,oz) 1 lb 2oz EFW by Hadlock([id number]) Head / Face / Neck Biometry: Funeral Planner 5.1mm CM 4.6mm Nasal bone 7.9mm ANATOMY ----- The following structures appear normal: Head / Neck Cranium. Head size. Head shape.Lateral ventricles. Choroid plexus. Midline falx. Cavum septi pellucidi.Cerebellum. Cisterna magna. Parenchyma. Thalami. Vermis. Neck. Face Lips. Profile. Nose. Maxilla.Mandible. Orbits. Lens. Heart / Thorax 4-chamber view. RVOT view. LVOT view.3-vessel view. 1-ddnrlk-sjnusdm view. Situs. Aortic arch view. Bicavalview. Ductal [...] and closed. Calista Hazel APRN, CNM IMYu PERRY documented in this encounter Visit Diagnoses Diagnosis related condition, antepartum documented in this encounter Care Teams Funeral Prearrangement Counselor Relationship Specialty Start Date End Date Sh Non-[facility] Provider, Radiology PCP - General 10/24/23 documented as of this encounter
--- OUTSIDE RECORDS SUMMARY | 2023-10-29 07:25 | XMS_ITS | Encounter Summary ---
Author Organization [place] Address [address] [place] [address] Care Team Providers Care Flight Kitchen Manager Name Role Phone Sh Non-Fv Uc Provider, Radiology Primary Care Pr ovider Unavailable Reason for Referral * Diagnostic Imaging Ultrasound (Routine) - Pending Review Specialty Diagnoses / Procedures Referred By Conthalima t Referred To Contact Radiology. Diagnoses related condition, antepartum Procedures [facility] US Comprehensive Single Calista Hazel APRN [facility] [address] [place] [address] Referral ID Status Reason Start Date Expiration Date V isits Requested Visits Authorized [id number] Pending Review 10/24/2023 10/23/2024 1 1 Encounter Details Date Type Department Care Team (Latest Contact Info) Description 10/24/2023 Transcribe Orders [facility] [place] [address] [place] [phone] Calista Hazel APRN [facility] [address] [place] [address] related condition, antepartum (Primary Dx) Social History Tobacco Use Types Packs/Day Years Used Date Smoking Tobacco: Never Assessed Sex and Gender Information Value Date Recorded Sex Assigned at Not on file Gender Identity Not on file Sexual Orientation Not on file documented as of this encounter Plan of Treatment Not on file documented as of this encounter Results * [facility] US Comprehensive Single (10/28/2023 2:27 PM [...] ? Study Date: ??10/28/2023 1:26pm Pat. NO: ??[id number] ?Referring ??: CALISTA HAZEL Site: ? Certified Respiratory Therapist: Gregoria Grayson RDMS : ??1985 ?Age: ?? [...] lb 2 ?oz EFW by ? Hadlock ([id number]) Head / Face / Neck Biometry: Hotbed Transfer Operator ?5.1 ? mm CM ? 4.6 ? [...] view. RVOT view. LVOT view. 3-vessel view. 2-rzlyhf-soogymv view. Situs. Aortic arch view. Bicaval view. [...] STEIN Study Date: 10/28/2023 1:26pm Pat. NO: [id number] Referring MD: CALISTA HAZEL Site: Certified Respiratory Therapist: Gregoria Grayson RDMS : 1985 Age: 38 [...] EFW (lb,oz) 1 lb 2oz EFW by Hadlock([id number]) Head / Face / Neck Biometry: Hotbed Transfer Operator 5.1mm CM 4.6mm Nasal bone 7.9mm ANATOMY ----- The following structures appear normal: Head / Neck Cranium. Head size. Head shape.Lateral ventricles. Choroid plexus. Midline falx. Cavum septi pellucidi.Cerebellum. Cisterna magna. Parenchyma. Thalami. Vermis. Neck. Face Lips. Profile. Nose. Maxilla.Mandible. Orbits. Lens. Heart / Thorax 4-chamber view. RVOT view. LVOT view.3-vessel view. 2-unlwcr-bszjypx view. Situs. Aortic arch view. Bicavalview. Ductal [...] cervix appeared long and closed. Calista Hazel LOOM CLEANER CNM IMG [facility] [place] documented in this encounter Visit Diagnoses Diagnosis related condition, antepartum- Primary related condition, antepartum documented in this encounter Care Teams Flight Kitchen Manager Relationship Specialty Start Date End Date Sh Non-[facility] Provider, Radiology PCP - General 10/24/23 documented as of this encounter
--- OUTSIDE RECORDS SUMMARY | 2023-10-29 07:25 | XMS_ITS | Referral Summary ---
Author Organization [place] Address [address] [place] [address] Care Team Providers Care Hand Paster Name Role Phone Sh Non-Fv Uc Provider, Radiology Primary Care Pr ovider Unavailable Encounters Date Type Department Care Team Description 10/28/2023 Travel 10/28/2023 2:00 PM CDT Office Visit [facility] Maternal Medicine [facility] [address] [place] [address] Calista Hazel APRN CNM Rauk, Phillip Neil, MD Obesity affecting in second trimester, unspecified obesity type (Primary Dx) 10/28/2023 1:14 PM CDT - 10/28/2023 11:59 PM CDT Hospital Encounter [facility] Maternal Medicine [facility] [address] [place] [phone] Calista Hazel APRN CNM Rauk, Phillip Neil, MD related condition, antepartum Discharge Disposition: Home or Self Care 10/27/[address] [facility] Maternal Medicine [facility] [address] [place] [phone] Roshni Saucedo, DANNA Ultrasound (L2-AMA, BMI, incomplete heart views) 10/24/2023 Transcribe Orders [facility] Medicine [facility] [address] [place] [phone] Calista Hazel APRN CNM related condition, antepartum (Primary Dx) 10/24/2023 Transcribe [facility] [place] [address] [facility] [address] [place] [address] Calista Hazel APRN CNM related [...] Orientation Not on file Plan of Treatment Not on file Procedures Procedure Name Priority Date/Time Associated Diagnosis Comments [facility] US COMPREHENSIVE SINGLE Routine 10/28/2023 2:27 PM CDT related condition, antepartum from Last 3 Months Results * [facility] US Comprehensive Single (10/28/2023 2:27 PM CDT) [...] ? Study Date: ??10/28/2023 1:26pm Pat. NO: ??[id number] ?Referring ??MD: CALISTA HAZEL Site: ? Catalyst Plant Supervisor: Gregoria Grayson RDMS : ??1985 ?Age: ?? [...] lb 2 ?oz EFW by ? Hadlock ([id number]) Head / Face / Neck Biometry: Clearing Supervisor ?5.1 ? mm CM ? 4.6 ? [...] view. RVOT view. LVOT view. 3-vessel view. 8-ktfhgx-wfolntj view. Situs. Aortic arch view. Bicaval view. [...] STEIN Study Date: 10/28/2023 1:26pm Pat. NO: [id number] Referring MD: CALISTA HAZEL Site: Catalyst Plant Supervisor: Gregoria Grayson RDMS : 1985 Age: 38 ----- INDICATION ----- Obesity (BMI 52) . Advanced Maternal Age. Incomplete heart views onoutside ultrasound METHOD ----- Transabdominal ultrasound examination. View: Suboptimal view: limited bymaternal body habitus ----- Castillo . Number of fetuses: 1 DATING ----- DateDetailsGest. age CHRISTA LMP 4Cycle: regular cycle21 w + 6 d 03/03/2024 [...] EFW (lb,oz) 1 lb 2oz EFW by Hadlock([id number]) Head / Face / Neck Biometry: Clearing Supervisor 5.1mm CM 4.6mm Nasal bone 7.9mm ANATOMY ----- The following structures appear normal: Head / Neck Cranium. Head size. Head shape.Lateral ventricles. Choroid plexus. Midline falx. Cavum septi pellucidi.Cerebellum. Cisterna magna. Parenchyma. Thalami. Vermis. Neck. Face Lips. Profile. Nose. Maxilla.Mandible. Orbits. Lens. Heart / Thorax 4-chamber view. RVOT view. LVOT view.3-vessel view. 8-ukmdxe-wzqbvxf view. Situs. Aortic arch view. Bicavalview. Ductal [...] and closed. Calista Hazel APRN, CNM IMYu [facility] ARRON PERRY from Last 3 Months Care Teams Hand Paster Relationship Specialty Start Date End Date Sh Non-Fv Uc Provider, Radiology PCP - General 10/24/23
== END 2023-10-28 12:32 | disposition home or self-care (01) ==
LOC: NFLDREF 10-29 07:23
PROVIDERS: Visit Provider Advanced Practice Midwife
DX: O09.299 Supervision of pregnancy with other poor reproductive or obstetric history, unspecified trimester (principal)
CPT/HCPCS: 82570; 84156

== ENCOUNTER 2024-02-03 11:35 | Outpatient (CLI) | payer BC, SELFPAY ==
--- OUTSIDE RECORDS SUMMARY | 2024-02-04 14:56 | XMS_ITS | Referral Summary ---
Author Organization [place] Address [facility] [place] [address] Care Team Providers Care Operations Plant Attendant Name Role Phone Sh Non-Fv Uc Provider, Radiology Primary Care Pr ovider Unavailable Social History Tobacco Use Types Packs/Day Years Used Date Smoking Tobacco: Never Assessed Adolescent Education Answer Date Record ed Getting School Help Needed Not on file 10/27 Estimated Date of Delivery Comme nts Yes 03/03/2024 Based on last me nstrual period of 05/28/2023 Sex and Gender Information Value Date Recorded Sex Assigned at Not on file Gender Identity Not on file Sexual Orientation Not on file Plan of Treatment Not on file Care Teams Operations Plant Attendant Relationship Specialty Start Date End Date Sh Non-Fv Uc Provider, Radiology PCP - General 10/24/23
--- OUTSIDE RECORDS SUMMARY | 2024-02-04 14:56 | XMS_ITS | Encounter Summary ---
Author Organization [place] Address [address] [place] [address] Care Team Providers Care Rope Silica Machine Operator Name Role Phone Sh Non-Fv Uc Provider, [...] on filedocumented in this encounter Care Teams Rope Silica Machine Operator Relationship Specialty Start Date End Date Sh Non-Fv Uc Provider, Radiology PCP - General 10/24/23 documented as of this encounter
--- OUTSIDE RECORDS SUMMARY | 2024-02-04 14:56 | XMS_ITS | Clinical Summary ---
Author Organization [place] Address [address] [place] [address] Care Team Providers Care Customer Pricing Manager Name Role Phone Sh Non-Fv Uc [...] - Td or Tdap) 01/07/2022 01/08/2012, 12/19/1998 PHQ-2 (once per calendar year) 2023 MATERNAL SCREENING DISCUSSION 08/06/2023 OBGCT (OB) 11/12/2023 COVID-19 Vaccine (1 - 2023-2 5 season) 2023 INFLUENZA VACCINE (#1) 2023 RSV VACCINE (1 - Risk 1-dose series) 01/07/2024 GROUP B STREP SCREENING 02/04/2024 MENINGITIS IMMUNIZATION Aged Out 01/08/2012 No l [...] on patient's age to complete this topic Care Teams Customer Pricing Manager Relationship Specialty Start Date End Date Sh Non-Fv Uc Provider, Radiology PCP - General 10/24/23
--- OUTSIDE RECORDS SUMMARY | 2024-02-04 14:57 | XMS_ITS | Encounter Summary ---
Author Organization [place] Address [address] [place] [address] Care Team Providers Care Mental Health Coordinator Name Role Phone Sh Non-Fv Uc Provider, Radiology Primary Care Pr ovider Unavailable Reason for Referral * Diagnostic Imaging Ultrasound (Routine) - Pending Review Specialty Diagnoses / Procedures Referred By Contac t Referred To Contact Radiology. Diagnoses related condition, antepartum Procedures [facility] US Comprehensive Single Calista Hazel APRN [address] [address] Referral ID Status Reason Start Date Expiration Date V isits Requested Visits Authorized [id number] Pending Review 10/24/2023 10/23/2024 1 1 Reason for Visit * Diagnostic Imaging Ultrasound (Routine) - Pending Review Specialty Diagnoses / Procedures [facility] Referred To Contact Radiology. Diagnoses related condition, antepartum Procedures [facility] US Comprehensive [facility] Calista Hazel APRN [facility] [address] [place] [address] Referral ID Status Reason Start Date Expiration Date V isits Requested Visits Authorized [id number] Pending Review 10/24/2023 10/23/2024 1 1 Encounter Details Date Type Department Care Team (Latest Contact Info) Description 10/28/2023 1:14 PM CDT - 10/28/2023 11:59 PM CDT Hospital Encounter [facility] [place] [address] [facility] [address] [place] [address] CarlotaCalista APRN [facility] [address] [place] [address] Marbin Fuller MD [address] [place] [address] related condition, antepartum Discharge Disposition: Home or [...] Procedure Name Priority Date/Time Associated Diagnosis Comments [facility] COMPREHENSIVE SINGLE Routine 10/28/2023 2:27 PM CDT related condition, antepartum documented in this encounter Results * [facility] Comprehensive Single (10/28/2023 2:27 PM CDT) Anatomical [...] ? Study Date: ??10/28/2023 1:26pm Pat. NO: ??[id number] ?Referring ??MD: CALISTA HAZEL Site: ? Housekeeping Coordinator: Gregoria Grayson RDMS : ??1985 ?Age: ?? [...] lb 2 ?oz EFW by ? Hadlock ([id number]) Head / Face / Neck Biometry: Professor Of Genetics ?5.1 ? mm CM ? 4.6 ? [...] view. RVOT view. LVOT view. 3-vessel view. 4-fdkhdn-nidmjwi view. Situs. Aortic arch view. Bicaval view. [...] STEIN Study Date: 10/28/2023 1:26pm Pat. NO: [id number] Referring MD: CALISTA HAZEL Site: Housekeeping Coordinator: Gregoria Grayson RDMS : 1985 Age: 38 [...] EFW (lb,oz) 1 lb 2oz EFW by Hadlock([id number]) Head / Face / Neck Biometry: Professor Of Genetics 5.1mm CM 4.6mm Nasal bone 7.9mm ANATOMY ----- The following structures appear normal: Head / Neck Cranium. Head size. Head shape.Lateral ventricles. Choroid plexus. Midline falx. Cavum septi pellucidi.Cerebellum. Cisterna magna. Parenchyma. Thalami. Vermis. Neck. Face Lips. Profile. Nose. Maxilla.Mandible. Orbits. Lens. Heart / Thorax 4-chamber view. RVOT view. LVOT view.3-vessel view. 1-zlvwij-jghfelo view. Situs. Aortic arch view. Bicavalview. Ductal [...] long and closed. Calista Hazel APRN, CNM IMG [facility] [place] [place] documented in this encounter Visit Diagnoses Diagnosis related condition, antepartum documented in this encounter Care Teams Mental Health Coordinator Relationship Specialty Start Date End Date Sh Non-[facility] Provider, Radiology PCP - General 10/24/23 documented as of this encounter
--- OUTSIDE RECORDS SUMMARY | 2024-02-04 14:57 | XMS_ITS | Data Portability ---
Author Organization [place] - [employer], [employer] [facility] Address [address] [facility] [address] [place] [address] Assessment Encounter Date Assessment Date Assessment LastModified by Organization Details LastModified Time 09/19/2021 09/19/2021 1. EVETTE at 23.5 weeks gestation. 2. Obesity. - Reviewed PTL S/S, when to seek medical care. - Encouraged class via Account Review Specialist if possible. - Encouraged daily baby ASA. - Reviewed comfort measures of ligament stretching and adequate hydration for suspicious constipation. - RTC in 4 weeks at [place], then 8 weeks at [facility]. Time spent face to face for EVETTE was 40 minutes. Not available 09/19/2021 16:51:36 11/02/2021 11/02/2021 1. EVETTE at 30 weeks. 2. Obesity. - Reviewed remainder of shared care model. Patient doing well, encouraged adequate hydration and limiting sugar within diet. - Encouraged swimming/tub soaks for feet swelling, as well as eliminating sodium intake. - RTC in 2 weeks. Time spent face to face for 30 week gestation was 45 minutes. Not available 11/02/2021 11:19:34 11/15/2021 11/15/2021 1. EVETTE at 32.1 weeks gestation. 2. Stress. 3. Obesity. - Reviewed comfort measures of uterine cramping. Reviewed PTL S/S and when to seek medical attention. - Encouraged 2 week EVETTE in [place] as they desire a growth U/S secondary to obesity. Reviewed WNL fundal height and guidelines facilities may follow with BMI >40. - RTC 2 week PP for mood check. Time spent face to face for EVETTE at 32 weeks was 50 minutes. Not available 11/15/2021 18:09:05 12/20/2021 12/20/2021 1. EVETTE at 37 weeks. 2. Obesity in . 3. AMA. - Reviewed comfort measures for swelling, joint discomfort and sleep. - Labor S/S reviewed, along with labor maneuvers/comfor t measures for malpositioned baby in labor. - PNC to be complete at [place]. - Reviewed warning S/S of GHTN/Pre-eclamps ia. - RTC in 1 week [place]. - RTC at [facility] 2 weeks PP for mood check. Reviewed PP care done at [facility]. Time spent face to face reviewing end of , risk factors, warning S/S, comfort measures and coordinating a POC for PP was 60 minutes. Not available 12/20/2021 12:54:47 02/27/2022 02/27/2022 1. 6 week exam. 2. Status post Section. 3. Lactating mom. - Reviewed normal PP period with the patient. Reviewed risk of PP depression occurring/worsen ing up to a year after the of the . Discussed [facility] offering monthly PP visits to assure adequate maternal care within PP period. Instructed to call with low mood, inability to enjoy usual activities, problems with sleep, appetite, or increased anger. She is to go to the emergency room if she has nay feelings of harming herself, baby, or anyone else. - Reviewed pap smear screening guidelines, due 2026. - Reviewed PP contraception options available. Patient desires to avoid hormonal contraception. Desires condom use. - Patient is self-aware of increased risk for PP mood disorder d/t personal depression history. She has also expressed some post traumatic stress from her and management of her labor experience. She has a lot of unanswered questions and feeling some trauma from this. Encouraged her to work through those thoughts, talk about them, and even encouraged a follow up with the providers to work out some mis-communicatio n or secrets that may have happened. Overall, she had a poor experience and desires some peace with this. - Reviewed precautions post surgery, weight limitations. Reviewed S/S infection. - Reviewed long-term risks associated with late onset of pre-eclampsia such as CVD, Autoimmune D/O, Diabetes, etc. As well as the recurrence of pre-eclampsia in consecutive pregnancies. Encouraged to continue labetalol as directed by OBGYN, F/U with her as needed. - F/U with me in 6 weeks for PP mood. Time utilized for assessment of patient and/or reviewing chart, test results, setting follow up plan, coordinating care= 60 minutes. Not available 02/27/2022 16:14:45 Plan of Treatment Reminders Order Date Submit Date Provider Last Modified By Organization Details Last Modified Time Details Appointments None record ed. Lab None record ed. Referral None record ed. Procedures None record ed. Surgeries None record ed. Imaging None record ed. Medication Orders None record ed. Patient TargetsNo targets recorded. Patient Instructions Encounter Date Encounter Id Patient Instructions Last Modified By Organization Details Last Modified Time 02/27/2022 [id number] Patient Health Questionnaire-9* Not available 02/27/2022 16:16:54 MOLLY-7 anxiety scale* Not available 02/27/2022 16:16:54 Reason for Referral None Reported. Problems Name Problem SNOMED Code Status Onset Date Resolution Date Notes Provider Name and Address Organization Details Recorded Time Mixed anxiety and depressi ve disorder 054294268 Active 2021 Vladimir Hagan APRN, CNM, [facility] [address], [place], [address] , [employer] 2 14:36:21 Obesity 238927824 Active 2021 Has a nutritio nist she meets once/mitul k. Vladimir Hagan APRN, CNM, [facility] [address], [place], [address] , [employer] 2 15:52:01 Generali zed obesity 496952080 Completed 2021 BMI=45.4 . Reviewed may not be a CNM candidat e for delivery . Discusse d options, patient desires delivery at [facility]. HgbA1c= 5.1%; early 1 hr gtt= 134. Vladimir Hagan APRN, CNM, [facility] [address], [place], [address] , [employer] 2 15:06:39 Anxiety 06030529 Completed 2021 EPDS= 8 at NOB. Declined talk therapy. Is able to recogniz e triggers and resoluti ons. 12/20- Mood stable- Vladimir DALEY, [facility] [address], [place], [address] , [employer] 2 15:06:39 Advanced maternal age 308253708 Completed 2021 Will be 36 at [place]. Encourag ed baby ASA at 12 weeks gestatio n. 12/20- not currentl y taking, using natural suppleme nts guided by Dr. Persaud ([facility]) Vladimir Hagan APRN, CNM, [facility] [address] [facility] [address], [place], [address] , [employer] 2 15:06:39 Pregnanc y 62009638 Completed 202102/27/2022 Shared model of care with [facility] service. NOB labs complete d at [facility]- reviewed . 12/20- Has electrician telephone- Vladimir Hagan APRN, CNM, [facility] [address] [facility] [address], [place], [address] , [employer] 2 15:06:45 Pregnanc y 87531040 Completed 2021 Shared model of care with [facility] service. NOB labs complete d at [facility]- reviewed . 12/20- Has electrician telephone- Vladimir DALEY, [facility] [address], [place], [address] , [employer] 2 15:06:39 Obesity 552267936 Completed 202112/21/19 22: BMI= 53. Weight gain in pregnanc y ~40 lbs. Has a nutritio nist she meets once/mitul Guerrerobarbi Morrisjacky AIKEN CNM, [facility] [address] [place] [address] [address], [place], [address] , [employer]. 2 15:06:39 Past pregnanc y history of pre-ecla mpsia 57958218570 9100 Active 2021 Reviewed increase d risk factor for CVD, diabetes , autoimmu ne d/o later in life. Vladimir Hagan APRN, CNM, [facility] [address] [facility] [address], [place], [address] , [employer] 2 15:52:45 Problem Notes None recorded. Procedures Surgical History Date Name Laterality Status Provider Name and Address Organization Details Recorded Time 2 Date of Last Pap Smear completed Vladimir Hagan APRN, CNM, [address], [place], [address], [employer]. 06/13/2021 14:45:32 extraction of wisdom tooth completed Vladimir Hagan APRN, CNM, [facility] [address] [place] [address] [address], [place], [address], [employer]. 06/13/2021 14:55:28 Imaging Results None recorded. Procedure Notes None recorded. Medical Equipment None Reported. Allergies No known drug allergies Medications Name Sig Start Date Stop Date Status Note LastModified by Organization Details LastModified Time Baby Aspirin 81 mg chewable tablet Chew 1 tablet every day by oral route. active Not Available Not Available No t Available labetalol 100 mg tablet TAKE TWO TABLETS BY MOUTH TWICE A DAY active Not Available Not Available No t Available Vitamin C active Not Available Not Rosalba ilable Not Available digestive enzymes active Not Available Not Available Not Available Vitamin D3 active Not Available Not Av ailable Not Available Elderberry active Not Available Not Av ailable Not Available Probiotic active Not Available Not Rosalba ilable Not Available + DHA active Not Available Not Available Not Available TRUEplus Lancets 28 gauge USE TO TEST [...] topical cream APPLY TOPICALLY EVERY HOUR NEEDED active Not Available Not Available No t Available Vitals Date Recorded Body height Body mass index (BMI) Body weight Systolic blood pressure Diastolic blood pressure Provider Name and Address Organization Details Last Updated DateTime 09/19/2021 157.48 cm 48.3 kg/m2 009918.3 8568 g 118 mm[Hg] 62 mm[Hg] Vladimir DALEY, [facility] [address] [employer] [address], [place], [address] , [employer]. 16:11:46 Date Recorded Body height Body mass index (BMI) Body weight Systolic blood pressure Diastolic blood pressure Provider Name and Address Organization Details Last Updated DateTime 11/02/2021 157.48 cm 50.2 kg/m2 264392.1 22981 g 120 mm[Hg] 62 mm[Hg] Vladimir DALEY, [facility] [address], [place] [place], [address] , [employer]. 11:06:52 Date Recorded Body weight Body mass index (BMI) Body height Systolic blood pressure Diastolic blood pressure Provider Name and Address Organization Details Last Updated DateTime 11/15/2021 121898.3 68458 g 50.4 kg/m2 157.48 cm 122 mm[Hg] 62 mm[Hg] Vladimir DALEY, [facility] [address], [place], [address] , [employer]. 15:54:47 Date Recorded Body height Body mass index (BMI) Body weight Systolic blood pressure Diastolic blood pressure Provider Name and Address Organization Details Last Updated DateTime 12/20/2021 157.48 cm 53.8 kg/m2 804173.1 5678 g 112 mm[Hg] 66 mm[Hg] Vladimir Pabarbi DALEYáLzaro, [facility] [address], [place], [address] , [place] [employer] 2 11:35:33 Date Recorded Body height Body mass index (BMI) Body weight Systolic blood pressure Diastolic blood pressure Provider Name and Address Organization Details Last Updated DateTime 02/27/2022 157.48 cm 47.6 kg/m2 016430.0 162 g 116 mm[Hg] 68 mm[Hg] Vladimir Morrisjacky DALEYLázaro, [facility] [address], [place], [address] , [place] [employer] 2 15:00:53 Social History Question Answer Notes LastModified by Organizat ion Details LastModified Time Tobacco Smoking Status Never Smoker Vladimir Schwjacky AIKEN CNM, [facility] [address], [place], [address], [facility] [employer] 06/13/2021 14:47:02 What Is Your Level Of Alcohol Consumption? Moderate Pre-pregnanc y Information not available 06/13/2021 Are You Blind Or Do You Have Difficulty Seeing? No Information not available 06/13/2021 Are You Currently Employed? Yes Information not available 06/13/2021 Are You Deaf Or Do You Have Serious Difficulty Hearing? No Information not available 06/13/2021 What Type Of Diet Are You Following? REGULAR Information not available 06/13/2021 What Is The Highest Grade Or Level Of School You Have Completed Or The Highest Degree You Have Received? [id number] Information not available 06/13/2021 Have You Been Exposed To Chemicals Or Toxins? No Information not available 06/13/2021 Have You Been Exposed To Heavy Metals? No Information not available 06/13/2021 Have There Been Any Changes To Your Family Or Social Situation? No Information no t available 06/13/2021 Do You Have People In Your Life You Can Reach Out To For Help Yes Information not available 06/13/2021 Do You Have Any Transportation Challenges? No Information not available 06/13/2021 Do You Have Enough Food To Eat? Yes Information not available 06/13/2021 Have You Consumed Alcohol Since Becoming ? No Information not available 06/13/2021 Have You Used Any Illegal Drugs While ? No Information not available 06/13/2021 Do You Experience Mental Or Emotional Abuse In Your Current Relationship? No Information not available 06/13/2021 Are You A Survivor Of Abuse? No Information not available 06/13/2021 Do You Currently Smoke Or Vape? No Information not available 06/13/2021 What Is Your Relationship Status? Domestic Partner Information not available 06/13/2021 Are You Sexually Active? Yes Information not available 06/13/2021 Are You Passively Exposed To Smoke? Yes Childhood Information no t available 06/13/2021 Do You Feel Stressed (tense, Restless, Nervous, Or Anxious, Or Unable To Sleep At Night)? [id number] Information not available 06/13/2021 Do You Use Any Illicit Or Recreational Drugs? No Information not available 06/13/2021 Do You Or Have You Ever Used Any Other Forms Of Tobacco Or Nicotine? No Information not available 06/13/2021 Sex: Unknown Functional Status Question Answer Note LastModified by Organizat ion Details LastModified Time Do you have difficulty walking or climbing stairs? No Information not available 06/13/2021 Do you have transportation difficulties? No Information not available 06/13/2021 Do you have difficulty doing errands alone? No Information not available 06/13/2021 Are you able to care for yourself? Yes Information not available 06/13/2021 Do you have difficulty dressing or bathing? No Information not available 06/13/2021 What is your exercise level? Moderate Information not available 06/13/2021 Mental Status Question Answer Note LastModified by Organization D etails LastModified Time Do you have difficulty concentrating, remembering or making decisions? No Information no t available 06/13/2021 Family History Relationship Description Onset Age of this Age Resolved Age Notes LastModified by Organization Details LastModified Time Sister Polycystic ovary syndrome [email or web address] Not available 06/13 14:46:10 Medical History Condition Response Acid reflux (GERD) N Blood disorders N Depression Y Gestational diabetes N Headaches/Migraines N Incontinence/leaking urine or stool N Arthritis N Infertility N Cancer N Anemia (low hemoglobin/iron) N bleeding problems N Pelvic infection N Fibromyalgia N Heart Problems N High blood pressure N Anxiety Y Blood transfusion N Kidney or Bladder Problems N Acne N High blood pressure in N Asthma N Sexually transmitted infection N Hepatitis N Anesthesia complications N Lung Disease N Breast Problem N Bipolar N Varicose veins N High cholesterol N Eating disorder N Endometriosis N Polycystic Ovarian Syndrome (PCOS) N Chronic pelvic pain N Thyroid Problems N Gastrointestinal Problems N Eczema N delivery in past N Osteoporosis N Gynecological History Statement/Question Response Duration of Flow (days) 4 Date of Last Pap Smear 06/01/2021 Date of LMP 04/02/2021 LMP Definite Frequency of Cycle (Q days) 30 Y N Obstetrics History GPAL:G 1 P 1 0 0 1 Type Value Full Term 1 Living 1 Total 1 Past Encounters Encounter ID Performer Location Encounter Start Date Encounter Closed Date Diagnosis/Indication Diagnosis SNOMED-CT Code Diagnosis ICD10 Code [id number] WILLIAM Foster APRN, CNM [facility] [address] [place] [address] [place] [address] 06/13/2021 13:59:31 06/13/2021 17:30:21 Routine care 849111410 Z34.01 Z3A.10 E66.9 [id number] WILLIAM Foster APRN, CNM [facility] [address] [place] [address] [place] [address] 07/25/2021 15:55:26 07/26/2021 09:52:27 Routine care 695859948 Z34.02 Z3A.15 [id number] Vladimir Hagan APRN, CNM, [facility] [address] [place] [address] [place] [address] 09/19/2021 16:02:55 09/21/2021 11:01:41 Routine care 056893960 Z34.02 Z3A.23 [id number] Vladimir Hagan APRN, CNM, [facility] [address] [place] [address] [place] [address] 11/02/2021 10:02:27 11/02/2021 11:42:38 Routine care 460987067 Z34.03 Z3A.30 Z68.43 [id number] Vladimir Hagan APRN, CNM, [facility] [address] [place] [address] [place] [address] 11/15/2021 15:09:12 11/16/2021 10:01:31 Routine care 270090124 Z34.03 Z3A.32 Z68.43 [id number] Vladimir Hagan APRN, CNM, [facility] [address] [place] [address] [place] [address] 12/20/2021 11:08:49 12/20/2021 16:46:55 Routine care 541354746 Z34.03 O09.523 Z3A.37 O99.213 [id number] Vladimir Hagan APRN, CNM, [facility] [address] [place] [address] [place] [address] 02/27/2022 14:04:15 02/28/2022 10:43:36 care 214779561 Z39.2 Z87.59 Maternal p ostpartum depression screening 5438521144 82909 Z13.32 Health Concerns Section Related Observation LastModified by Organization Detai ls LastModified Time None Recorded Concern Status LastModified by Organization Details LastModified Time None Recorded Advance Directives Directive None Recorded Payers Encounter Date Sequence Insurance Name Policy Number Policy Alvarez Covered Member ID Alvarez Member ID Guarantor Name 09/19/2021 [place] [id number] Rosie K Goplen [id number] Rosie Goplen 11/02/2021 1 [place] [id number] Rosie K Goplen [id number] Rosie Goplen 11/15/2021 1 [place] [id number] Rosie K Goplen [id number] Rosie Goplen 12/20/2021 1 [place] [id number] Rosie K Goplen [id number] Rosie Goplen 02/27/2022 1 [place] [id number] Rosie K Goplen [id number] Rosie Goplen Notes Date Note Type Note Provider Name and Address Organization Details Recorded Time 09/19/2021 text/html HPI Notes: This is a 36 year old presenting to the clinic for an EVETTE at 23.5 weekd gestation. See prentatl entry. Feeling well, no concerns. Anatomy U/S at [place] and [facility]. Obtained a electrician telephone and excited to meet with her. Next visit in 4 weeks at [place]. WILLIAM Foster APRN, CNM [address] [facility] [address], [place], [address], [facility] [employer] 09/19/2021 16:53:46 11/02/2021 text/html HPI Notes: Have you breastfed in the past? NO If so, did you meet you goals? NA Did you notice breast changes at the beginning of ?NO Do you have any history of breast surgery?NO Do you have any concerns about the size or shape of your breasts or nipples?NO Do you have any other concerns about ?NO WILLIAM Foster APRN, CNM [address] [facility] [address], [place], [address], [facility] [employer] 11/02/2021 11:19:37 11/15/2021 text/html HPI Notes: Feeli ng well, no concerns. See OB flowsheet. Vladimir Danya DALEY, [facility] [address] [facility] [address], [place], [address], [facility] [employer] 11/15/2021 18:09:10 12/20/2021 text/html HPI Notes: Prese [...] habitus, estimate was difficult. Still goes to electronic engraver and chiropractor every week, along with massage once/week. Does not feel ready for baby, but ready for to be done. Was able to obtain another electrician telephone, Sandra Heflin. No growth U/S at [place], WNL. GBS negative. Remainder of EVETTE at [place], will schedule for 1 week. Labor S/S reviewed. Vladimir Hgaan APRN, CNM, [facility] [address] [facility] [address], [place], [address], [employer] 12/20/2021 12:55:57 02/27/2022 text/html HPI Notes: S: Jorge cheng is a G1 now P1001 female who is 6 weeks post vaginal of a healthy female infant named Annie. She had a C/S for prolonged labor, CPD, AOD, FTP at 41.5 weeks gestation status post IOL. Patient has felt some PTSD revolving around this experience. Baby's weight 9-11lbs. Gestational age at : 41.3 weeks Date of : 01/19/2022 site: [facility] Complications of labor/: Postdates IOL (3 days), Late onset Pre-eclampsia, thick meconium- C/S for CPD, FTP, AOD Pertinent complications/histo ry: Nullip, obesity, AMA Feeding: exclusive breast, going well. Concerns about nursing: none. Baby gaining wt well. Denies any hospitalizations. Has been seen at peds provider: Health system Bleeding: lochia ceased at 4 weeks. No [...] follow up plan, coordinating care= 60 minutes. Vladimir Hagan APRN CN, [facility] [address] [facility] [address], [place], [address], [facility] [employer]. 02/28/2022 11:49:01 OBGyn Episode Ob Episode Information Episode Created Date Number of Fetuses Patient Bloodtype Patient rh Status Prepregnancy Weight lbs Domestic Partner Domestic Partner Phone Father Name Clinic Director Status 06/13/19 22 1 A Positive 255 Rod CLOSED Fetus Data First Name Last Name Admitted to NICU Weight (g) Sex Living Outcome Pediatric Complications Fetus ID Race Codes Race Delivery Type Memo rubio n false 4394.17 25 F true Full Term thick meconium [id number] declin ed Patie nt Decli claudette C-/T OL C-/V E/forceps Problems Problem Notes Problem Name Start Date End Date Resolution Snomed Code Not e Generalized obesity 06/13/2021 [id number] BMI=45.4. Reviewed may not be a CNM candidate for delivery. Discussed options, patient desires delivery at [place]. HgbA1c= 5.1%; early 1 hr gtt= 134. Anxiety 06/13/2021 86587055 EPDS= 8 a t NOB. Declined talk therapy. Is able to recognize triggers and resolutions. 12/20- Mood stable- Advanced maternal age 06/13/2021 [id number] Will be 36 at E DD. Encouraged baby ASA at 12 weeks gestation. 12/20- not currently taking, using natural supplements guided by Dr. Persaud (chiro) Obesity 12/20/2021 [id number] 2: BMI= 53. Weight gain in ~40 lbs. Has a electronic engraver she meets once/week. 06/13/2021 [id number] Shared mo del of care with [facility] service. NOB labs completed at [place]- reviewed.12/20- Has alvarez- Christa Calculation Initial Christa Date Initial Exam Date Initial Exam Provider Initial Ultrasound Date Last Menstrual Period Date Ultra Sound Weeks Gestation 01/09/2022 06/13/2021 06/01/2021 04/02/2021 8 Eighteen To Twenty Week Christa Update Ultra Sound Date Fundal Height At Umbil Quickening Date Ultra Sound Latest Weeks Gestation Final Christa Confirmed By Final Christa Confirmed Date Final Christa Date Ultra Sound Latest Days Gestation 0 11/15/2021 01/10/20 22 0 Pre- Flowsheet Flowsheet Date 06/13/2021 Callahan Score Blood Edema Fundus Height Fundus Units Glucose Ketones Leukocytes Nitrite Labor Signs Protein Cervic Dilation Cervic Effacement Cervic Station none Type Weight in lbs BP Diastolic BP Location Tested BP Systolic BP Type 72 108 Fetus Heart Rate Present Fetus Movement A No Comments N- Presents alone for NOB PN V at 9.5 weeks gestation. was unplanned but welcomed. Monogamous relationship with Rod x 9 years. Feeling well with occasional nausea, resolved with increase in protein and frequent snacking. Follows a clean, whole food diet d/t prior history of gut inflammation. Was seen initially at [facility]. [place] it was very medical and her questions were not answered- which resulted in feeling very overwhelmed and a bit ashamed. Desires a natural, holistic approach to care. Reviewed 1st trimester care extensively, then what to expect in her course. Reviewed shared model of care. Encouraged to keep appt with CNM at [place] at 12 weeks, instructed to ask their guidelines on CNM care with BMI. Even if she is unable to deliver with CNM service, she can still see [facility] as a shared model. NOB labs reviewed. Declines flu and covid-19 vaccine. Reviewed current data/risks per [facility], encouraged to research more if needed. Encouraged early 1 hr gtt d/t obesity. Encouraged baby ASA at 12 weeks gestation for the following risk factors: AMA, obesity, and nullip. Patient exercises 4-5 days/week, clean diet, non-smoker and attend regular chiropractic appointments. Unable to hear FHR secondary to early gestation and body habitus. RTC in 6 weeks. Flowsheet Date 07/25/2021 Callahan Score Blood Edema Fundus Height Fundus Units Glucose Ketones Leukocytes Nitrite Labor Signs Protein Cervic Dilation Cervic Effacement Cervic Station 16 wks none Type Weight in lbs BP Diastolic BP Location Tested BP Systolic BP Type 64 116 Fetus Heart Rate Present A 148 Present Fetus Movement A Yes Comments Presents alone for EVETTE at 15 .5 weeks gestation. Feeling good, no concerns. Is dealing with a lot of stress: have not told anyone about and feels very alone with it, [employer] is getting very busy with supply and demand, is feeling crabby because of the lack of prolong sleep. States this has been an issue x 5 years, but being fatigued with she is really wanting to get a solid 7-8 hours vs 2hr increments. Discussed sleep aids to help assist in reducing anxiousness and calming the mind, and promoting sleep. Has open communication with Rod regarding to feeling alone, he is supportive and she feels this will improve. 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 Encouraged weekly/bi-weekly chiropractor visits to help calm the nervous system and staying aligned, this mat also help with constipation in . Reviewed safe medications to take in as well as natural approaches to stimulate a bowel. She is able to eliminate a little but doesn't feel like she completely empties. Thought she was having side pains from constipation, but it's suspected round ligament discomfort- reviewed comfort measures of this, the reason it happens and the normalcy. Is seeing a electronic engraver weekly, encouraged to keep doing so. Early 1 hr gtt done today= 134, patient indicated that she has eaten a lot of sweets this past week due to her birthday and her sisters birthday. It was encouraged to start baby ASA at 12 weeks, patient is taking it intermittently and taking Reishi mushroom spores encouraged by her straight cutter machine. Was feeling like her hgb was low- reviewed it being 13.7 and that this will be repeated at 28 weeks, started taking an Iron supplement and she states she does notice a difference and feels better. Reviewed this could be the cause of new onset of incomplete bowel emptying. Started drinking raspberry leaf tea, encouraged to discontinue use of this and start ~36 weeks gestation as it could potentially cause stimulation of uterine muscles. Spent a lot of time reviewing mental health and ways to decrease stress load avoiding increase stress, with the minor changes patient has made recently, hopefully she will regain some zia with herself to embrace the . EVETTE in 4 weeks at [facility] for anatomy U/S and EVETTE. Flowsheet Date 09/19/2021 Callahan Score Blood Edema Fundus Height Fundus Units Glucose Ketones Leukocytes Nitrite Labor Signs Protein Cervic Dilation Cervic Effacement Cervic Station 24 cm none Type Weight in lbs BP Diastolic BP Location Tested BP Systolic BP Type 62 118 Fetus Heart Rate Present A 152 Present Fetus Movement A Yes Comments R- Feeling well, no concerns . Told the family of the and that was a huge weight off her shoulders and she felt validation of her feelings of the . Has noticed some feet swelling when sitting for long period of times, resolved when awaken. Right ligament pain, reviewed comfort measures and encouraged more hydration as she has also been slightly constipated. Anatomy U/S reviewed and WNL, surprise gender! Denies PTL S/S, active baby. Discussed , desires a 1:1 class, will ask Kaila pino who may provide this education as well. 1ht gtt, labs next visit at [facility]. Flowsheet Date 11/02/2021 Callahan Score Blood Edema Fundus Height Fundus Units Glucose Ketones Leukocytes Nitrite Labor Signs Protein Cervic Dilation Cervic Effacement Cervic Station 30 cm none Type Weight in lbs BP Diastolic BP Location Tested BP Systolic BP Type 62 120 Fetus Heart Rate Present A 136 Present Fetus Movement A Yes Comments Presents alone for EVETTE at 30 weeks. Feeling well, trying real hard to consume more water as she feels better when she does. Averaging 1-1.5L/day. Encouraged 2-3L for uterine efficiency as she gets closer to expectant labor. Encouraged eliminating sweets and lower sodium intake as well. Monitored BS x 1 week per [facility]- Fasting BS 77-85 with 1hr PP having 1 elevation. Reviewed this with [facility] CNM service. She has been requested to have a growth U/S at 32 and 34 weeks and does not feel she needs both, so desires U/S at 34 weeks. Meeting alvarez next week, excited about that to prep for labor and . [id number] was diagnosed with uterine, liver and gall bladder cancer. She recently had surgery and soon will start Chemo- despite this stressor, Delmis feels she and partner are coping well. Plans to breastfeed. Tdap at [facility]. PTL S/S, kick counts reviewed. No concerns at this point- reviewed remainder of and visits. RTC in 2 weeks, then remainder of PNC at [facility] to preserve continuity. Flowsheet Date 11/15/2021 Callahan Score Blood Edema Fundus Height Fundus Units Glucose Ketones Leukocytes Nitrite Labor Signs Protein Cervic Dilation Cervic Effacement Cervic Station 33 wks none Type Weight in lbs BP Diastolic BP Location Tested BP Systolic BP Type 62 122 sitting Fetus Heart Rate Present A 136 Present Fetus Movement A Yes Comments R- Feeling well, no concerns . Had intermittent cramping x 2 days. Experiencing some constipation and has been busy at work, meaning potential dehydration. Mother in law starts chemo next week, this will be every 3 weeks. Family doing ok with this, Rod is advocating a lot of the cares. Met with the Account Review Specialist, discussed plan, and follow up care PP. Feels more prepared after discussing options for upcoming /labor. Plans to breastfeed. Reviewed comfort measures for uterine cramping: hydration, /maternal movement, regular BM, round ligament discomfort, and activity. Denies urinary symptoms. Lots of movement noted. RTC in 2 weeks at [facility]- watch fundal height. Continues to see chiropractor every 2 weeks and electronic engraver meetings. Last Hgb at 28 weeks= 11.8. Flowsheet Date 12/20/2021 Callahan Score Blood Edema Fundus Height Fundus Units Glucose Ketones Leukocytes Nitrite Labor Signs Protein Cervic Dilation Cervic Effacement Cervic Station 37 wks [place] Type Weight in lbs BP Diastolic BP Location Tested BP Systolic BP Type 66 112 Fetus Heart Rate Present A 144 Present Fetus Movement A Yes Comments Presents alone. Feeling over all well, over it as her sleep has become uncomfortable and she is experiencing bilateral foot swelling. Using oils in the morning and evening to help redistribute the fluid. Encouraged to drink more water, take baths and/or a pool to help with ligament and swelling. Will try this weekend. Discussed risk factors: nullip, AMA, obesity, 40 lb weight gain for potential complications. Reviewed warning S/S of GHTN/Pre-eclampsia: denies epigastric discomfort, RUQ discomfort, headaches or visual changes. B/P looks good. Discussed joint pain and comfort measures. Reviewed comfort measures of fluid retention. Discussed labor maneuvers, comfort positions for OP positioned baby. Baby OP per brandy with EFW ~ 3700 grams, very active baby and with body habitus, estimate was difficult. Still goes to electronic engraver and chiropractor every week, along with massage once/week. Does not feel ready for baby, but ready for to be done. Was able to obtain another electrician telephone, Sandra Brewer. No growth U/S at [facility], WNL. GBS negative. Remainder of EVETTE at [facility], will schedule for 1 week. Labor S/S reviewed. Flowsheet Date 02/27/2022 Callahan Score Blood Edema Fundus Height Fundus Units Glucose Ketones Leukocytes Nitrite Labor Signs Protein Cervic Dilation Cervic Effacement Cervic Station Type Weight in lbs BP Diastolic BP Location Tested BP Systolic BP Type 68 116 Fetus Heart Rate Present Fetus Movement Comments Menstrual History Last Menstrual Date Menses Monthly On Bcp Conception Prior Menses Frequency Hcg Plus Date Menarche Onset Age 1204/02/2021 30 Genetic Screening And Infection History Question Response Note Recent Travel History Outside of Country false Age Will Be 36 Years Or Olde r At Estimated Due Date true Thalassemia; MCV < 80 false Neural Tube Defect (Meningom yelocele, Spina Bifida, Or Anencephaly) false Family history of Congenital Heart Defect false Family history of Down Syndrome false Raul-Sachs false Sickle Cell Disease Or Trait false Hemophilia Or Other Bleeding Disorders false Family history of Muscular Dystrophy false Family history or Carrier of Cystic Fibrosis false Chelan's Chorea false Family history of Intellectu al disability/Autism false Inherited Genetic Or Chromosome Disease false Metabolic Disorder (eg, Type 1 Diabetes, PKU) false Either parent with def ect not already stated false Recurrent loss or history of stillbirth (>20 weeks) false Medications (including Suppl ements, Vitamins, Herbs, OTC Drugs) true Vitamin C, PNV + DHA, Elde rberry, Vitamin D3, baby asa Tuberculosis (TB) exposure false Genital Herpesvirus false Rash Or Viral Illness while false History of STI or recent PID false Prior GBS-infected child false Delivery Information Delivery Date Delivery Type Labor Anesthesia Weeks Gestation Incision Type Labor Labor Length Hrs Delivered By Post Complications Tubal Sterilization Discharge Date Comments 2 Induce d Regional-Ep idural 41.3 Low Transvers e 13 None 01/22/2022 IOL for postdates , developed pre-eclam psia. 1 week PP B/P WNL, Labetalol BID. Discharge Information Feeding Method Contraceptive Method Maternal HG B and HCT Levels Breast condoms 10.4
--- OUTSIDE RECORDS SUMMARY | 2024-02-04 14:57 | XMS_ITS | Continuity of Care Document ---
Author Organization [place] [facility], [facility] Address [address] [place] [address] [place] [address] Assessment Encounter Date Assessment Date Assessment LastModified by Organization Details LastModified Time 12/11/2023 12/11/2023 1. EVETTE at 28.1 weeks gestation. 2. Obesity. - Reviewed blood sugars, 8 elevations = 65% compliance. Encouraged to continue QID blood sugars until next CNM visit at [facility]. - Discussed nutrition/hydra tion in 3rd trimester. - Declines Tdap after informed discussion. - CBC/Ferritin obtained today. - Discussed park interpretive specialist services, past trauma and mood stabilization. Reviewed 1st 40 days nutrition. - RTC in [facility] [place] in 2 weeks. Time spent face to face for routine ob in third trimester and coordinating a plan of care was 60 minutes. [email or web address] Not available 12/11/2023 11:40:52 Plan of Treatment Reminders Order Date Submit Date Provider Last Modified By Organization Details Last Modified Time Details Appointments None recorded . Lab ferritin , serum or plasma 024 12/11/19 [facility], [address] [place], [address], 4 05:26:38 CBC 024 12/11/19 [facility], [address] [place], [address], 4 05:26:37 Referral None recorded . Procedures None recorded . Surgeries None recorded . Imaging None recorded . Medication Orders None recorded . Patient TargetsNo targets recorded. Patient InstructionsNo instructions recorded. Reason for Referral None Reported. Problems Name Problem SNOMED Code Status Onset Date Resolution Date Notes Provider Name and Address Organization Details Recorded Time Pregnanc y 14135902 Active 2023 Shared model of care with Avni Hagan APRN, CNM, VINEET [address] [place] [address], [place], [address] , [place] - [facility] 4 17:46:56 Obesity 702196527 Active 2021 Has a nutritio nist she meets once/mitul marquez HgbA1c per NOB= 5.1% Vladimir Hagan APRN, CNM, VINEET [address] [place] [address], [place], [address] , [place] - [facility] 4 17:46:55 Past pregnanc y history of section 463037695 Active Desires TOLAC Vladiimr Hagan APRN, CNM, VINEET [address] [place] [address], [place], [address] , [place] - [facility] 4 17:46:55 Past pregnanc y history of pre-ecla mpsia 03663445822 9100 Active 202111/19/23 : Reviewed BL labs, WNL. Reviewed increase d risk factor for CVD, diabetes , autoimmu ne d/o later in life. [facility] ed baby ASA, to initiate 12-16 weeks. Develope d at 41.3 weeks gestatio n with IOL. [facility] ed to add BL pre-ecla mptic labs to NOB. Vladimir Hagan APRN, CNM, VINEET [address] [place] [address], [place], [address] , [place] - [facility] 4 14:30:37 Pregnanc y 34093743 Active 2023 Shared model of care with Avni Hagan APRN, CNM, VINEET [address] [place] [address], [place], [address] , [place] - [facility] 4 17:46:56 Past pregnanc y history of pre-ecla mpsia 88440805676 9100 Active 202111/19/23 : Reviewed BL labs, WNL. Reviewed increase d risk factor for CVD, diabetes , autoimmu ne d/o later in life. [facility] ed baby ASA, to initiate 12-16 weeks. Develope d at 41.3 weeks gestatio n with IOL. [facility] ed to add BL pre-ecla mptic labs to NOB. Vladimir Hagan APRN, CNM, WILLIAM [address] [place] [address], [phone] , [facility] 4 14:30:37 Mixed anxiety and depressi ve disorder 737283594 Active 2021 Not Available [facility] 4 20:08:33 Obesity 893243497 Active 2021 Has a nutritio nist she meets once/mitul marquez HgbA1c per NOB= 5.1% Vladimir Hagan APRN, CNM, VINEET [address] [place] [address], [phone] , [facility] - [facility] 4 17:46:55 Pregnanc y 63053506 Completed 202102/27/2022 Shared model of care with [facility] service. NOB labs complete d at [facility]- reviewed . 12/20- Has park interpretive specialist- Vladimir Hagan APRN, CNM, [facility] [address] [place] [address], [phone] , [facility] 4 11:06:26 Problem Notes None recorded. Procedures Surgical History Date Name Laterality Status Provider Name and Address Organization Details Recorded Time 2 Date of Last Pap Smear completed Not Available [facility] 08/06/2023 20:07:34 extraction of wisdom tooth completed Not Available [facility] 08/06/2023 20:06:47 Imaging Results None recorded. Procedure Notes None recorded. Medical Equipment None Reported. Allergies Allergen ID Allergen Name Allergen Category Reaction Reaction Severity Criticality Documentation Date Start Date Code Code System Note Provider Name and Address Organization Details Recorded Time 301 adhesive tape environme nt,medica tion itching Not available low 08/28/2023 ALEENA DUEÑAS, RN [address] , [place], [address], [facility] - [facility] 10:23:10 Medications Name Sig Start Date Stop [...] Available Not Avail able Not Available zinc 0,53842 active Not Available Not Avail able Not [...] Available Not Available Vitals Date Recorded Body height Provider Name an d Address Organization Details Last Updated DateTime 12/11/2023 157.48 cm Vladimir giles, ICT SUPPORT ENGINEER, CNM, WHNP [address], [place], [address], [place] - [facility] 12/11/2023 10:09:24 Date Recorded Body mass index (BMI) Body weight Systolic blood pressure Diastolic blood pressure Provider Name and Address Organization Details Last Updated DateTime 12/11/2023 52.3 kg/m2 781075.42 g 120 mm[Hg] 74 mm[Hg] ALEENA DUEÑAS, RN [address] , [place], [address] , [place] - [facility] 12/11/2023 10:17:53 Social History Question Answer Notes LastModified by Organizat ion Details LastModified Time Tobacco Smoking Status Never Smoker Not Available [facility] 08/06/2023 20:06:58 What Is Your Level Of Alcohol Consumption? Moderate Pre-pregnanc y MIGRATION.77386 10517 Information not available 08/06/2023 Are You Blind Or Do You Have Difficulty Seeing? No MIGRATION.29321 44818 Information not available 08/06/2023 Are You Currently Employed? Yes MIGRATION.96078 37968 Information not available 08/06/2023 Are You Deaf Or Do You Have Serious Difficulty Hearing? No MIGRATION.58076 32028 Information not available 08/06/2023 What Type Of Diet Are You Following? REGULAR MIGRATION.90914 51422 Information not available 08/06/2023 What Is The Highest Grade Or Level Of School You Have Completed Or The Highest Degree You Have Received? [id number] MIGRATION.61459 32589 Information not available 08/06/2023 Have You Been Exposed To Chemicals Or Toxins? No MIGRATION.85091 95838 Information not available 08/06/2023 Have You Been Exposed To Heavy Metals? No MIGRATION.86103 10492 Information not available 08/06/2023 Have There Been Any Changes To Your Family Or Social Situation? No MIGRATION.89290 08975 Information not available 08/06/2023 Do You Have Any Transportation Challenges? No MIGRATION.56957 27485 Information not available 08/06/2023 Do You Have Enough Food To Eat? Yes MIGRATION.83657 89155 Information not available 08/06/2023 Do You Have People In Your Life You Can Reach Out To For Help Yes MIGRATION.42750 89182 Information not available 08/06/2023 Have You Ever Experienced Abuse From Family Members, Friends, Past Relationships, Etc? No MIGRATION.23069 63218 Information not available 08/06/2023 Have You Ever Been Hit/kicked/slappe d Or Raped In Your Current Relationship? No MIGRATION.46566 36239 Information not available 08/06/2023 Have You Been Exposed To Heavy Metals? No [email or web address] Information not available 08/28/2023 Have You Been Exposed To Chemicals Or Toxins? No [email or web address] Information not available 08/28/2023 Do You Experience Mental Or Emotional Abuse In Your Current Relationship? No MIGRATION.37450 29432 Information not available 08/06/2023 Are You A Survivor Of Abuse? No MIGRATION.25626 09927 Information not available 08/06/2023 What Is Your Relationship Status? Domestic Partner MIGRATION.17956 46698 Information not available 08/06/2023 Are You Sexually Active? Yes MIGRATION.13652 94193 Information not available 08/06/2023 Are You Passively Exposed To Smoke? Yes Childhood MIGRATION.57502 08512 Information not available 08/06/2023 Do You Feel Stressed (tense, Restless, Nervous, Or Anxious, Or Unable To Sleep At Night)? [id number] MIGRATION.58239 35469 Information not available 08/06/2023 Do You Use Any Illicit Or Recreational Drugs? No MIGRATION.72833 80136 Information not available 08/06/2023 Do You Have Any Dietary Restrictions? No [email or web address] Information not available 08/28/2023 Do You Or Have You Ever Used Any Other Forms Of Tobacco Or Nicotine? No MIGRATION.79189 01554 Information not available 08/06/2023 Sex: Unknown Functional Status Question Answer Note LastModified by Organizat ion Details LastModified Time Do you have difficulty walking or climbing stairs? No MIGRATION.3811573 000 Information not available 08/06/2023 Do you have transportation difficulties? No MIGRATION.0542208 000 Information not available 08/06/2023 What is your exercise level? Moderate MIGRATION.0754550 000 Information not available 08/06/2023 Mental Status Question Answer Note LastModified by Organizat ion Details LastModified Time Do you have difficulty concentrating, remembering or making decisions? No MIGRATION.554408874 0 Information not available 08/06/2023 Family History Relationship Description Onset Age of this Age Resolved Age Notes LastModified by Organization Details LastModified Time Sister Polycystic ovary syndrome [id number] Not available 08/06/2023 20:07:42 Medical History Condition Response Allergies (Food, seasonal, environmental ) Y Heart Problems N Kidney or Bladder Problems N Thyroid Problems N Lung Disease N Dermatologic Disorders N GI Problems Y Acne N Eating Disorder N Breast Problem N Gestational Diabetes N Anemia N Hematologic [...] Diagnosis/Indication Diagnosis SNOMED-CT Code Diagnosis ICD10 Code 3942 Vladimir Hagan APRN, CNM, WHNP [facility] [address] [place] [phone] 11/19/2023 14:05:29 11/19/2023 15:13:57 Routine care 121577133 Z34.82 O99.212 Z3A.25 4241 Vladimir Hagan APRN, CNM, WHNP [facility] [address] [place] [phone] 12/11/2023 09:54:06 12/11/2023 11:42:27 Routine care 422415646 Z34.83 Z3A.28 O99.213 Health Concerns Section Related Observation LastModified by Organization Detai ls LastModified Time None Recorded Concern Status LastModified by Organization Details LastModified Time None Recorded Payers Encounter Date Sequence Insurance Name Policy Number Policy Alvarez Covered Member ID Alvarez Member ID Guarantor Name 12/11/2023 1 [place] [id number] Rosie Stein [id number] Notes Date Note Type Note Provider Name and Address Organization Details Recorded Time 12/11/2023 text/html HPI Notes: Presents alone for EVETTE at 28.1 weeks gestation. Feeling well, no concerns. 1hr gtt/labs today, declines 1hr gtt and desired QID testing. Reviewed 1 week of blood sugars and are in 65 % compliance. Encouraged to test x 1 more week and verify with [facility] their compliance parameters. Patient has struggled with a GI virus this past week, so feels her nutrition has not been optimal, very motivated to facilitate her health regimen moving forward. Has been having an increase in anxious feelings regarding previous trauma and currently entering the 3rd trimester. Is able to identify triggers and openly processes this. Mood stable overall. Interested in the first 40 days nutritional guidance. Reviewed standards and offered book to take home. Plans to invest in book and connect with District Plant Superintendent for preparation. CBC/Ferritin today. Rh positive. Encouraged next visit with midwives in [place] to discuss: blood sugars, anxious feelings regarding previous trauma, and facilitate park interpretive specialist connection. Vladimir Hagan APRN, CNLázaro, WHNP [address] [place] [address], [phone], [place] - [facility] 12/11/2023 11:42:24 OBGyn Episode Ob Episode Information Episode Created Date Number of Fetuses Patient Bloodtype Patient rh Status Prepregnancy Weight lbs Domestic Partner Domestic Partner Phone Father Name General Assistant Status 08/28/19 24 1 A Positive 270 Rod OPEN Fetus Data First Name Last Name Admitted to NICU Weight (g) Sex Living Outcome Pediatric Complications Fetus ID Race Codes Race Delivery Type 201 Problems Problem Notes Problem Name Start Date End Date Resolution Snomed Code Not e Past history of pre-eclampsia 02/27/2022 [id number] 11/19/23: R nelawed BL labs, WNL. Reviewed increased risk factor for CVD, diabetes, autoimmune d/o later in life. Encouraged baby ASA, to initiate 12-16 weeks. Developed at 41.3 weeks gestation with IOL.Encouraged to add BL pre-eclamptic labs to NOB. 08/28/2023 [id number] Shared mo del of care with [facility] Obesity 12/20/2021 772910523 Has a nut ritionist she meets once/week. HgbA1c per NOB= 5.1% Past history of section 332499539 Desires CRYSTAL AC Keith Calculation Initial Keith [...] Is planning shared model of care with [facility] as she risks out of care d/t previous C/S, obesity (BMI=50) and hx/o pre-eclampsia. Encouraged baby ASA as she is not currently taking it. Also encouraged for [facility] to add BL pre-eclamptic labs and a TSH (with topical iodine use) to assure stability. Patient to [facility] cma and will return to [facility] for lab draws. Offered to draw labs here, but desires [facility] as she will deliver there. Discussed previous [...] child or complications Continues chiro care and produce specialist care. Anatomy U/S with CNM visit already scheduled at [facility] in 4 weeks. Still needs to complete BL pre-eclamptic labs and 24 hr urine. Plans to pick this up this week. Flowsheet Date 11/19/2023 Callahan Score Blood Edema Fundus Height Fundus Units Glucose Ketones Leukocytes Nitrite Labor Signs Protein Cervic Dilation Cervic Effacement Cervic Station 26 cm none Type Weight in lbs BP Diastolic BP Location Tested BP Systolic BP Type 70 112 Fetus Heart Rate Present A 136 Present Fetus Movement A Yes Comments Presents alone for EVETTE at 25 weeks gestation. Feeling well, no concerns. Reviewed anatomy U/S, and level 2/MFM visit- WNL; surprise gender! BL pre-eclamptic labs obtained, WNL- no concerns. Decided to opt out of taking Baby ASA, midwives ok with this via [facility]. Still going to chiropractor. Discussed repeat C/S vs IOL vs natural labor/. Plans on same park interpretive specialist for support as last . Will decline 1hr gtt, has supplies for QID testing and plans to start at 27 weeks and we will review at 28 weeks and will do labs at that time. Will decline Tdap- CNM in [place] ok with this shared care. Mood stable, overall doing really well. Flowsheet Date 12/11/2023 Callahan Score Blood Edema Fundus Height Fundus Units Glucose Ketones Leukocytes Nitrite Labor Signs Protein Cervic Dilation Cervic Effacement Cervic Station 29 cm none Type Weight in lbs BP Diastolic BP Location Tested BP Systolic BP Type 74 120 Fetus Heart Rate Present A 133 Present Fetus Movement A Yes Comments Presents alone for EVETTE at 28 .1 weeks gestation. Feeling well, no concerns. 1hr gtt/labs today, declines 1hr gtt and desired QID testing. Reviewed 1 week of blood sugars and are in 65 % compliance. Encouraged to test x 1 more week and verify with [facility] their compliance parameters. Patient has struggled with a GI virus this past week, so feels her nutrition has not been optimal, very motivated to facilitate her health regimen moving forward. Has been having an increase in anxious feelings regarding previous trauma and currently entering the 3rd trimester. Is able to identify triggers and openly processes this. Mood stable overall. Interested in the first 40 days nutritional guidance. Reviewed standards and offered book to take home. Plans to invest in book and connect with District Plant Superintendent for preparation. CBC/Ferritin today. Rh positive. Encouraged next visit with midwives in [place] to discuss: blood sugars, anxious feelings regarding previous trauma, and facilitate park interpretive specialist connection. Flowsheet Date 01/22/2024 Callahan Score Blood Edema Fundus Height Fundus Units Glucose Ketones Leukocytes Nitrite Labor Signs Protein Cervic Dilation Cervic Effacement Cervic Station 34 cm none Type Weight in lbs BP Diastolic BP Location Tested BP Systolic BP Type 78 110 Fetus Heart Rate Present A 136 Present Fetus Movement A Yes Comments Presents alone for routine O B at 34.1 weeks gestation. Feeling well, no concerns. Was seen in [place] last visit, went well. Discussed BS parameters, within normal limits and was able to connect with District Plant Superintendent, encouraged to discuss and prepare for upcoming related to past trauma. Feels in a good place with these discussions. Mood stable. Reviewed PTL S/S and when to f/u with [facility]. GBS next visit and OB consult for . Menstrual History Last Menstrual Date Menses Monthly On Bcp Conception Prior Menses Frequency Hcg Plus Date Menarche Onset Age 0205/28/2023 true 30 Genetic Screening And Infection History Question Response Note Patient's Age Will Be 35 Yea rs Or Older At Estimated Date of Delivery true Thalassemia (Yi, Uzbek, Mediterranean, Or Background): MCV < 80 false Neural Tube Defect (Meningom yelocele, Spina Bifida, Or Anencephaly) false Congenital Heart Defect false Down Syndrome false Raul-Sachs (eg, Anglican, Cajun , Bulgarian-Buchanan) false Ritesh Disease false Sickle Cell Disease Or Trait () false Hemophilia Or Other Blood Disorders false Muscular Dystrophy false Cystic Fibrosis false [place]'s Chorea false Intellectual Disability/Autism false If Yes, [...] Or Carrier false Other Structural Defect false Plans and Education First Trimester Discussed Date Discussion Item Discussion Note Discuss ed By Second Trimester Discussed Date Discussion Item Discussion Note Discuss ed By 12/11/2023 Initial Labs Offered/Reviewed [place] [id number] 12/11/2023 CBE [place] [address] 12/11/2023 Nutrition/Hydration reassessment done [place] [address] 12/11/2023 Selecting a care provider [place] [address] 12/11/2023 Free from intimate partner violence [place] [address] Third Trimester Discussed Date Discussion Item Discussion Note Discuss ed By 12/11/2023 Signs and symptoms o f preeclampsia [place] [address] 12/11/2023 [place] [address] 01/22/2024 Benefits of park interpretive specialist/referrals [place] [address] 01/22/2024 Discussion regarding plan Discussed- review with District Plant Superintendent [place] [address] 12/11/2023 TDaP offered (ration melanie, R/B/A, VIS provided) Declined after informed discussion [place] [address] 12/11/2023 Problem List Updated [place] [id number] 12/11/2023 Reviewed required CB C, drawn between 24-30 weeks [place] [address] 01/22/2024 S/sx of labor, when to call, clinic cma automation qa analyst #. [place] [address] 12/11/2023 Nutrition/Hydration reassessment done [place] [address] 12/11/2023 movement monitoring [place] [address] 01/22/2024 RSV vaccine offered 32-26 wks Declined [place] [address] Delivery Information Delivery Date Delivery Type Labor Anesthesia Weeks Gestation Incision Type Labor Labor Length Hrs Delivered By Post Complications Tubal Sterilization Discharge Date Comments Discharge Information Feeding Method Contraceptive Method Maternal HG B and HCT Levels
--- OUTSIDE RECORDS SUMMARY | 2024-02-04 14:57 | XMS_ITS | Encounter Summary ---
Author Organization [place] Address [facility] [place] [address] Care Team Providers Care Documentation Clerk Name Role Phone Sh Non-Fv Uc Provider, Radiology Primary Care Pr ovider Unavailable Reason for Visit * Reason Comments Ultrasound L2-BMI, AMA, incompl ete views on anatomy scan Encounter Details Date Type Department Care Team (Late st Contact Info) Description 10/28/2023 2:00 PM CDT Office Visit [facility] [place] [address] [facility] [address] [place] [address] Calista Van APRN [facility] [address] [place] [address] Marbin Fuller MD [address] [facility] [address] [place] [address] Obesity affecting in second trimester, [...] for details of today's US at the [facility]. Marbin Fuller MD Maternal- Medicine documented in this encounter Plan of Treatment Not on file documented as of this encounter Visit Diagnoses Diagnosis Obesity affecting in second trimester, unspecified obesity type- Primary documented in this encounter Care Teams Documentation Clerk Relationship Specialty Start Date End Date Sh Non-Fv Uc Provider, Radiology PCP - General 10/24/23 documented as of this encounter
--- OUTSIDE RECORDS SUMMARY | 2024-02-04 14:57 | XMS_ITS | Encounter Summary ---
Author Organization [facility] Address [address] [place] [address] Care Team Providers Care Manager Nicu Name Role Phone Sh Non-Fv Uc Provider, Radiology Primary Care Pr ovider Unavailable Reason for Visit * Reason Comments Ultrasound L2-AMA, BMI, incompl ete heart views Encounter Details Date Type Department Care Team (Late st Contact Info) Description 10/27/2023 PRE VISIT [facility] [place] [address] [facility] [address] [place] [address] Roshni Saucedo, DANNA Ultrasound (L2-AMA, [...] on filedocumented in this encounter Care Teams Manager Nicu Relationship Specialty Start Date End Date Non-Fv Uc Provider, Radiology PCP - General 10/24/23 documented as of this encounter
== END 2024-02-03 11:36 | disposition home or self-care (01) ==
LOC: NFLDREF 02-04 14:55
PROVIDERS: Visit Provider Obstetrics & Gynecology
DX: Z34.93 Encounter for supervision of normal pregnancy, unspecified, third trimester (principal); Z3A.35 35 weeks gestation of pregnancy
CPT/HCPCS: 87081; 87653

== ENCOUNTER 2024-02-17 12:08 | Outpatient (CLI) | payer BC, SELFPAY ==
--- OUTSIDE RECORDS SUMMARY | 2024-02-17 12:10 | XMS_ITS | Referral Summary ---
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
--- OUTSIDE RECORDS SUMMARY | 2024-02-17 12:10 | XMS_ITS | Clinical Summary ---
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
--- OUTSIDE RECORDS SUMMARY | 2024-02-17 12:11 | XMS_ITS | Continuity of Care Document ---
Author Organization [place] - [facility], [facility] - Main Office Address [address] [place] [address] BORIS DOMINGUEZ [address] Assessment Encounter Date Assessment Date Assessment LastModified by Organization Details LastModified Time 01/22/2024 01/22/2024 1. EVETTE at 34.1 weeks gestation. - Reviewed PTL S/S and when to f/u with OCMW. - GBS next visit in 2 weeks with OB consult. Time spent face to face for routine 3rd trimester care and coordinating a plan of care was 40 minutes. [email or web address] Not available 01/22/2024 12:56:12 Plan of Treatment Reminders Order Date Submit [...] Address Organization Details Recorded Time Pregnanc y 62066630 Active 2023 Shared model of care with Avni Hagan APRN, OLIVIA, WHNP [address] [place] [address] [place], [address] , [place] - [facility] 4 17:46:56 Obesity 434306465 Active 2021 Has a nutritio nist she meets once/mitul marquez HgbA1c per NOB= 5.1% Vladimir Hagan APRN, OLIVIA, WHNP [address] [place] [address] [place], [address] , [facility] - [facility] 4 17:46:55 Past pregnanc y history of section 249477814 Active Desires TOLAC Vladimir Hagan APRN, CNM, [facility] [address] [place] [address], [address] , [facility] 4 17:46:55 Past pregnanc y history of pre-ecla mpsia 95591962658 9100 Active 202111/19/23 : Reviewed BL labs, WNL. Reviewed increase d risk factor for CVD, diabetes , autoimmu ne d/o later in life. [facility] ed baby ASA, to initiate 12-16 weeks. Develope d at 41.3 weeks gestatio n with IOL. [facility] ed to add BL pre-ecla mptic labs to NOB. Vladimir Hagan APRN, CNM, WILLIAM [address] [place] [address], [place], [address] , [facility] - [facility] 4 14:30:37 Pregnanc y 32123487 Active 2023 Shared model of care with Avni Hagan APRN, CNM, VINEET [address] [place] [address], [place], [address] , [facility] 4 17:46:56 Past pregnanc y history of pre-ecla mpsia 10068269607 9100 Active 202111/19/23 : Reviewed BL labs, WNL. Reviewed increase d risk factor for CVD, diabetes , autoimmu ne d/o later in life. [facility] ed baby ASA, to initiate 12-16 weeks. Develope d at 41.3 weeks gestatio n with IOL. [facility] ed to add BL pre-ecla mptic labs to NOB. Vladimir Hagan APRN, CNM, VINEET [address] [place] [address], [place], [address] , [facility] 4 14:30:37 Mixed anxiety and depressi ve disorder 129693446 Active 2021 Not Available [facility] 4 20:08:33 Obesity 512864147 Active 2021 Has a nutriviola martini she meets once/mitul marquez HgbA1c per NOB= 5.1% Vladimir Hagan APRN, OLIVIA, WHNP [address] [place] [address], [place], [address] , [facility] - [facility] 4 17:46:55 Pregnanc y [id number] Completed 202102/27/2022 Shared model of care with [facility]. NOB labs complete d at [facility]- reviewed . 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 Procedures Surgical History Date Name Laterality Status Provider Name and Address Organization Details Recorded Time 2 Date of Last Pap Smear completed Not Available [facility] 08/06/2023 20:07:34 extraction of wisdom tooth completed Not Available [facility] 08/06/2023 20:06:47 Imaging Results None recorded. Procedure Notes None recorded. Medical Equipment None Reported. Allergies Allergen ID Allergen Name Allergen Category Reaction Reaction Severity Criticality Documentation Date Start Date Code Code System Note Provider Name and Address Organization Details Recorded Time 301 adhesive tape environme nt,medica tion itching Not available low 08/28/2023 ALEENA DUEÑAS RN [address] [facility], [place], [address], [facility] - [facility] 4 10:23:10 Medications Name [...] Available Not Avail able Not Available zinc 0,45401 active Not Available Not Avail able Not [...] Not Available Vitals Date Recorded Body height Body mass index (BMI) Body weight Systolic blood pressure Diastolic blood pressure Provider Name and Address Organization Details Last Updated DateTime 01/22/2024 157.48 cm 52.7 kg/m2 864565.6 g 110 mm[Hg] 78 mm[Hg] ALEENA DUEÑAS, RN [address] [place], [address], [place] - [facility] 12:05:32 Social History Question Answer Notes LastModified by Organizat ion Details LastModified Time Tobacco Smoking Status Never Smoker Not Available [facility] 08/06/2023 20:06:58 What Is Your Level Of Alcohol Consumption? Moderate Pre-pregnanc y MIGRATION.75252 73138 Information not available 08/06/2023 Are You Blind Or Do You Have Difficulty Seeing? No MIGRATION.29826 71097 Information not available 08/06/2023 Are You Currently Employed? Yes MIGRATION.79595 63360 Information not available 08/06/2023 Are You Deaf Or Do You Have Serious Difficulty Hearing? No MIGRATION.93359 54497 Information not available 08/06/2023 What Type Of Diet Are You Following? REGULAR MIGRATION.36515 24496 Information not available 08/06/2023 What Is The Highest Grade Or Level Of School You Have Completed Or The Highest Degree You Have Received? UC31900-4 MIGRATION.18462 41985 Information not available 08/06/2023 Have You Been Exposed To Chemicals Or Toxins? No MIGRATION.23274 74086 Information not available 08/06/2023 Have You Been Exposed To Heavy Metals? No MIGRATION.92410 41220 Information not available 08/06/2023 Have There Been Any Changes To Your Family Or Social Situation? No MIGRATION.21274 75697 Information not available 08/06/2023 Do You Have Any Transportation Challenges? No MIGRATION.54412 86148 Information not available 08/06/2023 Do You Have Enough Food To Eat? Yes MIGRATION.42691 95796 Information not available 08/06/2023 Do You Have People In Your Life You Can Reach Out To For Help Yes MIGRATION.49878 92564 Information not available 08/06/2023 Have You Ever Experienced Abuse From Family Members, Friends, Past Relationships, Etc? No MIGRATION.05039 87180 Information not available 08/06/2023 Have You Ever Been Hit/kicked/slappe d Or Raped In Your Current Relationship? No MIGRATION.98821 99049 Information not available 08/06/2023 Have You Been Exposed To Heavy Metals? No [email or web address] Information not available 08/28/2023 Have You Been Exposed To Chemicals Or Toxins? No Information not available 08/28/2023 Do You Experience Mental Or Emotional Abuse In Your Current Relationship? No MIGRATION.83552 23115 Information not available 08/06/2023 Are You A Survivor Of Abuse? No MIGRATION.92096 24457 Information not available 08/06/2023 What Is Your Relationship Status? Domestic Partner MIGRATION.23548 72351 Information not available 08/06/2023 Are You Sexually Active? Yes MIGRATION.88728 27953 Information not available 08/06/2023 Are You Passively Exposed To Smoke? Yes Childhood MIGRATION.73459 68630 Information not available 08/06/2023 Do You Feel Stressed (tense, Restless, Nervous, Or Anxious, Or Unable To Sleep At Night)? [id number] MIGRATION.57884 76354 Information not available 08/06/2023 Do You Use Any Illicit Or Recreational Drugs? No MIGRATION.30833 16443 Information not available 08/06/2023 Do You Have Any Dietary Restrictions? No [email or web address] Information not available 08/28/2023 Do You Or Have You Ever Used Any Other Forms Of Tobacco Or Nicotine? No MIGRATION.46658 38770 Information not available 08/06/2023 Sex: Unknown Functional Status Question Answer Note LastModified by Organizat ion Details LastModified Time Do you have difficulty walking or climbing stairs? No MIGRATION.3371287 000 Information not available 08/06/2023 Do you have transportation difficulties? No MIGRATION.9385929 000 Information not available 08/06/2023 What is your exercise level? Moderate MIGRATION.1383355 000 Information not available 08/06/2023 Mental Status Question Answer Note LastModified by Organizat ion Details LastModified Time Do you have difficulty concentrating, remembering or making decisions? No MIGRATION.[id number] 0 Information not available 08/06/2023 Family History Relationship Description Onset Age of this Age Resolved Age Notes LastModified by Organization Details LastModified Time Sister Polycystic ovary syndrome MIGRATION.689 [id number] Not available 08/06/2023 20:07:42 Medical History Condition [...] Eczema N Abuse/Domestic Violence N Asthma N Trauma/Violence N Endometriosis N High Cholesterol N Depression/ depression Y [...] Diagnosis/Indication Diagnosis SNOMED-CT Code Diagnosis ICD10 Code 4705 Vladimir Hagan, PROPERTY CLAIMS MANAGER, CNM, WHNP [facility] [address] [facility] [place] [address] 01/22/2024 11:53:29 02/12/2024 15:59:54 Routine care [id number] Z34.83 O99.213 Z3A.34 Health Concerns Section Related Observation LastModified by Organization Detai ls LastModified Time None Recorded Concern Status LastModified by Organization Details LastModified Time None Recorded Payers Encounter Date Sequence Insurance Name Policy Number Policy Alvarez Covered Member ID Alvarez Member ID Guarantor Name 01/22/2024 1 [place] [id number] Rosie Stein [id number] Notes Date Note Type Note Provider Name and Address Organization Details Recorded Time 01/22/2024 text/html HPI Notes: Presents alone for routine OB at 34.1 weeks gestation. Feeling well, no concerns. Was seen in [place] last visit, went well. Discussed BS parameters, within normal limits and was able to connect with First Grade Teacher, encouraged to discuss and prepare for upcoming related to past trauma. Feels in a good place with these discussions. Mood stable. Reviewed PTL S/S and when to f/u with OCMW. GBS next visit and OB consult for . Vladimir Hagan, ATTILA, CNM, WHNP [address] [place] [address], [place], [address], [place] - [facility] 01/22/2024 12:56:50 OBGyn Episode Ob Episode Information Episode Created Date Number of Fetuses Patient Bloodtype Patient rh Status Prepregnancy Weight lbs Domestic Partner Domestic Partner Phone Father Name Baker Pastry Status 08/28/19 24 1 A Positive 270 Rod OPEN Fetus Data First Name Last Name Admitted to NICU Weight (g) Sex Living Outcome Pediatric Complications Fetus ID Race Codes Race Delivery Type 201 Problems Problem Notes Problem Name Start Date End Date Resolution Snomed Code Not e Past history of pre-eclampsia 02/27/2022 [id number] 11/19/23: Luis edmond BL labs, WNL. Reviewed increased risk factor for CVD, diabetes, autoimmune d/o later in life. Encouraged baby ASA, to initiate 12-16 weeks. Developed at 41.3 weeks gestation with IOL.Encouraged to add BL pre-eclamptic labs to NOB. 08/28/2023 [id number] Shared mo del of care with [place] Obesity 12/20/2021 [id number] Has a nut ritionist she meets once/week. HgbA1c per NOB= 5.1% Past history of section 575233960 Desires CRYSTAL AC Keith Calculation Initial Keith [...] Gestation 0 [email or web address] 08/28/2023 03/03/20 24 0 Pre-cody Flowsheet Flowsheet Date 08/28/2023 Callahan Score Blood [...] Is planning shared model of care with [place] as she risks out of care d/t previous C/S, obesity (BMI=50) and hx/o pre-eclampsia. Encouraged baby ASA as she is not currently taking it. Also encouraged for [place] to add BL pre-eclamptic labs and a TSH (with topical iodine use) to assure stability. [place] [facility] [place] and will return to [place] for lab draws. Offered to draw labs here, but desires [place] as she will deliver there. Discussed previous [...] child or complications Continues chiro care and city constable care. Anatomy U/S with CNM visit already scheduled at [place] in 4 weeks. Still needs to complete [...] Baby ASA, midwives ok with this via [place]. Still going to chiropractor. Discussed repeat C/S vs IOL vs natural labor/. Plans on same warehouse worker for support as last . Will decline 1hr gtt, has supplies for QID testing and plans to start at 27 weeks and we will review at 28 weeks and will do labs at that time. Will decline Tdap- CNM in [place] ok with this shared care. Mood stable, [...] Movement A Yes Comments Presents alone for EVETET at 28 .1 weeks gestation. Feeling well, no concerns. 1hr gtt/labs today, declines 1hr gtt and desired QID testing. Reviewed 1 week of blood sugars and are in 65 % compliance. Encouraged to test x 1 more week and verify with [place] their compliance parameters. Patient has struggled with [...] to invest in book and connect with First Grade Teacher for preparation. CBC/Ferritin today. Rh positive. Encouraged next visit with midwives in [place] to discuss: blood sugars, anxious feelings regarding previous trauma, and facilitate warehouse worker connection. Flowsheet Date 01/22/2024 Callahan Score Blood [...] Feeling well, no concerns. Was seen in [place] last visit, went well. Discussed BS parameters, within normal limits and was able to connect with First Grade Teacher, encouraged to discuss and prepare for upcoming related to past trauma. Feels in a good place with these discussions. Mood stable. Reviewed PTL S/S and when to f/u with OCMW. GBS next visit and OB consult for . Flowsheet Date 02/12/2024 Callahan Score Blood Edema Fundus Height Fundus Units Glucose Ketones Leukocytes Nitrite Labor Signs Protein Cervic Dilation Cervic Effacement Cervic Station Type Weight in lbs BP Diastolic BP Location Tested BP Systolic BP Type 78 120 sitting Fetus Heart Rate Present A 132 Present Fetus Movement A Yes Comments Presents alone for routine o b at 37.1 weeks gestation. Feeling quite well, no concerns. GBS in [place]- reviewed this was negative. Had an OB consult d/t TOLAC, has had time to process this information and is struggling to process the risks vs benefits. Most of the visit was debriefing and revisiting past trauma, she is able to identify triggers but is having a hard time with acceptance of risks associated with this . Discussed mental preparation, being graceful with her thoughts and normalizing discussing trauma. Formulated some thoughts and plans to boost mental preparation and encouraged to continue these discussions with providers, partner and warehouse worker. Established good rapport with alvarez, who has been a great support for her. Desired to discuss TOLAC consent, as this conversation terrified her. Walked through consent form with stopping to discuss fears associated with this, talked this through. Extended praises for her efforts to mentally prepare and accept the circumstances as the ultimate goal is to have a safe and healthy mother and baby. Resume remainder of [facility] in [place]. Mood stable. Menstrual History Last Menstrual Date Menses Monthly On Bcp Conception Prior Menses Frequency Hcg Plus Date Menarche Onset Age 0205/28/2023 true 30 Genetic Screening And Infection History Question Response Note Patient's Age Will Be 35 Yea rs Or Older At Estimated Date of Delivery true Thalassemia (Vietnamese, Thai, Mediterranean, Or Background): MCV < 80 false Neural Tube Defect (Meningom yelocele, Spina Bifida, Or Anencephaly) false Congenital Heart Defect false Down Syndrome false Raul-Sachs (eg, Protestant, Cajun , Portuguese-Mclennan) false Ritesh Disease false Sickle Cell Disease Or Trait () false Hemophilia Or Other Blood Disorders false Muscular Dystrophy false Cystic Fibrosis false [place]'s Chorea false Intellectual Disability/Autism false If Yes, [...] Discuss ed By 12/11/2023 Initial Labs Offered/Reviewed [place] [address] 12/11/2023 CBE [place] [address] 12/11/2023 Nutrition/Hydration reassessment done [place] [address] 12/11/2023 Selecting a care provider [email or web address] 12/11/2023 Free from intimate partner violence [place] [address] Third Trimester Discussed Date Discussion Item Discussion Note Discuss ed By 12/11/2023 Signs and symptoms o f preeclampsia [facility] 12/11/[address] [facility] [facility] 01/22/2024 Benefits of warehouse worker/referrals [facility] 01/22/2024 Discussion regarding plan Discussed- review with First Grade Teacher [facility] 12/11/2023 TDaP offered (ration melanie, R/B/A, VIS provided) Declined after informed discussion [facility] 12/11/2023 Problem List Updated [place] [address] 12/11/2023 Reviewed required CB C, drawn between 24-[address] [facility] 01/22/2024 S/sx of labor, when to call, gate shear operator pathology secretary/transcriptionist #. [facility] 12/11/2023 Nutrition/Hydration reassessment done [facility] 12/11/2023 [facility] 02/12/[address] [facility] 01/22/2024 RSV vaccine offered 32-26 wks Declined [place] [address] Delivery Information Delivery Date Delivery Type Labor Anesthesia Weeks Gestation Incision Type Labor Labor Length Hrs Delivered By Post Complications Tubal Sterilization Discharge Date Comments Discharge Information Feeding Method Contraceptive Method Maternal HG B and HCT Levels
--- OUTSIDE RECORDS SUMMARY | 2024-02-17 12:11 | XMS_ITS | Continuity of Care Document ---
Author Organization [place] - [facility], [facility] - Main Office Address [address] [place] [address] [place] [phone] Assessment Encounter Date Assessment Date Assessment LastModified by Organization Details LastModified Time 12/11/2023 12/11/2023 1. EVETTE at 28.1 weeks gestation. 2. Obesity. - Reviewed blood sugars, 8 elevations = 65% compliance. Encouraged to continue QID blood sugars until next CNM visit at [place]. - Discussed nutrition/hydra tion in 3rd trimester. - Declines Tdap after informed discussion. - CBC/Ferritin obtained today. - Discussed torpedo shooter services, past trauma and mood stabilization. Reviewed 1st 40 days nutrition. - RTC in [place] in 2 weeks. Time spent face to face for routine ob in third trimester and coordinating a plan of care was 60 minutes. [email or web address] Not available 12/11/2023 11:40:52 Plan of Treatment Reminders Order Date Submit Date Provider Last Modified By Organization Details Last Modified Time Details Appointments None recorded . Lab ferritin , serum or plasma 024 12/11/19 [facility], [address] [place], [address], 4 05:26:38 CBC 024 12/11/19 [facility], [address] [place], [address], 4 05:26:37 Referral None recorded . Procedures None recorded . Surgeries None recorded . Imaging None recorded . Medication Orders None recorded . Patient TargetsNo targets recorded. Patient InstructionsNo instructions recorded. Reason for Referral None Reported. Problems Name Problem SNOMED Code Status Onset Date Resolution Date Notes Provider Name and Address Organization Details Recorded Time Pregnanc y 73298131 Active 2023 Shared model of care with Avni Hagan APRN, CNM, [facility] [address] [place] [address], [place], [address] , [place] - [facility] 4 17:46:56 Obesity 909555080 Active 2021 Has a nutritio nist she meets once/mitul marquez HgbA1c per NOB= 5.1% Vladimir Hagan APRN, CNM, [facility] [address] [place] [address], [place], [address] , [place] - [facility] 4 17:46:55 Past pregnanc y history of section 725039406 Active Desires TOLAC Vladimir Hagan APRN, CNM, [facility] [address] [place] [address], [place], [address] , [place] [facility] 4 17:46:55 Past pregnanc y history of pre-ecla mpsia 13552016884 9100 Active 202111/19/23 : Reviewed BL labs, WNL. Reviewed increase d risk factor for CVD, diabetes , autoimmu ne d/o later in life. [facility] ed baby ASA, to initiate 12-16 weeks. Develope d at 41.3 weeks gestatio n with IOL. [facility] ed to add BL pre-ecla mptic labs to NOB. Vladimir Hagan APRN, CNM, [facility] [address] [place] [address], [place], [address] , [place] [facility] 4 14:30:37 Pregnanc y 30694141 Active 2023 Shared model of care with Avni Hagan APRN, CNM, [facility] [address] [place] [address], [place], [address] , [place] - [facility] 4 17:46:56 Past pregnanc y history of pre-ecla mpsia 51969075307 9100 Active 202111/19/23 : Reviewed BL labs, WNL. Reviewed increase d risk factor for CVD, diabetes , autoimmu ne d/o later in life. [facility] ed baby ASA, to initiate 12-16 weeks. Develope d at 41.3 weeks gestatio n with IOL. [facility] ed to add BL pre-ecla mptic labs to NOB. Vladimir Hagan APRN, CNM, WILLIAM [address] [place] [address], [address] , [facility] 4 14:30:37 Mixed anxiety and depressi ve disorder 866228763 Active 2021 Not Available [facility] 4 20:08:33 Obesity 766778877 Active 2021 Has a nutritio nist she meets once/mitul marquez HgbA1c per NOB= 5.1% Vladimir Hagan APRN, CNM, [facility] [address] [place] [address], [address] , [facility] 4 17:46:55 Pregnanc y 96286068 Completed 202102/27/2022 Shared model of care with [facility] service. NOB labs complete d at [facility]- reviewed . 12/20- Has torpedo shooter- Vladimir Hagan APRN, CNM, [facility] [address] [place] [address], [address] , [facility] [employer] [facility] 4 11:06:26 Problem Notes None recorded. Procedures Surgical History Date Name Laterality Status Provider Name and Address Organization Details Recorded Time 2 Date of Last Pap Smear completed Not Available [facility] 08/06/2023 20:07:34 extraction of wisdom tooth completed Not Available [facility] 08/06/2023 20:06:47 Imaging Results None recorded. Procedure Notes None recorded. Medical Equipment None Reported. Allergies Allergen ID Allergen Name Allergen Category Reaction Reaction Severity Criticality Documentation Date Start Date Code Code System Note Provider Name and Address Organization Details Recorded Time 301 adhesive tape environme nt,medica tion itching Not available low 08/28/2023 ALEENA DUEÑAS, RN [address] , [place], [address], [facility] 10:23:10 Medications Name [...] Available Not Avail able Not Available zinc 0,05644 active Not Available Not Avail able Not [...] Updated DateTime 12/11/2023 157.48 cm Vladimir giles, PISTON MAKER, CNM, WHNP [address], [place], [address], [place] - [facility] 12/11/2023 10:09:24 Date Recorded Body mass index (BMI) Body weight Systolic blood pressure Diastolic blood pressure Provider Name and Address Organization Details Last Updated DateTime 12/11/2023 52.3 kg/m2 885432.42 g 120 mm[Hg] 74 mm[Hg] ALEENA DUEÑAS, RN [address] , [place], [address] , [place] - [facility] 12/11/2023 10:17:53 Social History Question Answer Notes LastModified by Organizat ion Details LastModified Time Tobacco Smoking Status Never Smoker Not Available [facility] 08/06/2023 20:06:58 What Is Your Level Of Alcohol Consumption? Moderate Pre-pregnanc y MIGRATION.71541 98247 Information not available 08/06/2023 Are You Blind Or Do You Have Difficulty Seeing? No MIGRATION.51349 45989 Information not available 08/06/2023 Are You Currently Employed? Yes MIGRATION.65031 50472 Information not available 08/06/2023 Are You Deaf Or Do You Have Serious Difficulty Hearing? No MIGRATION.86295 02821 Information not available 08/06/2023 What Type Of Diet Are You Following? REGULAR MIGRATION.56374 44484 Information not available 08/06/2023 What Is The Highest Grade Or Level Of School You Have Completed Or The Highest Degree You Have Received? [id number] MIGRATION.52839 98592 Information not available 08/06/2023 Have You Been Exposed To Chemicals Or Toxins? No MIGRATION.67042 00923 Information not available 08/06/2023 Have You Been Exposed To Heavy Metals? No MIGRATION.96622 98799 Information not available 08/06/2023 Have There Been Any Changes To Your Family Or Social Situation? No MIGRATION.85740 54194 Information not available 08/06/2023 Do You Have Any Transportation Challenges? No MIGRATION.32261 31969 Information not available 08/06/2023 Do You Have Enough Food To Eat? Yes MIGRATION.39429 92561 Information not available 08/06/2023 Do You Have People In Your Life You Can Reach Out To For Help Yes MIGRATION.63247 77825 Information not available 08/06/2023 Have You Ever Experienced Abuse From Family Members, Friends, Past Relationships, Etc? No MIGRATION.42035 02324 Information not available 08/06/2023 Have You Ever Been Hit/kicked/slappe d Or Raped In Your Current Relationship? No MIGRATION.36632 52778 Information not available 08/06/2023 Have You Been Exposed To Heavy Metals? No [email or web address] Information not available 08/28/2023 Have You Been Exposed To Chemicals Or Toxins? No [email or web address] Information not available 08/28/2023 Do You Experience Mental Or Emotional Abuse In Your Current Relationship? No MIGRATION.43502 66204 Information not available 08/06/2023 Are You A Survivor Of Abuse? No MIGRATION.52431 97091 Information not available 08/06/2023 What Is Your Relationship Status? Domestic Partner MIGRATION.51610 20677 Information not available 08/06/2023 Are You Sexually Active? Yes MIGRATION.30730 85925 Information not available 08/06/2023 Are You Passively Exposed To Smoke? Yes Childhood MIGRATION.29928 75455 Information not available 08/06/2023 Do You Feel Stressed (tense, Restless, Nervous, Or Anxious, Or Unable To Sleep At Night)? [id number] MIGRATION.50247 82720 Information not available 08/06/2023 Do You Use Any Illicit Or Recreational Drugs? No MIGRATION.30002 67415 Information not available 08/06/2023 Do You Have Any Dietary Restrictions? No [email or web address] Information not available 08/28/2023 Do You Or Have You Ever Used Any Other Forms Of Tobacco Or Nicotine? No MIGRATION.72416 15732 Information not available 08/06/2023 Sex: Unknown Functional Status Question Answer Note LastModified by Organizat ion Details LastModified Time Do you have difficulty walking or climbing stairs? No MIGRATION.4508436 000 Information not available 08/06/2023 Do you have transportation difficulties? No MIGRATION.1486695 000 Information not available 08/06/2023 What is your exercise level? Moderate MIGRATION.0984205 000 Information not available 08/06/2023 Mental Status Question Answer Note LastModified by Organizat ion Details LastModified Time Do you have difficulty concentrating, remembering or making decisions? No MIGRATION.398829924 0 Information not available 08/06/2023 Family History Relationship Description Onset Age of this Age Resolved Age Notes LastModified by Organization Details LastModified Time Sister Polycystic ovary syndrome MIGRATION.910 [id number] Not available 08/06/2023 20:07:42 Medical History Condition [...] 3942 Vladimir Hagan APRN, CNM, WHNP [facility] [address] [place] [address] 11/19/2023 14:05:29 02/12/2024 15:57:06 Routine care 079304791 Z34.82 O99.212 Z3A.25 4241 Vladimir Hagan APRN, CNM, WHNP [facility] [address] [place] [phone] 12/11/2023 09:54:06 02/12/2024 15:57:42 Routine care 606391917 Z34.83 Z3A.28 O99.213 Health Concerns Section Related Observation LastModified by Organization Detai ls LastModified Time None Recorded Concern Status LastModified by Organization Details LastModified Time None Recorded Payers Encounter Date Sequence Insurance Name Policy Number Policy Alvarez Covered Member ID Alvarez Member ID Guarantor Name 12/11/2023 1 [place] [id number] Rosie Stein [id number] Notes Date Note Type Note Provider Name and Address Organization Details Recorded Time 12/11/2023 text/html HPI Notes: Presents alone for EVETTE at 28.1 weeks gestation. Feeling well, no concerns. 1hr gtt/labs today, declines 1hr gtt and desired QID testing. Reviewed 1 week of blood sugars and are in 65 % compliance. Encouraged to test x 1 more week and verify with [place] their compliance parameters. Patient has struggled with [...] to invest in book and connect with [employer] for preparation. CBC/Ferritin today. Rh positive. Encouraged next visit with midwives in [place] to discuss: blood sugars, anxious feelings regarding previous trauma, and facilitate torpedo shooter connection. Vladimir Hagan APRN, CNLázaro, WHNP [address] [place] [address], [address], [place] - [facility] 12/11/2023 11:42:24 OBGyn Episode Ob Episode Information Episode Created Date Number of Fetuses Patient Bloodtype Patient rh Status Prepregnancy Weight lbs Domestic Partner Domestic Partner Phone Father Name Patient Scheduling Coordinator Status 08/28/19 24 1 A Positive 270 Rod OPEN Fetus Data First Name Last Name Admitted to NICU Weight (g) Sex Living Outcome Pediatric Complications Fetus ID Race Codes Race Delivery Type 201 Problems Problem Notes Problem Name Start Date End Date Resolution Snomed Code Not e Past history of pre-eclampsia 02/27/2022 [id number] 11/19/23: R nelawed BL labs, WNL. Reviewed increased risk factor for CVD, diabetes, autoimmune d/o later in life. Encouraged baby ASA, to initiate 12-16 weeks. Developed at 41.3 weeks gestation with IOL.Encouraged to add BL pre-eclamptic labs to NOB. 08/28/2023 [id number] Shared mo del of care with [place] Obesity 12/20/2021 914658245 Has a nut ritionist she meets once/week. HgbA1c per NOB= 5.1% Past history of section 220197481 Desires CRYSTAL AC Keith Calculation Initial Keith [...] Is planning shared model of care with [place] as she risks out of care d/t previous C/S, obesity (BMI=50) and hx/o pre-eclampsia. Encouraged baby ASA as she is not currently taking it. Also encouraged for [place] to add BL pre-eclamptic labs and a TSH (with topical iodine use) to assure stability. Patient to [facility] field administrator and will return to [place] for lab draws. Offered to draw labs here, but desires [place] as she will deliver there. Discussed previous [...] child or complications Continues chiro care and map clerk care. Anatomy U/S with CNM visit already scheduled at [place] in 4 weeks. Still needs to complete [...] Baby ASA, midwives ok with this via [place]. Still going to chiropractor. Discussed repeat C/S vs IOL vs natural labor/. Plans on same torpedo shooter for support as last . Will decline 1hr gtt, has supplies for QID testing and plans to start at 27 weeks and we will review at 28 weeks and will do labs at that time. Will decline Tdap- CNM in [place] ok with this shared care. Mood stable, [...] x 1 more week and verify with [place] their compliance parameters. Patient has struggled with [...] to invest in book and connect with [employer] for preparation. CBC/Ferritin today. Rh positive. Encouraged next visit with midwives in [place] to discuss: blood sugars, anxious feelings regarding previous trauma, and facilitate torpedo shooter connection. Flowsheet Date 01/22/2024 Callahan Score Blood [...] Feeling well, no concerns. Was seen in [place] last visit, went well. Discussed BS parameters, within normal limits and was able to connect with [employer], encouraged to discuss and prepare for upcoming [...] Feeling quite well, no concerns. GBS in [place]- reviewed this was negative. Had an OB [...] continue these discussions with providers, partner and torpedo shooter. Established good rapport with alvarez, who has [...] healthy mother and baby. Resume remainder of PNC in [place]. Mood stable. Menstrual History Last Menstrual Date Menses Monthly On Bcp Conception Prior Menses Frequency Hcg Plus Date Menarche Onset Age 0205/28/2023 true 30 Genetic Screening And Infection History Question Response Note Patient's Age Will Be 35 Yea rs Or Older At Estimated Date of Delivery true Thalassemia (Bulgarian, Greenlandic, Mediterranean, Or Background): MCV < 80 false Neural Tube Defect (Meningom yelocele, Spina Bifida, Or Anencephaly) false Congenital Heart Defect false Down Syndrome false Raul-Sachs (eg, Yarsanism, Cajun , Wolof-Armington) false Ritesh Disease false Sickle Cell Disease Or Trait () false Hemophilia Or Other Blood Disorders false Muscular Dystrophy false Cystic Fibrosis false [place]'s Chorea false Intellectual Disability/Autism false If Yes, [...] Discuss ed By 12/11/2023 Initial Labs Offered/[facility]ed [facility]/11/2023 CBE [facility] 12/11/2023 Nutrition/Hydration reassessment done [place] [address] 12/11/2023 Selecting a care provider [place] [address] 12/11/2023 Free from intimate partner violence [place] [address] Third Trimester Discussed Date Discussion Item Discussion Note Discuss ed By 12/11/2023 Signs and symptoms o f preeclampsia [place] [address] 12/11/2023 [place] [address] 01/22/2024 Benefits of torpedo shooter/referrals [place] [address] 01/22/2024 Discussion regarding plan Discussed- review with Alvarez [place] [address] 12/11/2023 TDaP offered (ration melanie, R/B/A, VIS provided) Declined after informed discussion [place] [address] 12/11/2023 Problem List Updated [place] [address] 12/11/2023 Reviewed required CB C, drawn between 24-30 weeks [place] [address] 01/22/2024 S/sx of labor, when to call, 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 [facility] 12/11/2023 Nutrition/Hydration reassessment done [place] [address] 12/11/2023 movement monitoring [place] [address] 02/12/2024 depression [facility] 01/22/2024 RSV vaccine offered 32-26 wks Declined [place] [address] Delivery Information Delivery Date Delivery Type Labor Anesthesia Weeks Gestation Incision Type Labor Labor Length Hrs Delivered By Post Complications Tubal Sterilization Discharge Date Comments Discharge Information Feeding Method Contraceptive Method Maternal HG B and HCT Levels
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
--- OUTSIDE RECORDS SUMMARY | 2024-02-17 12:11 | XMS_ITS | Continuity of Care Document ---
Author Organization [place] [facility], [facility] Address [address] [place] [address] [place] [address] Assessment Encounter Date Assessment Date Assessment LastModified by Organization Details LastModified Time 02/12/2024 02/12/2024 1. EVETTE at 37.1 weeks gestation. 2. Previous C/S. - Reviewed POC for remainder of . - Encouraged openness and mental preparation with previous trauma and current triggers as she makes a decision with a TOLAC or repeat C/S. - Reviewed GBS status. - Discussed labor S/S and when to f/u with provider/triage . - F/U in [place] state. Time spent face to face for routine care in 3rd trimester and coordinating a plan of care was 60 minutes. [email or web address] Not available 02/12/2024 13:50:43 Plan of Treatment Reminders Order Date Submit [...] Address Organization Details Recorded Time Pregnanc y 11077838 Active 2023 Shared model of care with Avni Hagan APRN, CNM, WHNP [address] , [place], [address] , [facility] - [facility] 17:46:56 Obesity 254863191 Active 2021 Has a nutritio nist she meets once/mitul marquez HgbA1c per NOB= 5.1% Vladimir Hagan APRN, CNM, WHNP [address] [place] [address], [place], [address] , [place] - [facility] 4 17:46:55 Past pregnanc y history of section 758555307 Active Desires TOLAC Vladimir Hagan APRN, CNM, NP [address] [place] [address], [place], [address] , [place] - [facility] 4 17:46:55 Past pregnanc y history of pre-ecla mpsia 02552751904 9100 Active 202111/19/23 : Reviewed BL labs, WNL. Reviewed increase d risk factor for CVD, diabetes , autoimmu ne d/o later in life. [facility] ed baby ASA, to initiate 12-16 weeks. Develope d at 41.3 weeks gestatio n with IOL. [facility] ed to add BL pre-ecla mptic labs to NOB. Vladimir Hagan APRN, CNM, VINEET [address] [place] [address], [place], [address] , [place] - [facility] 4 14:30:37 Pregnanc y 20103342 Active 2023 Shared model of care with Avni Hagan APRN, CNM, NP [address] [place] [address], [place], [address] , [place] - [facility] 4 17:46:56 Past pregnanc y history of pre-ecla mpsia 88286250345 9100 Active 202111/19/23 : Reviewed BL labs, WNL. Reviewed increase d risk factor for CVD, diabetes , autoimmu ne d/o later in life. [facility] ed baby ASA, to initiate 12-16 weeks. Develope d at 41.3 weeks gestatio n with IOL. [facility] ed to add BL pre-ecla mptic labs to NOB. Vladimir Hagan APRN, CNM, VINEET [address] [place] [address], [place], [address] , [facility] 4 14:30:37 Mixed anxiety and depressi ve disorder 921997059 Active 2021 Not Available [facility] 4 20:08:33 Obesity 031965289 Active 2021 Has a nutritio nist she meets once/mitul marquez HgbA1c per NOB= 5.1% Vladimir Hagan APRN, OLIVIA, VINEET [address] [facility], [place], [address] , [facility] 4 17:46:55 Pregnanc y 67972011 Completed 202102/27/2022 Shared model of care with [facility] service. NOB labs complete d at [facility]- reviewed . 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 Procedures Surgical History Date Name Laterality Status Provider Name and Address Organization Details Recorded Time 2 Date of Last Pap Smear completed Not Available [facility] 08/06/2023 20:07:34 extraction of wisdom tooth completed Not Available [facility] 08/06/2023 20:06:47 Imaging Results None recorded. Procedure Notes None recorded. Medical Equipment None Reported. Allergies Allergen ID Allergen Name Allergen Category Reaction Reaction Severity Criticality Documentation Date Start Date Code Code System Note Provider Name and Address Organization Details Recorded Time 301 adhesive tape environme nt,medica tion itching Not available low 08/28/2023 ALEENA DUEÑAS, DANNA [address] [facility], [place], [address], [facility] 4 10:23:10 Medications Name Sig Start Date [...] Available Not Avail able Not Available zinc 0,01677 active Not Available Not Avail able Not [...] Available Not Available Vitals Date Recorded Body weight Body height Systolic blood pressure Diastolic blood pressure Provider Name and Address Organization Details Last Updated DateTime 02/12/2024 230949.15 678 g 157.48 cm 120 mm[Hg] 78 mm[Hg] ALEENA DUEÑAS, RN [address] , [place], [address] , [place] - [facility] 02/12/2024 12:42:53 Social History Question Answer Notes LastModified by Organizat ion Details LastModified Time Tobacco Smoking Status Never Smoker Not Available [facility] 08/06/2023 20:06:58 What Is Your Level Of Alcohol Consumption? Moderate Pre-pregnanc y MIGRATION.89728 85726 Information not available 08/06/2023 Are You Blind Or Do You Have Difficulty Seeing? No MIGRATION.80584 57046 Information not available 08/06/2023 Are You Currently Employed? Yes MIGRATION.55591 40675 Information not available 08/06/2023 Are You Deaf Or Do You Have Serious Difficulty Hearing? No MIGRATION.58717 14139 Information not available 08/06/2023 What Type Of Diet Are You Following? REGULAR MIGRATION.93949 73544 Information not available 08/06/2023 What Is The Highest Grade Or Level Of School You Have Completed Or The Highest Degree You Have Received? [id number] MIGRATION.09165 13804 Information not available 08/06/2023 Have You Been Exposed To Chemicals Or Toxins? No MIGRATION.82212 34586 Information not available 08/06/2023 Have You Been Exposed To Heavy Metals? No MIGRATION.27093 99656 Information not available 08/06/2023 Have There Been Any Changes To Your Family Or Social Situation? No MIGRATION.41295 11420 Information not available 08/06/2023 Do You Have Any Transportation Challenges? No MIGRATION.38871 55427 Information not available 08/06/2023 Do You Have Enough Food To Eat? Yes MIGRATION.16280 85817 Information not available 08/06/2023 Do You Have People In Your Life You Can Reach Out To For Help Yes MIGRATION.37181 87500 Information not available 08/06/2023 Have You Ever Experienced Abuse From Family Members, Friends, Past Relationships, Etc? No MIGRATION.02397 36651 Information not available 08/06/2023 Have You Ever Been Hit/kicked/slappe d Or Raped In Your Current Relationship? No MIGRATION.62308 89999 Information not available 08/06/2023 Have You Been Exposed To Heavy Metals? No [email or web address] Information not available 08/28/2023 Have You Been Exposed To Chemicals Or Toxins? No [email or web address] Information not available 08/28/2023 Do You Experience Mental Or Emotional Abuse In Your Current Relationship? No MIGRATION.64436 84569 Information not available 08/06/2023 Are You A Survivor Of Abuse? No MIGRATION.31252 54752 Information not available 08/06/2023 What Is Your Relationship Status? Domestic Partner MIGRATION.85018 26995 Information not available 08/06/2023 Are You Sexually Active? Yes MIGRATION.68488 48812 Information not available 08/06/2023 Are You Passively Exposed To Smoke? Yes Childhood MIGRATION.50979 88480 Information not available 08/06/2023 Do You Feel Stressed (tense, Restless, Nervous, Or Anxious, Or Unable To Sleep At Night)? [id number] MIGRATION.92852 65067 Information not available 08/06/2023 Do You Use Any Illicit Or Recreational Drugs? No MIGRATION.93774 29807 Information not available 08/06/2023 Do You Have Any Dietary Restrictions? No [email or web address] Information not available 08/28/2023 Do You Or Have You Ever Used Any Other Forms Of Tobacco Or Nicotine? No MIGRATION.95200 40628 Information not available 08/06/2023 Sex: Unknown Functional Status Question Answer Note LastModified by Organizat [facility] Details LastModified Time Do you have difficulty walking or climbing stairs? No MIGRATION.2515573 000 Information not available 08/06/2023 Do you have transportation difficulties? No MIGRATION.2215678 000 Information not available 08/06/2023 What is your exercise level? Moderate MIGRATION.4747849 000 Information not available 08/06/2023 Mental Status Question Answer Note LastModified by Organizat [facility] Details LastModified Time Do you have difficulty concentrating, remembering or making decisions? No MIGRATION.476304852 0 Information not available 08/06/2023 Family History Relationship Description Onset Age of this Age Resolved Age Notes LastModified by Organization Details LastModified Time Sister Polycystic ovary syndrome [id number].[id number] Not available 08/06/2023 20:07:42 Medical History Condition [...] SNOMED-CT Code Diagnosis ICD10 Code 4705 Vladimir Hagan APRN, OLIVIA, WILLIAM [facility] [address] [facility] [place] [address] 01/22/2024 11:53:29 02/12/2024 15:59:54 Routine care 580816313 Z34.83 O99.213 Z3A.34 4981 Vladimir Hagan APRN, CNM, WILLIAM [facility] [address] [facility] [place] [address] 02/12/2024 12:00:28 02/12/2024 15:55:12 Routine care 440496891 O99.213 Z3A.37 O09.893 Health Concerns Section Related Observation LastModified by Organization Detai ls LastModified Time None Recorded Concern Status LastModified by Organization Details LastModified Time None Recorded Payers Encounter Date Sequence Insurance Name Policy Number Policy Alvarez Covered Member ID Alvarez Member ID Guarantor Name 02/12/2024 1 [place] [id number] Rosie Stein [id number] Notes Date Note Type Note Provider Name and Address Organization Details Recorded Time 02/12/2024 text/html HPI Notes: Prese nts alone for routine ob at 37.1 weeks gestation. Feeling quite well, no concerns. GBS in [place]- reviewed this was negative. Had an OB [...] partner and alvarez. Established good rapport with alvarez, who has [...] and baby. Resume remainder of PNC in [place]. Mood stable. Vladimir Hagan, ATTILA, CNM, WHNP [address] [facility] [address] , [place], [address], [place] - [facility] 02/12/2024 13:51:12 OBGyn Episode Ob Episode Information Episode Created Date Number of Fetuses Patient Bloodtype Patient rh Status Prepregnancy Weight lbs Domestic Partner Domestic Partner Phone Father Name Product Consultant Status 08/28/19 1 A Positive 270 Rod OPEN Fetus Data First Name Last Name Admitted to NICU Weight (g) Sex Living Outcome Pediatric Complications Fetus ID Race Codes Race Delivery Type 201 Problems Problem Notes Problem Name Start Date End Date Resolution Snomed Code Not e Past history of pre-eclampsia 02/27/2022 [id number] 11/19/23: Luis edmond BL labs, WNL. Reviewed increased risk factor for CVD, diabetes, autoimmune d/o later in life. Encouraged baby ASA, to initiate 12-16 weeks. Developed at 41.3 weeks gestation with IOL.Encouraged to add BL pre-eclamptic labs to NOB. 08/28/2023 [id number] Shared mo del of care with [place] Obesity 12/20/2021 057313964 Has a nut ritionist she meets once/week. HgbA1c per NOB= 5.1% Past history of section 128554255 Desires CRYSTAL AC Keith Calculation Initial Keith [...] Is planning shared model of care with [place] as she risks out of care d/t previous C/S, obesity (BMI=50) and hx/o pre-eclampsia. Encouraged baby ASA as she is not currently taking it. Also encouraged for [place] to add BL pre-eclamptic labs and a TSH (with topical iodine use) to assure stability. 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 Offered to draw labs here, but desires [place] as she will deliver there. Discussed previous [...] child or complications Continues chiro care and pneumatic tester care. Anatomy U/S with CNM visit already scheduled at [place] in 4 weeks. Still needs to complete [...] Baby ASA, midwives ok with this via [place]. Still going to chiropractor. Discussed repeat C/S vs IOL vs natural labor/. Plans on same loader helper sorting yard for support as last . Will decline 1hr gtt, has supplies for QID testing and plans to start at 27 weeks and we will review at 28 weeks and will do labs at that time. Will decline Tdap- CNM in [place] ok with this shared care. Mood stable, [...] x 1 more week and verify with [place] their compliance parameters. Patient has struggled with [...] to invest in book and connect with Lead Business Systems Analyst for preparation. CBC/Ferritin today. Rh positive. Encouraged next visit with midwives in [place] to discuss: blood sugars, anxious feelings regarding previous trauma, and facilitate loader helper sorting yard connection. Flowsheet Date 01/22/2024 Callahan Score Blood [...] Feeling well, no concerns. Was seen in [place] last visit, went well. Discussed BS parameters, within normal limits and was able to connect with Lead Business Systems Analyst, encouraged to discuss and prepare for upcoming [...] Feeling quite well, no concerns. GBS in [place]- reviewed this was negative. Had an OB [...] continue these discussions with providers, partner and loader helper sorting yard. Established good rapport with alvarez, who has [...] and baby. Resume remainder of PNC in [place]. Mood stable. Menstrual History Last Menstrual Date Menses Monthly On Bcp Conception Prior Menses Frequency Hcg Plus Date Menarche Onset Age 0205/28/2023 true 30 Genetic Screening And Infection History Question Response Note Patient's Age Will Be 35 Yea rs Or Older At Estimated Date of Delivery true Thalassemia (Syriac, Yi, Mediterranean, Or Background): MCV < 80 false Neural Tube Defect (Meningom yelocele, Spina Bifida, Or Anencephaly) false Congenital Heart Defect false Down Syndrome false Raul-Sachs (eg, Religion, Cajun , Turkmen-Dickson) false Ritesh Disease false Sickle Cell Disease Or Trait () false Hemophilia Or Other Blood Disorders false Muscular Dystrophy false Cystic Fibrosis false Gunner's Chorea false Intellectual Disability/Autism false If Yes, [...] Discuss ed By 12/11/2023 Initial Labs Offered/Reviewed [place] [address] 12/11/2023 CBE [place] [address] 12/11/2023 Nutrition/Hydration reassessment done [place] [address] 12/11/2023 Selecting a care provider [place] [address] 12/11/2023 Free from intimate partner violence [place] [address] Third Trimester Discussed Date Discussion Item Discussion Note Discuss ed By 12/11/2023 Signs and symptoms o f preeclampsia [place] [address] 12/11/2023 [place] [address] 01/22/2024 Benefits of loader helper sorting yard/referrals [place] [address] 01/22/2024 Discussion regarding plan Discussed- review with Lead Business Systems Analyst [place] [address] 12/11/2023 TDaP offered (ration melanie, R/B/A, VIS provided) Declined after informed discussion [place] [address] 12/11/2023 Problem List Updated [place] [id number] 12/11/2023 Reviewed required CB C, drawn between 24-30 weeks [place] [address] 01/22/2024 S/sx of labor, when to call, 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 12/11/2023 Nutrition/Hydration reassessment done [place] [address] 12/11/2023 [facility] 02/12/2024 depression [place] [address] 01/22/2024 RSV vaccine offered 32-26 wks [facility]ined [email or web address] Delivery Information Delivery Date Delivery Type Labor Anesthesia Weeks Gestation Incision Type Labor Labor Length Hrs Delivered By Post Complications Tubal Sterilization Discharge Date Comments Discharge Information Feeding Method Contraceptive Method Maternal HG B and HCT Levels
--- NOTE | 2024-02-17 12:15 | CRLHL7_ITS ---
For Patients: As a result of the Century Cures Act, medical imaging exams and procedure reports are released immediately into your electronic medical record. You may view this report before your referring provider. If you have questions, please contact your health care provider. INDICATION: Third trimester scan, evaluate growth. . COMPARISON: 10/14/2023 TECHNIQUE: Real time milian scale imaging of the fetus was performed. FINDINGS: Sonographic imaging demonstrates a single living intrauterine gestation. Fetus demonstrates a regular cardiac rate of 154 beats per minute. Fetus has a vertex position. The placenta lies posterior. Amniotic fluid volume appears normal and there is a single deepest vertical pocket: 5.3 cm. The estimated weight is 4519gm which lies at the greater than 97th %. On the prior OB ultrasound exam dated 10/14/2023 the estimated weight was at the 75th%. BPD 77th percentile. HC and AC greater than 97th percentile. FL 29th percentile. The HC/AC ratio measures 0.90 range (0.91-1.05). Bilateral renal pelviectasis measuring 9 millimeters on the right and 10 millimeters on the left. IMPRESSION: Sonographic gestational age 37 weeks 4 days with sonographic due date 03/05/2024. Good correlation with dates. Normal interval growth. Estimated weight greater than 97th percentile. HC and AC greater than 97th percentile. Bilateral renal pelviectasis measuring 9 millimeters on the right and 10 millimeters on the left. follow-up recommended. Dictated by Dwain Morrissey MD @ 02/18/2024 7:22:09 AM (Electronically Signed)
== END 2024-02-17 12:09 | disposition home or self-care (01) ==
LOC: US 12:09
PROVIDERS: Visit Provider Obstetrics & Gynecology
DX: O34.219 Maternal care for unspecified type scar from previous cesarean delivery (principal); Z3A.37 37 weeks gestation of pregnancy
CPT/HCPCS: 76816

== ENCOUNTER 2024-02-20 06:08 | Inpatient (IN) | payer BC, SELFPAY ==
[2024-02-20] VITALS (31 sets, daily range): BP systolic 101–130; BP diastolic 54–87; PULSE 72–90; RESP 16–20; TEMP 36.5–37.1; O2SAT 95–98; BMI 56.1
--- OUTSIDE RECORDS SUMMARY | 2024-02-20 06:11 | XMS_ITS | Referral Summary ---
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
--- OUTSIDE RECORDS SUMMARY | 2024-02-20 06:11 | XMS_ITS | Clinical Summary ---
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
--- OUTSIDE RECORDS SUMMARY | 2024-02-20 06:11 | XMS_ITS | Continuity of Care Document ---
Author Organization [place] - [facility], [facility] - Main Office Address [address] [place] [address] B[place]IS DOMINGUEZ [address] Assessment Encounter Date Assessment Date Assessment LastModified [...] Address Organization Details Recorded Time Pregnanc y 70606218 Active 2023 Shared model of care with Avni Hagan APRN, OLIVIA, WHNP [address] [place] [address] [place], [address] , [place] - [facility] 4 17:46:56 Obesity 697437039 Active 2021 Has a nutritio nist she meets once/mitul marquez HgbA1c per NOB= 5.1% Vladimir Hagan APRN, OLIVIA, WHNP [address] [place] [address] [place], [address] , [facility] - [facility] 4 17:46:55 Past pregnanc y history of section 475169484 Active Desires TOLAC Vladimir Hagan APRN, CNM, MAN [facility] [address] [place] [address], [address] , [facility] 4 17:46:55 Past pregnanc y history of pre-ecla mpsia 04567958808 9100 Active 202111/19/23 : Reviewed BL labs, WNL. Reviewed increase d risk factor for CVD, diabetes , autoimmu ne d/o later in life. [facility] ed baby ASA, to initiate 12-16 weeks. Develope d at 41.3 weeks gestatio n with IOL. [facility] ed to add BL pre-ecla mptic labs to NOB. Vladimir Hagan APRN, CNM, WILLIAM [address] [place] [address], [place], [address] , [facility] - [facility] 4 14:30:37 Pregnanc y 30963202 Active 2023 Shared model of care with Avni Hagan APRN, CNM, VINEET [address] [place] [address], [place], [address] , [facility] 4 17:46:56 Past pregnanc y history of pre-ecla mpsia 94295243256 9100 Active 202111/19/23 : Reviewed BL labs, WNL. Reviewed increase d risk factor for CVD, diabetes , autoimmu ne d/o later in life. [facility] ed baby ASA, to initiate 12-16 weeks. Develope d at 41.3 weeks gestatio n with IOL. [facility] ed to add BL pre-ecla mptic labs to NOB. Vladimir Hagan APRN, CNM, VINEET [address] [place] [address], [place], [address] , [facility] 4 14:30:37 Mixed anxiety and depressi ve disorder 727634531 Active 2021 Not Available [facility] 4 20:08:33 Obesity 690099816 Active 2021 Has a nutriviola martini she meets once/mitul marquez HgbA1c per NOB= 5.1% Vladimir Hagan APRN, OLIVIA, WHNP [address] [place] [address], [place], [address] , [facility] - [facility] 4 17:46:55 Pregnanc y 75393281 Completed 202102/27/2022 Shared model of care with [facility] service. NOB labs complete d at [facility]- reviewed . 12/20- Has presidential support specialist- Vladimir Hagan APRN, OLIVIA, VINEET [address] [facility], [place], [address] , [facility] - [facility] 4 11:06:26 Problem Notes None recorded. Procedures Surgical History Date Name Laterality Status Provider Name and Address Organization Details Recorded Time 2 Date of Last Pap Smear completed Not Available [facility] 08/06/2023 20:07:34 extraction of wisdom tooth completed Not Available [facility] 08/06/2023 20:06:47 Imaging Results None recorded. Procedure Notes None recorded. Medical Equipment None Reported. Allergies Allergen ID Allergen Name Allergen Category Reaction Reaction Severity Criticality Documentation Date Start Date Code Code System Note Provider Name and Address Organization Details Recorded Time 301 adhesive tape environme nt,medica tion itching Not available low 08/28/2023 ALEENA DUEÑAS RN [address] [facility], [place], [address], [facility] - [facility] 4 10:23:10 Medications Name [...] Available Not Avail able Not Available zinc 0,14939 active Not Available Not Avail able Not [...] Updated DateTime 01/22/2024 157.48 cm 52.7 kg/m2 825559.6 g 110 mm[Hg] 78 mm[Hg] ALEENA DUEÑAS, RN [address] [place], [address], [place] - [facility] 12:05:32 Social History Question Answer Notes LastModified by Organizat ion Details LastModified Time Tobacco Smoking Status Never Smoker Not Available [facility] 08/06/2023 20:06:58 What Is Your Level Of Alcohol Consumption? Moderate Pre-pregnanc y MIGRATION.91531 [id number] Information not available 08/06/2023 Are You Blind Or Do You Have Difficulty Seeing? No MIGRATION.74444 95846 Information not available 08/06/2023 Are You Currently Employed? Yes MIGRATION.01575 95972 Information not available 08/06/2023 Are You Deaf Or Do You Have Serious Difficulty Hearing? No MIGRATION.52094 85107 Information not available 08/06/2023 What Type Of Diet Are You Following? REGULAR MIGRATION.94356 50991 Information not available 08/06/2023 What Is The Highest Grade Or Level Of School You Have Completed Or The Highest Degree You Have Received? [id number] MIGRATION.85016 97169 Information not available 08/06/2023 Have You Been Exposed To Chemicals Or Toxins? No MIGRATION.14425 03727 Information not available 08/06/2023 Have You Been Exposed To Heavy Metals? No MIGRATION.56960 08685 Information not available 08/06/2023 Have There Been Any Changes To Your Family Or Social Situation? No MIGRATION.33834 15278 Information not available 08/06/2023 Do You Have Any Transportation Challenges? No MIGRATION.60241 01971 Information not available 08/06/2023 Do You Have Enough Food To Eat? Yes MIGRATION.26094 66158 Information not available 08/06/2023 Do You Have People In Your Life You Can Reach Out To For Help Yes MIGRATION.12456 29235 Information not available 08/06/2023 Have You Ever Experienced Abuse From Family Members, Friends, Past Relationships, Etc? No MIGRATION.15162 48322 Information not available 08/06/2023 Have You Ever Been Hit/kicked/slappe d Or Raped In Your Current Relationship? No MIGRATION.88278 51185 Information not available 08/06/2023 Have You Been Exposed To Heavy Metals? No [email or web address] Information not available 08/28/2023 Have You Been Exposed To Chemicals Or Toxins? No [email or web address] Information not available 08/28/2023 Do You Experience Mental Or Emotional Abuse In Your Current Relationship? No MIGRATION.50555 79135 Information not available 08/06/2023 Are You A Survivor Of Abuse? No MIGRATION.76893 58706 Information not available 08/06/2023 What Is Your Relationship Status? Domestic Partner MIGRATION.24474 34537 Information not available 08/06/2023 Are You Sexually Active? Yes MIGRATION.97315 15631 Information not available 08/06/2023 Are You Passively Exposed To Smoke? Yes Childhood MIGRATION.62998 03779 Information not available 08/06/2023 Do You Feel Stressed (tense, Restless, Nervous, Or Anxious, Or Unable To Sleep At Night)? [id number] MIGRATION.18201 23353 Information not available 08/06/2023 Do You Use Any Illicit Or Recreational Drugs? No MIGRATION.13871 81247 Information not available 08/06/2023 Do You Have Any Dietary Restrictions? No [email or web address] Information not available 08/28/2023 Do You Or Have You Ever Used Any Other Forms Of Tobacco Or Nicotine? No MIGRATION.70699 89059 Information not available 08/06/2023 Sex: Unknown Functional Status Question Answer Note LastModified by Organizat ion Details LastModified Time Do you have difficulty walking or climbing stairs? No MIGRATION.9378171 000 Information not available 08/06/2023 Do you have transportation difficulties? No MIGRATION.8592981 000 Information not available 08/06/2023 What is your exercise level? Moderate MIGRATION.6396091 000 Information not available 08/06/2023 Mental Status Question Answer Note LastModified by Organizat ion Details LastModified Time Do you have difficulty concentrating, remembering or making decisions? No MIGRATION.857677102 0 Information not available 08/06/2023 Family History Relationship Description Onset Age of this Age Resolved Age Notes LastModified by Organization Details LastModified Time Sister Polycystic ovary syndrome [id number].[id number] Not available 08/06/2023 20:07:42 Medical History Condition Response Allergies (Food, seasonal, environmental ) Y Heart Problems N Thyroid Problems N Kidney or Bladder Problems N Lung Disease N Dermatologic Disorders N GI Problems Y Acne N Breast Problem N Eating Disorder N Gestational Diabetes N Anemia N Hematologic disorders N Anesthesia Complications N History of STI N Polycystic ovary syndrome N Psychiatric Illness N Diabetes N Anxiety Disorder N Autoimmune disease N Arthritis N Infertility N Acid Reflux (GERD) N Eczema N Cancer N Abuse/Domestic Violence N Asthma N Trauma/Violence [...] Code Diagnosis ICD10 Code 4705 Vladimir Hagan, SURGICAL TECHNOLOGY INSTRUCTOR, CNM, WHNP [facility] [address] [place] [address] 01/22/2024 11:53:29 02/12/2024 15:59:54 Routine care [id number] Z34.83 O99.213 Z3A.34 Health Concerns Section Related Observation LastModified by Organization Detai ls LastModified Time None Recorded Concern Status LastModified by Organization Details LastModified Time None Recorded Payers Encounter Date Sequence Insurance Name Policy Number Policy Alvarez Covered Member ID Alvarez Member ID Guarantor Name 01/22/2024 1 [place] [id number] Rosie Stein [id number] Notes Date Note Type Note Provider Name and Address Organization Details Recorded Time 01/22/2024 text/html HPI Notes: Presents alone for routine OB at 34.1 weeks gestation. Feeling well, no concerns. Was seen in [place] last visit, went well. Discussed BS parameters, within normal limits and was able to connect with Machine Filler Servicer, encouraged to discuss and prepare for upcoming related to past trauma. Feels in a good place with these discussions. Mood stable. Reviewed PTL S/S and when to f/u with [facility]. GBS next visit and OB consult for . Vladimir Hagan, ATTILA, CNM, WHNP [address] [place] [address], [place], [address], [place] - [facility] 01/22/2024 12:56:50 OBGyn Episode Ob Episode Information Episode Created Date Number of Fetuses Patient Bloodtype Patient rh Status Prepregnancy Weight lbs Domestic Partner Domestic Partner Phone Father Name Head Coach Status 08/28/19 24 1 A Positive 270 Rod OPEN Fetus Data First Name Last Name Admitted to NICU Weight (g) Sex Living Outcome Pediatric Complications Fetus ID Race Codes Race Delivery Type 201 Problems Problem Notes Problem Name Start Date End Date Resolution Snomed Code Not e Past history of pre-eclampsia 02/27/2022 [id number] 11/19/23: Luis edmond BL labs, WNL. Reviewed increased risk factor for CVD, diabetes, autoimmune d/o later in life. Encouraged baby ASA, to initiate 12-16 weeks. Developed at 41.3 weeks gestation with IOL.Encouraged to add BL pre-eclamptic labs to NOB. 08/28/2023 [id number] Shared mo del of care with [place] Obesity 12/20/2021 404364066 Has a nut ritionist she meets once/week. HgbA1c per NOB= 5.1% Past history of section [id number] Desires CRYSTAL AC Keith Calculation Initial Keith [...] Is planning shared model of care with [place] as she risks out of care d/t previous C/S, obesity (BMI=50) and hx/o pre-eclampsia. Encouraged baby ASA as she is not currently taking it. Also encouraged for [place] to add BL pre-eclamptic labs and a TSH (with topical iodine use) to assure stability. 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 Offered to draw labs here, but desires [place] as she will deliver there. Discussed previous [...] child or complications Continues chiro care and pill machine operator care. Anatomy U/S with CNM visit already scheduled at [place] in 4 weeks. Still needs to complete [...] Baby ASA, midwives ok with this via [place]. Still going to chiropractor. Discussed repeat C/S vs IOL vs natural labor/. Plans on same presidential support specialist for support as last . Will decline 1hr gtt, has supplies for QID testing and plans to start at 27 weeks and we will review at 28 weeks and will do labs at that time. Will decline Tdap- CNM in [place] ok with this shared care. Mood stable, [...] x 1 more week and verify with [place] their compliance parameters. Patient has struggled with [...] to invest in book and connect with Machine Filler Servicer for preparation. CBC/Ferritin today. Rh positive. Encouraged next visit with midwives in [place] to discuss: blood sugars, anxious feelings regarding previous trauma, and facilitate presidential support specialist connection. Flowsheet Date 01/22/2024 Callahan Score [...] Feeling well, no concerns. Was seen in [place] last visit, went well. Discussed BS parameters, within normal limits and was able to connect with Machine Filler Servicer, encouraged to discuss and prepare for upcoming [...] Feeling quite well, no concerns. GBS in [place]- reviewed this was negative. Had an OB [...] continue these discussions with providers, partner and presidential support specialist. Established good rapport with alvarez, who has [...] healthy mother and baby. Resume remainder of [facility] in [place]. Mood stable. Menstrual History Last Menstrual Date Menses Monthly On Bcp Conception Prior Menses Frequency Hcg Plus Date Menarche Onset Age 0205/28/2023 true 30 Genetic Screening And Infection History Question Response Note Patient's Age Will Be 35 Yea rs Or Older At Estimated Date of Delivery true Thalassemia (Kyrgyz, Latvian, Mediterranean, Or Background): MCV < 80 false Neural Tube Defect (Meningom yelocele, Spina Bifida, Or Anencephaly) false Congenital Heart Defect false Down Syndrome false Raul-Sachs (eg, Nondenominational, Cajun , Vietnamese-Uinta) false Ritesh Disease false Sickle Cell Disease Or Trait () false Hemophilia Or Other Blood Disorders false Muscular Dystrophy false Cystic Fibrosis false Crawford's Chorea false Intellectual Disability/Autism false If Yes, [...] Discuss ed By 12/11/2023 Initial Labs Offered/Reviewed [place] [address] 12/11/2023 CBE [place] [address] 12/11/2023 Nutrition/Hydration reassessment done [place] [address] 12/11/2023 [facility] provider [facility]23 Free from intimate partner violence [place] [address] Third Trimester Discussed Date Discussion Item Discussion Note Discuss ed By 12/11/2023 Signs and symptoms o f preeclampsia [facility]11[facility]2023 [facility] 01/22/2024 Benefits of presidential support specialist/referrals [facility] 01/22/2024 Discussion regarding plan Discussed- review with Machine Filler Servicer [facility] 12/11/2023 TDaP offered (ration melanie, R/B/A, VIS provided) Declined after informed discussion [facility] 12/11/2023 Problem List Updated [place] [address] 12/11/2023 Reviewed required CB C, drawn between 24-30 weeks [facility] 01/22/2024 S/sx of labor, when to call, logistics analytics manager 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 [facility] 12/11/2023 Nutrition/Hydration reassessment done [facility] 12/11/2023 [facility] 02/12/2024 depression [facility] 01/22/2024 RSV vaccine offered 32-26 wks Declined [place] [address] Delivery Information Delivery Date Delivery Type Labor Anesthesia Weeks Gestation Incision Type Labor Labor Length Hrs Delivered By Post Complications Tubal Sterilization Discharge Date Comments Discharge Information Feeding Method Contraceptive Method Maternal HG B and HCT Levels
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
--- OUTSIDE RECORDS SUMMARY | 2024-02-20 06:12 | XMS_ITS | Data Portability ---
Author Organization [place] - [employer] [facility] Address [address] [facility] [facility] [facility] [place] [address] Assessment Encounter Date Assessment Date Assessment LastModified by Organization Details LastModified Time 09/19/2021 09/19/2021 1. EVETTE at 23.5 weeks gestation. 2. Obesity. - Reviewed PTL S/S, when to seek medical care. - Encouraged class via [employer] if possible. - Encouraged daily baby ASA. - Reviewed comfort measures of ligament stretching and adequate hydration for suspicious constipation. - RTC in 4 weeks at [place], then 8 weeks at [facility]. Time spent face to face [...] attention. - Encouraged 2 week EVETTE in [place] as they desire a growth U/S secondary [...] labor. - PNC to be complete at [place]. - Reviewed warning S/S of GHTN/Pre-eclamps ia. - RTC in 1 week [place]. - RTC at [facility] 2 weeks PP for mood check. Reviewed PP care done at [facility]. Time spent face to face [...] By Organization Details Last Modified Time 02/27/2022 [id number] Patient Health Questionnaire-9* Not available 02/27/2022 16:16:54 MOLLY-7 anxiety scale* Not available 02/27/2022 16:16:54 Reason for Referral None Reported. Problems Name Problem SNOMED Code Status Onset Date Resolution Date Notes Provider Name and Address Organization Details Recorded Time Mixed anxiety and depressi ve disorder 076729618 Active 2021 Vladimir Hagan APRN, CNM, [facility] [address], [place], [address] , [employer] 2 14:36:21 Obesity 019335976 Active 2021 Has a nutritio nist she meets once/mitul k. Vladimir Hagan APRN, CNM, [facility] [address], [place], [address] , [employer] 2 15:52:01 Generali zed obesity 369372076 Completed 2021 BMI=45.4 . Reviewed may not be a CNM candidat e for delivery . Discusse d options, patient desires delivery at [facility]. HgbA1c= 5.1%; early 1 hr gtt= 134. Vladimir Hagan APRN, CNM, [facility] [address], [place], [address] , [employer] 2 15:06:39 Anxiety 51273053 Completed 2021 EPDS= 8 at [facility]. Declined talk therapy. Is able to recogniz e triggers and resoluti ons. 12/20- Mood stable- Vladimir DALEY, [facility] [address], [place], [address] , [employer] 2 15:06:39 Advanced maternal age 372640523 Completed 2021 Will be 36 at [place]. Encourag ed baby ASA at 12 weeks gestatio n. 12/20- not currentl y taking, using natural suppleme nts guided by Dr. Persaud ([facility]) Vladimir Hagan APRN, CNM, [facility] [address] [facility] [address], [place], [address] , [employer] 2 15:06:39 Pregnanc y 76323252 Completed 202102/27/2022 Shared model of care with [facility] service. NOB labs complete d at [facility]- reviewed . 12/20- Has rn neurosurgical- Vladimir Hagan APRN, CNM, [facility] [address] [facility] [address], [place], [address] , [employer] 2 15:06:45 Pregnanc y 02555504 Completed 2021 Shared model of care with [facility] service. NOB labs complete d at [facility]- reviewed . 12/20- Has rn neurosurgical- Vladimir DALEY, [facility] [address], [place], [address] , [employer] 2 15:06:39 Obesity 331786375 Completed 202112/21/19 22: BMI= 53. Weight gain in pregnanc y ~40 lbs. Has a nutritio nist she meets once/mitul Guerrerobarbi Morrisjacky AIKEN CNM, [facility] [address] [place] [address] [address], [place], [address] , [employer] 2 15:06:39 Past pregnanc y history of pre-ecla mpsia 43487106597 9100 Active 2021 Reviewed increase d risk factor for CVD, diabetes , autoimmu ne d/o later in life. Vladimir Hagan APRN, CNM, [facility] [address] [facility] [address], [place], [address] , [employer] 2 15:52:45 Problem Notes None recorded. Procedures Surgical History Date Name Laterality Status Provider Name and Address Organization Details Recorded Time 2 Date of Last Pap Smear completed Vladimir Hagan APRN, CNM, [address], [place], [address], [employer]. 06/13/2021 14:45:32 extraction of wisdom tooth completed Vladimir Hagan APRN, CNM, [facility] [address] [place] [address] [address], [place], [address], [employer]. 06/13/2021 14:55:28 Imaging Results None recorded. Procedure [...] Updated DateTime 09/19/2021 157.48 cm 48.3 kg/m2 788851.3 8568 g 118 mm[Hg] 62 mm[Hg] Vladimir DALEY, [facility] [email or web address], [place], [address] , [employer]. 16:11:46 Date Recorded Body height Body mass index (BMI) Body weight Systolic blood pressure Diastolic blood pressure Provider Name and Address Organization Details Last Updated DateTime 11/02/2021 157.48 cm 50.2 kg/m2 590012.1 54128 g 120 mm[Hg] 62 mm[Hg] Vladimir DALEY, [facility] [address], [place], [address] , [employer]. 11:06:52 Date Recorded Body weight Body mass index (BMI) Body height Systolic blood pressure Diastolic blood pressure Provider Name and Address Organization Details Last Updated DateTime 11/15/2021 472710.3 94226 g 50.4 kg/m2 157.48 cm 122 mm[Hg] 62 mm[Hg] Vladimir DALEY, [facility] [address], [place], [address] , [employer]. 15:54:47 Date Recorded Body height Body mass index (BMI) Body weight Systolic blood pressure Diastolic blood pressure Provider Name and Address Organization Details Last Updated DateTime 12/20/2021 157.48 cm 53.8 kg/m2 336791.1 5678 g 112 mm[Hg] 66 mm[Hg] Vladimir Pabarbi DALEYLázaro, [facility] [address], [place], [address] , [place] [employer] 2 11:35:33 Date Recorded Body height Body mass index (BMI) Body weight Systolic blood pressure Diastolic blood pressure Provider Name and Address Organization Details Last Updated DateTime 02/27/2022 157.48 cm 47.6 kg/m2 631746.0 162 g 116 mm[Hg] 68 mm[Hg] Vladimir Morrisjacky DALEYLázaro, [facility] [address], [place], [address] , [place] [employer] 2 15:00:53 Social History Question Answer Notes LastModified by Organizat ion Details LastModified Time Tobacco Smoking Status Never Smoker Vladimir Schwjacky AIKEN CNM, [facility] [address], [place], [address], [facility] [employer] 06/13/2021 14:47:02 What Is Your Level [...] Or The Highest Degree You Have Received? [id number] Information not available 06/13/2021 Have You Been [...] Anxious, Or Unable To Sleep At Night)? [id number] Information not available 06/13/2021 Do You Use [...] available 06/13 14:46:10 Medical History Condition Response Anesthesia complications N High blood pressure N Heart Problems N Acid reflux (GERD) N Chronic pelvic pain N Anxiety Y Blood transfusion N Blood disorders N Thyroid Problems N Kidney or Bladder Problems N Depression Y Lung Disease N Acne N Gastrointestinal Problems N Bipolar N Breast Problem N Varicose veins N Gestational diabetes N Headaches/Migraines N Incontinence/leaking urine or stool N Arthritis N High blood pressure in N Infertility N Eczema N Cancer N Anemia (low hemoglobin/iron) N Asthma N High cholesterol N Eating disorder N Endometriosis N delivery in past N Sexually transmitted infection N bleeding problems N Pelvic infection N Polycystic Ovarian Syndrome (PCOS) N Hepatitis N Fibromyalgia N Osteoporosis N Gynecological History Statement/Question Response [...] Diagnosis/Indication Diagnosis SNOMED-CT Code Diagnosis ICD10 Code [id number] WILLIAM Foster APRN, CNM [facility] [address] [place] [address] [place] [address] 06/13/2021 13:59:31 06/13/2021 17:30:21 Routine care 037407351 Z34.01 Z3A.10 E66.9 [id number] WILLIAM Foster APRN, CNM [facility] [address] [place] [address] [place] [address] 07/25/2021 15:55:26 07/26/2021 09:52:27 Routine care 709563247 Z34.02 Z3A.15 [id number] Vladimir Hagan APRN, CNM, [facility] [address] [place] [address] [place] [address] 09/19/2021 16:02:55 09/21/2021 11:01:41 Routine care 730147044 Z34.02 Z3A.23 [id number] Vladimir Hagan APRN, CNM, [facility] [address] [place] [address] [place] [address] 11/02/2021 10:02:27 11/02/2021 11:42:38 Routine care 063901491 Z34.03 Z3A.30 Z68.43 [id number] Vladimir Hagan APRN, CNM, [facility] [address] [place] [address] [place] [address] 11/15/2021 15:09:12 11/16/2021 10:01:31 Routine care 978790385 Z34.03 Z3A.32 Z68.43 [id number] Vladimir Hagan APRN, CNM, [facility] [address] [place] [address] [place] [address] 12/20/2021 11:08:49 12/20/2021 16:46:55 Routine care 496732611 Z34.03 O09.523 Z3A.37 O99.213 [id number] Vladimir Hagan APRN, CNM, [facility] [address] [place] [address] [place] [address] 02/27/2022 14:04:15 02/28/2022 10:43:36 care 586876094 Z39.2 Z87.59 Maternal p ostpartum depression screening 4686830669 92434 Z13.32 Health Concerns Section Related Observation LastModified by Organization Detai ls LastModified Time None Recorded Concern Status LastModified by Organization Details LastModified Time None Recorded Advance Directives Directive None Recorded Payers Encounter Date Sequence Insurance Name Policy Number Policy Alvarez Covered Member ID Alvarez Member ID Guarantor Name 09/19/2021 [place] [id number] Rosie K Goplen [id number] Rosie Goplen 11/02/2021 1 [place] [id number] Rosie K Goplen [id number] Rosie Goplen 11/15/2021 [place] [id number] Rosie K Goplen [id number] Rosie Goplen 12/20/2021 [place] [id number] Rosie K Goplen [id number] Rosie Goplen 02/27/2022 1 [place] [id number] Rosie K Goplen [id number] Rosie Goplen Notes Date Note Type Note Provider Name and Address Organization Details Recorded Time 09/19/2021 text/html HPI Notes: This is a 36 year old presenting to the clinic for an EVETTE at 23.5 weekd gestation. See prentatl entry. Feeling well, no concerns. Anatomy U/S at [place] and [facility] Obtained a rn neurosurgical and excited to meet with her. Next visit in 4 weeks at [place]. WILLIAM Foster APRN, CNM [address] [facility] [address], [address], [facility] [employer] 09/19/2021 16:53:46 11/02/2021 text/html HPI Notes: [...] about ?NO WILLIAM Foster APRN, CNM [address] [facility], [place], [address], [facility] [employer] 11/02/2021 11:19:37 11/15/2021 text/html HPI Notes: Feeli ng well, no concerns. See OB flowsheet. Vladimir Danya DALEY, [facility] [address] [facility] [address], [place], [address], [facility] [employer] 11/15/2021 18:09:10 12/20/2021 text/html HPI Notes: Prese [...] habitus, estimate was difficult. Still goes to turning sander tender and chiropractor every week, along with massage once/week. Does not feel ready for baby, but ready for to be done. Was able to obtain another rn neurosurgical, Sandra [place]. No growth U/S at [place], WNL. GBS negative. Remainder of EVETTE at [place], will schedule for 1 week. Labor S/S reviewed. Vladimir Hagan APRN, CNM, [facility] [address] [facility] [address], [place], [address], [employer] 12/20/2021 12:55:57 02/27/2022 text/html HPI Notes: [...] 41.3 weeks Date of : 01/19/2022 site: [facility] Complications of labor/: Postdates IOL (3 days), Late onset Pre-eclampsia, thick meconium- C/S for CPD, FTP, AOD Pertinent complications/histo ry: Nullip, obesity, AMA Feeding: exclusive breast, going well. Concerns about nursing: none. Baby gaining wt well. Denies any hospitalizations. Has been seen at peds provider: [facility] Bleeding: lochia ceased at 4 weeks. [...] 60 minutes. Vladimir Hagan APRN CN, [facility] [address] [facility] [address], [place], [address], [facility] [employer] 02/28/2022 11:49:01 OBGyn Episode Ob Episode Information Episode Created Date Number of Fetuses Patient Bloodtype Patient rh Status Prepregnancy Weight lbs Domestic Partner Domestic Partner Phone Father Name Still Tender Status 06/13/19 22 1 A Positive 255 Rod CLOSED Fetus Data First Name Last Name Admitted to NICU Weight (g) Sex Living Outcome Pediatric Complications Fetus ID Race Codes Race Delivery Type Memo rubio n false 4394.17 25 F true Full Term thick meconium 11096 declin ed Patie nt Decli claudette C-/T OL C-/V E/forceps Problems Problem Notes Problem Name Start Date End Date Resolution Snomed Code Not e Generalized obesity 06/13/2021 [id number] BMI=45.4. Reviewed may not be a CNM candidate for delivery. Discussed options, patient desires delivery at [place]. HgbA1c= 5.1%; early 1 hr gtt= 134. Anxiety 06/13/2021 14203346 EPDS= 8 a t NOB. Declined talk therapy. Is able to recognize triggers and resolutions. 12/20- Mood stable- Advanced maternal age 06/13/2021 [id number] Will be 36 at E DD. Encouraged baby ASA at 12 weeks gestation. 12/20- not currently taking, using natural supplements guided by Dr. Persaud (chiro) Obesity 12/20/2021 207011235 2: BMI= 53. Weight gain in ~40 lbs. Has a turning sander tender she meets once/week. 06/13/2021 38971689 Shared mo del of care with [facility] service. NOB labs completed at [place]- reviewed.12/20- Has alvarez- Christa Calculation Initial Christa [...] was unplanned but welcomed. Monogamous relationship with oRd x 9 years. Feeling well with occasional nausea, resolved with increase in protein and frequent snacking. Follows a clean, whole food diet d/t prior history of gut inflammation. Was seen initially at [facility] [place] it was very medical and her questions were not answered- which resulted in feeling very overwhelmed and a bit ashamed. Desires a natural, holistic approach to care. Reviewed 1st trimester care extensively, then what to expect in her course. Reviewed shared model of care. Encouraged to keep appt with CNM at [place] at 12 weeks, instructed to ask their [...] about and feels very alone with it, [employer] is getting very busy with supply and [...] happens and the normalcy. Is seeing a turning sander tender weekly, encouraged to keep doing so. Early 1 hr gtt done today= 134, patient indicated that she has eaten a lot of sweets this past week due to her birthday and her sisters birthday. It was encouraged to start baby ASA at 12 weeks, patient is taking it intermittently and taking Reishi mushroom spores encouraged by her leather goods sales representative. Was feeling like her hgb was low- [...] the . EVETTE in 4 weeks at [place] for anatomy U/S and EVETTE. Flowsheet Date [...] well. 1ht gtt, labs next visit at [place]. Flowsheet Date 11/02/2021 Callahan Score Blood Edema [...] well. Monitored BS x 1 week per [place]- Fasting BS 77-85 with 1hr PP having 1 elevation. Reviewed this with [place] CNM service. She has been requested to have a growth U/S at 32 and 34 weeks and does not feel she needs both, so desires U/S at 34 weeks. Meeting alvarez next week, excited about that to prep for labor and . [id number] was diagnosed with uterine, liver and gall bladder cancer. She recently had surgery and soon will start Chemo- despite this stressor, Delmis feels she and partner are coping well. Plans to breastfeed. Tdap at [place]. PTL S/S, kick counts reviewed. No concerns at this point- reviewed remainder of and visits. RTC in 2 weeks, then remainder of PNC at [place] to preserve continuity. Flowsheet Date 11/15/2021 Callahan [...] lot of the cares. Met with the [employer], discussed plan, and follow up care PP. Feels more prepared after discussing options for upcoming /labor. Plans to breastfeed. Reviewed comfort measures for uterine cramping: hydration, /maternal movement, regular BM, round ligament discomfort, and activity. Denies urinary symptoms. Lots of movement noted. RTC in 2 weeks at [place]- watch fundal height. Continues to see chiropractor every 2 weeks and turning sander tender meetings. Last Hgb at 28 weeks= 11.8. Flowsheet Date 12/20/2021 Callahan Score Blood Edema Fundus Height Fundus Units Glucose Ketones Leukocytes Nitrite Labor Signs Protein Cervic Dilation Cervic Effacement Cervic Station 37 wks [place] Franco Type Weight in lbs BP Diastolic [...] habitus, estimate was difficult. Still goes to turning sander tender and chiropractor every week, along with massage once/week. Does not feel ready for baby, but ready for to be done. Was able to obtain another rn neurosurgical, Sandra [place]. No growth U/S at [place], WNL. GBS negative. Remainder of EVETTE at [place], will schedule for 1 week. Labor S/S [...] history or Carrier of Cystic Fibrosis false Carlisle's Chorea false Family history of Intellectu al [...]
--- OUTSIDE RECORDS SUMMARY | 2024-02-20 06:12 | XMS_ITS | Continuity of Care Document ---
Author Organization [place] [facility], [facility] - Main Office Address [address] [place] [address] [place] [phone] Assessment Encounter Date Assessment Date Assessment LastModified by Organization Details LastModified Time 12/11/2023 12/11/2023 1. EVETTE at 28.1 weeks gestation. 2. Obesity. - Reviewed blood sugars, 8 elevations = 65% compliance. Encouraged to continue QID blood sugars until next CNM visit at [facility]. - Discussed nutrition/hydra tion in 3rd trimester. - Declines Tdap after informed discussion. - CBC/Ferritin obtained today. - Discussed apron trimmer services, past trauma and mood stabilization. Reviewed 1st 40 days nutrition. - RTC in [facility] in 2 weeks. Time spent face to face for routine ob in third trimester and coordinating a plan of care was 60 minutes. [email or web address] Not available 12/11/2023 11:40:52 Plan of Treatment Reminders Order Date Submit Date Provider Last Modified By Organization Details Last Modified Time Details Appointments None recorded . Lab ferritin , serum or plasma 024 12/11/19 [facility], [address] [place], [address], 4 05:26:38 CBC 024 12/11/19 [facility], [address] [place], [address], 4 05:26:37 Referral None recorded . Procedures None recorded . Surgeries None recorded . Imaging None recorded . Medication Orders None recorded . Patient TargetsNo targets recorded. Patient InstructionsNo instructions recorded. Reason for Referral None Reported. Problems Name Problem SNOMED Code Status Onset Date Resolution Date Notes Provider Name and Address Organization Details Recorded Time Pregnanc y 79023205 Active 2023 Shared model of care with Avni Hagan APRN, CNM, [facility] [address] [place] [address], [place], [address] , [place] - [facility] 4 17:46:56 Obesity 385731265 Active 2021 Has a nutritio nist she meets once/mitul marquez HgbA1c per NOB= 5.1% Vladimir Hagan APRN, CNM, [facility] [address] [place] [address], [place], [address] , [place] - [facility] 4 17:46:55 Past pregnanc y history of section 613335296 Active Desires TOLAC Vladimir Hagan APRN, CNM, [facility] [address] [place] [address], [place], [address] , [place] - [facility] 4 17:46:55 Past pregnanc y history of pre-ecla mpsia 26585475491 9100 Active 202111/19/23 : Reviewed BL labs, WNL. Reviewed increase d risk factor for CVD, diabetes , autoimmu ne d/o later in life. [facility] ed baby ASA, to initiate 12-16 weeks. Develope d at 41.3 weeks gestatio n with IOL. [facility] ed to add BL pre-ecla mptic labs to NOB. Vladimir Hagan APRN, CNM, [facility] [address] [place] [address], [place], [address] , [place] - [facility] 4 14:30:37 Pregnanc y 88712090 Active 2023 Shared model of care with Avni Hagan APRN, CNM, [facility] [address] [place] [address], [place], [address] , [place] - [facility] 4 17:46:56 Past pregnanc y history of pre-ecla mpsia 28617851229 9100 Active 202111/19/23 : Reviewed BL labs, WNL. Reviewed increase d risk factor for CVD, diabetes , autoimmu ne d/o later in life. [facility] ed baby ASA, to initiate 12-16 weeks. Develope d at 41.3 weeks gestatio n with IOL. [facility] ed to add BL pre-ecla mptic labs to NOB. Vladimir Hagan APRN, CNM, WILLIAM [address] [place] [address], [phone] , [facility] 4 14:30:37 Mixed anxiety and depressi ve disorder 972438247 Active 2021 Not Available [facility] 4 20:08:33 Obesity 799114114 Active 2021 Has a nutritio nist she meets once/mitul marquez HgbA1c per NOB= 5.1% Vladimir Hagan APRN, CNM, VINEET [address] [place] [address], [address] , [facility] 4 17:46:55 Pregnanc y 34159313 Completed 202102/27/2022 Shared model of care with [facility] service. NOB labs complete d at [facility]- reviewed . 12/20- Has apron trimmer- Vladimir Hagan APRN, CNM, [facility] [address] [place] [address], [phone] , [facility] 4 11:06:26 Problem Notes None recorded. Procedures Surgical History Date Name Laterality Status Provider Name and Address Organization Details Recorded Time 2 Date of Last Pap Smear completed Not Available [facility] 08/06/2023 20:07:34 extraction of wisdom tooth completed Not Available [facility] 08/06/2023 20:06:47 Imaging Results None recorded. Procedure Notes None recorded. Medical Equipment None Reported. Allergies Allergen ID Allergen Name Allergen Category Reaction Reaction Severity Criticality Documentation Date Start Date Code Code System Note Provider Name and Address Organization Details Recorded Time 301 adhesive tape environme nt,medica tion itching Not available low 08/28/2023 ALEENA DUEÑAS, RN [address] , [place], [address], [facility] 10:23:10 Medications Name [...] Available Not Avail able Not Available zinc 0,38904 active Not Available Not Avail able Not [...] Updated DateTime 12/11/2023 157.48 cm Vladimir giles, LEAK HUNTER, CNM, WHNP [address], [place], [address], [place] - [facility] 12/11/2023 10:09:24 Date Recorded Body mass index (BMI) Body weight Systolic blood pressure Diastolic blood pressure Provider Name and Address Organization Details Last Updated DateTime 12/11/2023 52.3 kg/m2 528248.42 g 120 mm[Hg] 74 mm[Hg] ALEENA DUEÑAS, RN [address] , [place], [address] , [place] - [facility] 12/11/2023 10:17:53 Social History Question Answer Notes LastModified by Organizat ion Details LastModified Time Tobacco Smoking Status Never Smoker Not Available [facility] 08/06/2023 20:06:58 What Is Your Level Of Alcohol Consumption? Moderate Pre-pregnanc y MIGRATION.58050 91154 Information not available 08/06/2023 Are You Blind Or Do You Have Difficulty Seeing? No MIGRATION.70708 93270 Information not available 08/06/2023 Are You Currently Employed? Yes MIGRATION.17203 45427 Information not available 08/06/2023 Are You Deaf Or Do You Have Serious Difficulty Hearing? No MIGRATION.10256 16705 Information not available 08/06/2023 What Type Of Diet Are You Following? REGULAR MIGRATION.80714 73416 Information not available 08/06/2023 What Is The Highest Grade Or Level Of School You Have Completed Or The Highest Degree You Have Received? [id number] MIGRATION.72773 40068 Information not available 08/06/2023 Have You Been Exposed To Chemicals Or Toxins? No MIGRATION.93003 49841 Information not available 08/06/2023 Have You Been Exposed To Heavy Metals? No MIGRATION.08513 45023 Information not available 08/06/2023 Have There Been Any Changes To Your Family Or Social Situation? No MIGRATION.00817 22273 Information not available 08/06/2023 Do You Have Any Transportation Challenges? No MIGRATION.91195 08925 Information not available 08/06/2023 Do You Have Enough Food To Eat? Yes MIGRATION.40795 74454 Information not available 08/06/2023 Do You Have People In Your Life You Can Reach Out To For Help Yes MIGRATION.32419 63407 Information not available 08/06/2023 Have You Ever Experienced Abuse From Family Members, Friends, Past Relationships, Etc? No MIGRATION.27809 87839 Information not available 08/06/2023 Have You Ever Been Hit/kicked/slappe d Or Raped In Your Current Relationship? No MIGRATION.62678 44860 Information not available 08/06/2023 Have You Been Exposed To Heavy Metals? No Information not available 08/28/2023 Have You Been Exposed To Chemicals Or Toxins? No Information not available 08/28/2023 Do You Experience Mental Or Emotional Abuse In Your Current Relationship? No MIGRATION.49730 41500 Information not available 08/06/2023 Are You A Survivor Of Abuse? No MIGRATION.65642 59546 Information not available 08/06/2023 What Is Your Relationship Status? Domestic Partner MIGRATION.56761 98211 Information not available 08/06/2023 Are You Sexually Active? Yes MIGRATION.86659 83917 Information not available 08/06/2023 Are You Passively Exposed To Smoke? Yes Childhood MIGRATION.64399 32055 Information not available 08/06/2023 Do You Feel Stressed (tense, Restless, Nervous, Or Anxious, Or Unable To Sleep At Night)? [id number] MIGRATION.03041 16920 Information not available 08/06/2023 Do You Use Any Illicit Or Recreational Drugs? No MIGRATION.22605 76934 Information not available 08/06/2023 Do You Have Any Dietary Restrictions? No [email or web address] Information not available 08/28/2023 Do You Or Have You Ever Used Any Other Forms Of Tobacco Or Nicotine? No MIGRATION.27542 18555 Information not available 08/06/2023 Sex: Unknown Functional Status Question Answer Note LastModified by Organizat ion Details LastModified Time Do you have difficulty walking or climbing stairs? No MIGRATION.2181981 000 Information not available 08/06/2023 Do you have transportation difficulties? No MIGRATION.0310349 000 Information not available 08/06/2023 What is your exercise level? Moderate MIGRATION.0629605 000 Information not available 08/06/2023 Mental Status Question Answer Note LastModified by Organizat ion Details LastModified Time Do you have difficulty concentrating, remembering or making decisions? No MIGRATION.[id number] 0 Information not available 08/06/2023 Family History Relationship Description Onset Age of this Age Resolved Age Notes LastModified by Organization Details LastModified Time Sister Polycystic ovary syndrome [id number] Not available 08/06/2023 20:07:42 Medical History Condition [...] [id number] Vladimir Hagan APRN, CNM, WHNP [facility] [address] [place] [phone] 11/19/2023 14:05:29 02/12/2024 15:57:06 Routine care 321382098 Z34.82 O99.212 Z3A.25 4241 Vladimir Hagan APRN, CNM, WHNP [facility] [address] [place] [phone] 12/11/2023 09:54:06 02/12/2024 15:57:42 Routine care 336861943 Z34.83 Z3A.28 O99.213 Health Concerns Section Related Observation LastModified by Organization Detai ls LastModified Time None Recorded Concern Status LastModified by Organization Details LastModified Time None Recorded Payers Encounter Date Sequence Insurance Name Policy Number Policy Alvarez Covered Member ID Alvarez Member ID Guarantor Name 12/11/2023 1 [place] [id number] Rosie Stein [id number] Notes Date Note Type Note Provider Name and Address Organization Details Recorded Time 12/11/2023 text/html HPI Notes: Presents alone for EVETTE at 28.1 weeks gestation. Feeling well, no concerns. 1hr gtt/labs today, declines 1hr gtt and desired QID testing. Reviewed 1 week of blood sugars and are in 65 % compliance. Encouraged to test x 1 more week and verify with [facility] their compliance parameters. Patient has struggled with [...] to invest in book and connect with Vector Control Specialist for preparation. CBC/Ferritin today. Rh positive. Encouraged next visit with midwives in [facility] to discuss: blood sugars, anxious feelings regarding previous trauma, and facilitate apron trimmer connection. Vladimir Hagan APRN, CNLázaro, WHNP [address] [place] [address], [phone], [place] - [facility] 12/11/2023 11:42:24 OBGyn Episode Ob Episode Information Episode Created Date Number of Fetuses Patient Bloodtype Patient rh Status Prepregnancy Weight lbs Domestic Partner Domestic Partner Phone Father Name Suit Attendant Status 08/28/19 24 1 A Positive 270 Rod OPEN Fetus Data First Name Last Name Admitted to NICU Weight (g) Sex Living Outcome Pediatric Complications Fetus ID Race Codes Race Delivery Type 201 Problems Problem Notes Problem Name Start Date End Date Resolution Snomed Code Not e Past history of pre-eclampsia 02/27/2022 [id number] 11/19/23: R nelawed BL labs, WNL. Reviewed increased risk factor for CVD, diabetes, autoimmune d/o later in life. Encouraged baby ASA, to initiate 12-16 weeks. Developed at 41.3 weeks gestation with IOL.Encouraged to add BL pre-eclamptic labs to NOB. 08/28/2023 [id number] Shared mo del of care with [facility] Obesity 12/20/2021 023546104 Has a nut ritionist she meets once/week. HgbA1c per NOB= 5.1% Past history of section 799098171 Desires CRYSTAL AC Keith Calculation Initial Keith [...] Is planning shared model of care with [facility] as she risks out of care d/t previous C/S, obesity (BMI=50) and hx/o pre-eclampsia. Encouraged baby ASA as she is not currently taking it. Also encouraged for [facility] to add BL pre-eclamptic labs and a TSH (with topical iodine use) to assure stability. Patient to [facility] etcher photoengraving and will return to [facility] for lab draws. Offered to draw labs here, but desires [facility] as she will deliver there. Discussed previous [...] child or complications Continues chiro care and credit and collections representative care. Anatomy U/S with CNM visit already scheduled at [facility] in 4 weeks. Still needs to complete [...] Baby ASA, midwives ok with this via [facility]. Still going to chiropractor. Discussed repeat C/S vs IOL vs natural labor/. Plans on same apron trimmer for support as last . Will decline 1hr gtt, has supplies for QID testing and plans to start at 27 weeks and we will review at 28 weeks and will do labs at that time. Will decline Tdap- CNM in [facility] ok with this shared care. Mood stable, [...] x 1 more week and verify with [facility] their compliance parameters. Patient has struggled with [...] to invest in book and connect with Vector Control Specialist for preparation. CBC/Ferritin today. Rh positive. Encouraged next visit with midwives in [facility] to discuss: blood sugars, anxious feelings regarding previous trauma, and facilitate apron trimmer connection. Flowsheet Date 01/22/2024 Callahan Score Blood [...] Feeling well, no concerns. Was seen in [facility] last visit, went well. Discussed BS parameters, within normal limits and was able to connect with Vector Control Specialist, encouraged to discuss and prepare for upcoming [...] Feeling quite well, no concerns. GBS in [facility]- reviewed this was negative. Had an OB [...] continue these discussions with providers, partner and apron trimmer. Established good rapport with alvarez, who has [...] and baby. Resume remainder of PNC in [facility]. Mood stable. Menstrual History Last Menstrual Date Menses Monthly On Bcp Conception Prior Menses Frequency Hcg Plus Date Menarche Onset Age 0205/28/2023 true 30 Genetic Screening And Infection History Question Response Note Patient's Age Will Be 35 Yea rs Or Older At Estimated Date of Delivery true Thalassemia (Honduran, Citizen Of [place], Mediterranean, Or Background): MCV < 80 false Neural Tube Defect (Meningom yelocele, Spina Bifida, Or Anencephaly) false Congenital Heart Defect false Down Syndrome false Raul-Sachs (eg, Gnosticism, Cajun , Urdu-Lima) false Ritesh Disease false Sickle Cell Disease Or Trait () false Hemophilia Or Other Blood Disorders false Muscular Dystrophy false Cystic Fibrosis false Winfield's Chorea false Intellectual Disability/Autism false If Yes, [...] Discuss ed By 12/11/2023 Initial Labs [facility]fered/[facility]11[facility]2023 C[facility] 12/11/2023 Nutrition/Hydration reassessment done [place] [address] 12/11/2023 Selecting a care provider [place] [address] 12/11/2023 Free from intimate partner violence [place] [address] Third Trimester Discussed Date Discussion Item Discussion Note Discuss ed By 12/11/2023 Signs and symptoms o f preeclampsia [place] [address] 12/11/2023 [place] [address] 01/22/2024 Benefits of apron trimmer/referrals [place] [address] 01/22/2024 Discussion regarding plan Discussed- review with Alvarez [place] [address] 12/11/2023 TDaP offered (ration melanie, R/B/A, VIS provided) Declined after informed discussion [place] [address] 12/11/2023 Problem List Updated [place] [address] 12/11/2023 Reviewed required CB C, drawn between 24-30 weeks [place] [address] 01/22/2024 S/sx of labor, when to call, etcher photoengraving certified personal trainer #. [facility] 12/11/2023 Nutrition/Hydration reassessment done [place] [address] 12/11/2023 movement monitoring [place] [address] 02/12/2024 depression [facility] 01/22/2024 RSV vaccine offered 32-26 wks Declined [place] [address] Delivery Information Delivery Date Delivery Type Labor Anesthesia Weeks Gestation Incision Type Labor Labor Length Hrs Delivered By Post Complications Tubal Sterilization Discharge Date Comments Discharge Information Feeding Method Contraceptive Method Maternal HG B and HCT Levels
--- NOTE | 2024-02-20 07:27 | P.LDBA_ITS ---
Subjective History of Present Illness Time Seen by Provider: 06:50 Date Seen: 02/20/24 Narrative: Patient is being admitted to Labor and Delivery for scheduled repeat . She is a 38 year old at 38w2d gestation. Her full history and physical was dictated by Paramjit Serrano on 02/17/24. Please see this for details. is complicated by uncontrolled, largely unmonitored GDM. She was diagnosed by 1 week of QID BG monitoring at an outside facility (declined glucola), during which 35% of values were elevated. She was diagnosed with GDM and recommended to meet with nutrition, declined as she was previously working with a staff certified nurse midwife. She declined further QID BG monitoring. She tells me this morning that she checked her BG occasionally, where postprandial values were within normal limits but her fasting values were elevated. By EMR review and provider discussions, she was recommended to have serial growth US and weekly testing for GDM and prepregnancy class 3 obesity but declined these. Patient notes she was never told she was diagnosed with GDM nor recommended to undergo this evaluation. She notes on Friday she was told she has GDM and macrosomia and that she was recommended to be delivered. She declined, but was open to proceeding today. She was counseled by Dr. Caputo regarding medically indicated delivery in the early term period given her uncontrolled GDM as evidence by minimal BG monitoring and macrosomia. Specifically, EFW is 4519g at >97%ile, cephalic presentation, MVP 5.3cm and bilateral pyelectasis was noted. This morning, I was notified by L&D RN that patient was not certain about proceeding. Presented the bedside, where Rosie noted concern with proceeding today rather than at 39 weeks. I explained her course and the diagnosis of GDM, where her glycemic control is unknown but there is evidence of response to hyperglycemia in the setting of macrosomia as insulin is a growth factor to baby. In addition, patient notes that she has had elevated fasting sugars when she did check. In this setting, our diagnosis is poorly controlled gestational diabetes during which ACOG recommends individualized approach but a general time line of late to early term delivery. I e xplained at 38 weeks and 2 days she is well with in the early term period. If her gestational diabetes well controlled, I did explain that then we would delay until 39 weeks. I explained the risks of poorly-controlled gestational diabetes including macrosomia, polyhydramnios, intrauterine demise, hypoglycemia, jaundice and respiratory distress syndrome. I reinforced that her delivery will be high risk with regard to condition where he requested pediatric provider, not in the setting of her gestational age but rather due to the increased risk of respiratory distress in the setting of macrosomia and poorly controlled GDM. In addition, Rosie is at significantly increased risk of adverse outcomes of and delivery in the setting of class 3 obesity. That said, I affirmed that of course it is her body and she can decline our medical recommendation to proceed with delivery given autonomy. If that were the case, I would strongly recommend proceeding at 39 weeks 0 days gestational age and explained she would require twice weekly testing and q.i.d. blood glucose monitoring in the interim. After extensive counseling and discussion with her family/rn on site, Rosie agrees to proceed with repeat today. Risks of were reviewed including bleeding, infection, damage to surrounding structures. Explained she is at increased risk of infection postoperatively given BMI, where silver dressing will be utilized. Return precautions reinforced. Patient would be agreeable to blood transfusion if nee ded. Finally, I again reinforced that I can never anticipate the disposition of the after delivery but certainly her has been high risk. Explained that Pediatrics provider will assess it and respiratory support/NICU care could be required for any patient regardless of gestational age. Patient initially declined all baby meds on her plan, but after counseling by myself this morning she is now agreeable to vitamin K. Specific Issues/Plans S.O. Rod. Daught/er: Phyllis Baby: [place]! Shared care with [facility] ([facility]) H&P completed 02/17/2024-please inquire on admit what we can do to focus on the walt of meeting her baby and soften the PTSD from the scenario in the past. -Hx previous C/S desiring TOLAC: arrest of dilation baby was 9#11oz. needs OB consult: done 02/03/2024 growth at 36 weeks: Ordered on 02/04/2024 Chance of successful : 7.3%. Encouraged Repeat : patient declined. Consent signed 02/03/2024 Is open to IOL -AMA >35 years Recommended genetic screening, declined recommend 20 wk level II US with M[facility]: declines, completed after follow-up was recommended -Hx Severe Preeclampsia IOL for PreE, developed severe features in labor on Mag recommended baby ASA at 12wks Baseline labs T/P ratio 0.34, recommended 24 urine collection: 0.28 - BMI >50 Hgb A1C at NOB: 5.1 Declined 1hr GTT, did QID blood sugar x1 week 35% elevated = GDM Was told to continue to check BS QID x 1 additional week and review w/ us at her next appointment (02/03/2024). Declined to do. Declined US for EFW. Referral to staff certified nurse midwife-pt is already working with a staff certified nurse midwife anesthesia referral: Did previous , declines doing this OB consult (will need for TOLAC) 20 wk level II US with [facility]: Declines, strongly recommended; Referral placed after missing heart views with anatomy scan Early GDM screening pt did 2 wks of testing last preg, declines here Weekly BPP and/or NST starting at 34 weeks per [facility] Growth US at 28 and 34 wks per [facility]: Pt declines - Missing cardiac views on anatomy US, heart possibly stopped during exam but not able to capture video Level II completed 10/27, no concerns -Prominent bilateral renal pelves: noted on 02/16 growth US. -Uncontrolled GDM: Pt not aware of elevated glucose from screening at an outside facility, nor that qualifications for GDM were met per her report. Ultrasound: Basic Anatomy Scan: Incomplete cardiac views, SDP 4.9, posterior placenta, EFW 75%ile, FHR 154, heart was reported to pause/stop twice during exam; Level II referral placed Level II 10/28/2023: [facility]: No anomalies identified. Growth parameters are consistent with CHRISTA. EFW 78%ile. Recommend Growth US at 28 and 34 weeks based on BMI and weekly testing starting at 34 weeks. Covid: Declined 02/03/2024 Flu: Declined 02/03/2024 Tdap: Declined in records and on 02/03/2024 @[facility] RSV: Declined 02/03/2024 OB - Problem Based A/P Additional Plan (1) Gestational diabetes mellitus (GDM): Problem details: Not controlled Status: Acute (2) Dilation of renal pelvis of fetus: Status: Acute (3) History of section complicating : Status: Acute (4) Hx of preeclampsia, prior , currently : Status: Acute (5) Rubella non-immune status, antepartum: Problem details: denies any immunization Status: Acute (6) Obesity, morbid, BMI 50 or higher: Status: Acute (7) AMA (advanced maternal age) primigravida 35+: Status: Acute Plan Rosie is a 38yo seen at 38w2d GA admitted for repeat delivery. is complicated by uncontrolled on monitor gestational diabetes, class 3 obesity (BMI 56), history of delivery, AMA, bilateral renal dilation of the pelvis. Patient was initially hesitant to proceed this morning, please see details above for my extensive counseling. After discussion of risks, benefits and alternative she is agreeable to repeat delivery today. I again affirmed that timing of delivery is medically indicated per ACOG guidelines at the setting of poorly controlled GDM. Reviewed the risks, benefits and alternatives to today versus at 39 weeks and anticipated potential adverse outcomes in the setting of poorly controlled GDM. - After this counseling, written consent for repeat was initialed by myself. Consent was previously signed by patient and Dr. Caputo on 02/16. - Plan 3 g of perioperative Ancef - Silver dressing given increased risk of infection - Blood type A positive, obtaining active type and screen and hemoglobin this morning. - GBS negative - EFW 4519 g, pediatric provider requested at delivery given poorly controlled GDM - plan details reviewed, where I explained delayed cord clamping for 30s is standard during to optimize outcome but decrease risk of PPH. Patient expressed understanding and is agreeable. She is agreeable to vitamin K after counseling, declined hepB/erythromycin. OB Exam Physical Exam Vital signs: Temp Pulse BP Pulse Ox 98.7 F 90 130/74 95 02/20/24 06:57 02/20/24 06:56 02/20/24 06:56 02/20/24 06:56 Narrative: General: Alert and oriented, no acute distress Psych: Appropriate mood and affect Abdomen: Gravid. heart rate: Reactive NST. Baseline is 130 beats per minute, moderate variability, accelerations present, decelerations absent. [place]: No appreciable uterine contractions
--- NOTE | 2024-02-20 07:55 | W.ANESCHARGE ---
Anesthesia Charges Start Date/Time Anesthesia Start Date: 02/20/24 Anesthesia Start Time: 08:40 Stop Date/Time Anesthesia Stop Date: 02/20/24 Anesthesia Stop Time: 10:21
[2024-02-20] MEDS: LACTATED RINGERS 1000 ML 1,000 ML 1200 ML IV (08:05)
[2024-02-20 08:44] LABS: Basophils Absolute Auto 0.02 K/uL (0.00-0.30); Basophils Percent Auto 0.2 % (0.0-3.0); Eosinophils Absolute Auto 0.08 K/uL (0.00-0.50); Eosinophils Percent Auto 0.7 % (0.0-7.0); Hematocrit 38.7 % (33.0-51.0); Hemoglobin* 12.9 gm/dL (12.0-16.0); Immature Granulocytes Abs Auto 0.06 K/uL (0.00-0.30); Immature Granulocytes Pct Auto 0.6 %; Mean Corpuscular HGB Conc 33 gm/dL (32-36); Mean Corpuscular Hemoglobin 30 pg (26-34); Mean Corpuscular Volume 91 fL (80-100); Monocytes Percent Auto 7.8 % (0.0-11.0); Neutrophils Percent Auto 75.7 % (42.0-72.0); Platelet Count* 224 K/uL (140-440); RDW Coefficient of Variation % 13.6 % (11.5-15.5); Red Blood Count 4.25 m/uL (4.00-5.20); White Blood Count* 10.79 K/uL (4.50-11.00)
[2024-02-20 08:46] LABS: Slide Review Reflex No
[2024-02-20] MEDS: CEFAZOLIN 1 GM inj 3 GM IVP (09:00)
[2024-02-20] MEDS: LACTATED RINGERS 1000 ML 1,000 ML 125 ML IV (09:20)
--- NOTE | 2024-02-20 09:23 | SUR.OPER ---
patient declines sending placenta; confirmed with surgeon
--- NOTE | 2024-02-20 09:29 | W.ANESCHARGE ---
Anesthesia Charges Start Date/Time Anesthesia Start Date: 02/20/24 Anesthesia Start Time: 08:40 Stop Date/Time Anesthesia Stop Date: 02/20/24 Anesthesia Stop Time: 10:21
--- NOTE | 2024-02-20 09:30 | W.PM.NB ---
Nerve Block Nerve Block Time Seen by Provider: 10:15 Date Seen: 02/20/24 Type of block requested by surgeon for post-operative analgesia: TAP Side: bilateral Time out performed: Yes Verification of patient name: Yes Verification of date of : Yes Site marking: site marked Name of person performing procedure: Jeremiah Spaulding Continuous monitoring Was continuous monitoring of O2 sat, B/P, nuclear monitoring technician, recorded every 15 minutes?: Yes Procedure Checklist: sterile prep, needles and gloves Ultrasound guided. Images saved: Yes Medications given in 5ml increments after negative aspiration: Marcaine %: 0.25 mL: 30 Needle gauge: 20 and Exparel mL: 10 Needle gauge: 20 Patient tolerated procedure well: Yes Additional comments: Injected in 5ml increments after negative aspiration Block Charges Block Charge (with Pro Fee): TAP Bilateral Use of Ultrasound Machine for Block: Yes- US Guidance/pain block
[2024-02-20] MEDS: KETOROLAC 30 MG/ML inj IVP (09:46)
--- NOTE | 2024-02-20 12:06 | P.OBPRC_ITS ---
Procedure Time Seen by Provider: 09:15 Date of procedure: 02/20/24 Pre-op diagnosis: Poorly controlled GDM, AMA, class 3 obesity, prior , 38 weeks GA Post-op diagnosis: same Procedure Done: Global Will [facility] bill your pro fee for this procedure?: Yes Blood Loss Measurement Type: QBL (282) Bakri Used: No IV fluids (mL): 1,300 Urine Output (mL): 100 Surgeon: Kelly Miller MD Helpdesk Manager: Dr. 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 She received cefazolin in preoperative prophylaxis. Spinal anesthesia was administered. Ascencio catheter was inserted. She was prepped and draped in the usual sterile fashion. Anesthesia was tested and found to be adequate. A low-transverse skin incision was made with a scalpel and carried through to the underlying layer of fascia with the scalpel through her prior Pfannenstiel incision. The subcutaneous fat was dissected off the underlying fascia with Bovie and blunt dissection. The fascia was nicked in the midline with a scal pel, and this incision was extended laterally with scissors. Adhesive disease was noted primarily at the midline between the rectus abdominus and underlying musculature and preperitoneal fat. The rectus muscles were in the midline. Peritoneum was identified and entered bluntly. The omentum was noted to be adhesed to the anterior abdominal wall, taken down with electrocautery. Excellent hemostasis confirmed. Bovie and blunt dissection were used to widen this opening laterally. Ru O retractor was inserted and tightened down, providing excellent visualization of the lower uterine segment. The bladder reflection was found to be advanced along the lower uterine segment. A bladder flap was created with a combination of sharp and blunt dissection. Low-transverse uterine incision was made with a scalpel. Incision was widened bluntly. The 's head was grasped through the hysterotomy and elevated to the hysterotomy. The remainder of the body delivered without incident with the help of fundal pressure. No nuchal cord was noted. Cord was clamped and cut after 30 seconds. Infant was handed off to attending nurses and Pediatrics provider. The placenta was delivered with gentle traction on the cord. The uterus was cleaned of all clots and debris with the dry lap pad. The hysterotomy was reapproximated with 0 Vicryl in a running, locked fashion. Second layer of the same suture was used in imbricating fashion to obtain hemostasis. The adnexa were examined and noted to be normal in appearance. The cul-de-sac and gutters were cleansed with dampened laparotomy sponge, removing any further clots and debris. The Ru O retractor was removed. The hysterotomy was reexamined and found to be hemostatic. The rectus muscles were examined and found to be hemostatic. The fascia was reapproximated with looped 0 PDS in a running fashion. Subcutaneous fat was irrigated and Bovie used on oozing vessels. The subcutaneous fat was reapproximated with 2 0 Vicryl suture in a continuous fashion] The skin was closed with a subcuticular stitch of 3-0 monocryl. Silver dressing was applied. Patient tolerated procedure well was taken to recovery area in stable condition. Surgical debrief was completed. details: - Liveborn male fetus - weight: 4240g - APGARs were 8 and 9 at 1 and 5 minutes respectively Complications: None Pathology: specimen obtained, sent to pathology (Patient requested placenta for encapsulation. She was agreeable to placental biopsy including a component of the placental disc, membranes and segment of umbilical cord. This was sent to pathology. 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 ) Surgery Debrief Performed: Yes Condition: stable Disposition: floor
[2024-02-20] MEDS: ENOXAPARIN 40 MG/0.4 ML INJ SUBCUT (22:25)
[2024-02-21] VITALS (12 sets, daily range): BP systolic 87–123; BP diastolic 55–81; PULSE 79–94; RESP 15–20; TEMP 36.7–37.1; O2SAT 95–97
[2024-02-21 06:24] LABS: Hemoglobin* 12.2 gm/dL (12.0-16.0)
--- NOTE | 2024-02-21 09:48 | PM.OBPNVD1 ---
OB - PN:Subj Subjective Date Seen: 02/21/24 Patient comments OB post-: no complaints and tolerating diet status: Narrative: The patient feels well this morning. The pena catheter was removed last evening. She is ambulating without difficulty. Pain is well-controlled. Overall, she states that the section experience was better than her first. is going well. Fasting BS was not checked this morning. Patient declined 2-h GTT to rule out type 2 DM. OB - PN: Obj Exam Physical Exam: Vital signs: Temp Pulse Resp BP Pulse Ox O2 Del Method 98.0 F 85 19 87/55 L 97 Room Air 02/21/24 08:15 02/21/24 08:15 02/21/24 08:52 02/21/24 08:15 02/21/24 08:15 02/21/24 08:15 Constitutional: Constitutional: no acute distress Routine Neck Exam: Neck: Present normal inspection Routine Respiratory Exam: Respiratory: Present CTA bilaterally; Absent respiratory distress Routine Cardiovascular Exam: Cardiovascular: Present RRR; Absent murmur Routine Abdominal Exam: Abdominal: Present soft; Absent tenderness Fundus: Present firm Routine Extremities Exam: Extremities: Present normal inspection and pedal edema; Absent calf tenderness Routine Neurological Exam: Neurological: Present alert and oriented X3 Routine Psychiatric Exam: Psychiatric: Present normal affect Wound Management: Method: suture Examination: Present clean and dry; Absent erythematous Comments: Pfannenstiel incision, Silver Mepilex dressing present. OB - PN: Obj Data Labs Labs: Laboratory Results - last 24 hr 02/21/24 06:12 Hgb 12.2 OB - PN: A/P Delivery Assessment and Plan (1) Gestational diabetes mellitus (GDM): Problem details: Not controlled. Declines 2-h GTT . Plans to check fasting BS at home following discharge. Status: Acute (2) Rubella non-immune status, antepartum: Problem details: denies any immunization Status: Acute (3) Obesity, morbid, BMI 50 or higher: Status: Acute (4) S/P section: Status: Acute Plan day: 1 Plan: routine care
[2024-02-21] MEDS: DOCUSATE SODIUM 100 MG CAPSULE PO (13:47)
[2024-02-21] MEDS: ENOXAPARIN 40 MG/0.4 ML INJ SUBCUT (21:53)
[2024-02-21] MEDS: ACETAMINOPHEN 500 MG TABLET 1000 MG PO (21:54)
[2024-02-22 04:19] VITALS: BP 109/72; PULSE 81; RESP 17; TEMP 37; O2SAT 94
--- NOTE | 2024-02-22 09:00 | P.DS_ITS ---
DS: Providers Provider Date Seen: 02/22/24 Date of admission: 02/20/24 06:08 Primary care physician: Not a Local Provider Admitting Clinician: Faye Miller MD Attending Physician on discharge: Jossie Stroud MD Date of Discharge: 02/22/24 DS: Diagnosis Discharge Diagnosis (1) S/P section: Status: Acute (2) Gestational diabetes mellitus (GDM): Status: Acute Problem details: Declines 2-h GTT . Plans to check fasting BS at home following discharge. Exam Const: Vital Signs, click to edit/add: Vital Signs - 24 hr 02/21/24 13:32 02/21/24 21:58 02/22/24 04:19 Temperature 98.7 F 98.6 F Pulse Rate [Pulse Oximeter] 83 94 81 Respiratory Rate 17 20 17 Blood Pressure [Le ft Arm] 117/76 121/81 109/72 Pulse Oximetry 96 96 94 Oxygen Delivery Me thod Room Air Room Air Room Air Documenting provider has reviewed patient's vital signs: yes Common normals: no apparent distress and oriented x3 General appearance: cooperative and comfortable HENMT: Common normals: normocephalic Head and scalp: normocephalic Chest: Common normals: palpation of breasts normal Breast/axilla palpation: normal palpation of the axillae Nipple/areola: nipples/areola normal Resp: Common normals: normal respiratory effort Cardio: Common normals: regular rate and regular rhythm Rate: regular rate Rhythm: regular rhythm GI: Common normals: soft to palpation and non-tender Inspection: normal to inspection and incision Inspection of incision: healing well (Silver Mepilex dressing present) Palpation: soft Extremity: Common normals: normal to inspection and no pedal edema Neuro: Common normals: oriented x3 Psych: Common normals: affect normal OB - DS: Summary Hospital Course Hospital Course: The patient is a 38 year old G 2 P 1001 at 382/7 weeks gestation that was admitted to the Center on 02/20/24 for repeat section. She had an uncomplicated delivery. She delivered a viable male . She is breast feeding. the patient has done well. Peripartum Data Infant delivery method: Repeat Section Procedures: Procedures Operation Date: 02/20/24 07:15 Actual Procedure Side Surgeon p Repeat Section Faye Miller MD complications: none Infant Gender: Male Infant Discharge Plan: Home Status at Discharge Functional status at discharge: independent ambulation Overall status at discharge: patient is back to baseline Time Spent with Patient Time attestation: Total time spent providing and/or coordinating discharge services: Time spent: Less than 30 minutes Discharge Plan Discharge Disposition: Home, Self-Care Date of Admission: 02/20/24 06:08 Attending Provider on Discharge: Jossie Stroud Primary Care Provider: Provider,Not a Local Condition: Stable Anticipated Discharge Date/Time: 02/22/24 10:00 Discharge Medications: Continued prenat.vits,gloria,[id number] Tablet 1 tab PO QDAY Discharge Orders: Discharge Order (Routine); Ordered 02/22/24 Ordered By: Jossie Stroud Patient Education: OB /Breast Feeding Additional Instructions: May use OTC ibuprofen 600 mg every 6 hours, and tylenol ES 1000 mg every 6 hours as needed for pain. Can use OTC colace 100 mg once or twice daily for constipation. Dressing to be removed in the [facility] 7-10 days following delivery. Activity Level: Activity as Tolerated Discharge Diet: Regular Follow Up Appointments: Provider,Not a Local [Primary Care Provider] - Forms: [employer] Info Instructions
[2024-02-22] MEDS: DOCUSATE SODIUM 100 MG CAPSULE PO (09:59)
[2024-02-22] MEDS: ACETAMINOPHEN 500 MG TABLET 1000 MG PO (09:59)
== END 2024-02-22 11:35 | disposition home or self-care (01) | DRG 540 ==
PROVIDERS: Admitting Provider Obstetrics & Gynecology; Visit Provider Obstetrics & Gynecology
PROC: 10D00Z1 Extraction of Products of Conception, Low, Open Approach (ICD-10-PCS; CPT 59514; principal; 2024-02-20 07:15)
DX: O24.429 Gestational diabetes mellitus in childbirth, unspecified control (principal); O34.211 Maternal care for low transverse scar from previous cesarean delivery; O35.EXX0 Maternal care for other (suspected) fetal abnormality and damage, fetal genitourinary anomalies, not applicable or unspecified; G89.18 Other acute postprocedural pain; O99.214 Obesity complicating childbirth; E66.9 Obesity, unspecified; Z28.39 Other underimmunization status; Z37.0 Single live birth; Z3A.38 38 weeks gestation of pregnancy; Z87.59 Personal history of other complications of pregnancy, childbirth and the puerperium
CPT/HCPCS: 01961; 36415; 64488; 76942; 82962; 85018; 85025; 86592; 86850; 86900; 86901; 88307; A9270; C9290; J0665; J0690; J1100; J1650; J1885; J2274; J2371; J2405; J2590; J7120